=== PATIENT | female | born 1980 | race Caucasian/White ===

== ENCOUNTER 2017-07-13 00:52 | Emergency (ER) | payer OTHER ==
[~2017-07-13] VITALS: Ht 152.4 cm; Wt 68.0 kg
[2017-07-13] MEDS ORDERED: birthcontrol (01:10)
[2017-07-13] MEDS ORDERED: LIDOCAINE 1% INJ 50 ML (XYLOCAINE) VIAL ONE (01:36)
[2017-07-13] MEDS ORDERED: ONDANSETRON 4 MG (ZOFRAN) ORAL DISSOLVE TAB SL ONE (01:45)
[2017-07-13] MEDS ORDERED: LIDOCAINE 1% INJ 20 ML (XYLOCAINE) VIAL INJ ONE (01:45)
[2017-07-13] MEDS ORDERED: RX-HYDROCODONE/APAP 5/325 MG #4 TAB PK PO PRN (02:15)
--- NOTE | 2017-07-13 02:16 | ED Fall/Injury ---
General Chief Complaint: Skin/Wound Problems Stated Complaint: LAC ON L HAND Nursing Triage Note: abraision to left hand, right elbow s/p fall. denies other injuries. Source: patient Exam Limitations: no limitations History of Present Illness Date Seen by Provider: Jul 13, 2017 Time Seen by Provider: 00:55 Initial Comments This 36-year-old woman presents to the emergency room with left hand injury after falling on the sidewalk. She admits to be intoxicated as she consumed a large amount of alcohol tonight. She was walking in sandals and tripped on the sidewalk. She caught her left hand on the ground or some other object resulting in injury to the fourth and fifth finger. She reports these fingers were corrected when she assessed them after the fall. She pulled on both of them to straighten them out. She has rather intense pain at this time. She also complains of pain in the right elbow and has an abrasion over the right elbow. She denies any head injury or loss of consciousness. She is alert, oriented, and ambulatory. Patient admits to drinking daily in small quantities and large quantities on the weekend. Allergies and Home Medications Allergies Coded Allergies: latex (Verified Allergy, Unknown, 07/13/17) Uncoded Allergies: antibiotic (Adverse Reaction, Unknown, 07/13/17) Home Medications Hydrocodone/Acetaminophen 1 Each Tablet, 1 EACH PO Q4H PRN for PAIN-MODERATE TO SEVERE Prescribed by: GUCCI ARRIAGA on 07/13/17 0217 Patient Home Medication List Home Medication List Reviewed: Yes Constitutional: see HPI Eyes: No Symptoms Reported Ears, Nose, Mouth, Throat: no symptoms reported Respiratory: no symptoms reported Cardiovascular: no symptoms reported Gastrointestinal: no symptoms reported Genitourinary: no symptoms reported Musculoskeletal: see HPI Skin: see HPI Psychiatric/Neurological: See HPI Past Vwxtqzh-Lxvoje-Qfxpna Hx Patient Social History Alcohol Use: Occasionally Uses Recreational Drug Use: No Smoking Status: Never a Smoker 2nd Hand Smoke Exposure: Yes Recent Foreign Travel: No Contact w/Someone Who Travel: No Recent Infectious Disease Expo: No Recent Hopitalizations: No Immunizations Up To Date Tetanus Booster (TDap): Less than 5yrs Seasonal Allergies Seasonal Allergies: No Surgeries History of Surgeries: Yes Surgeries: Breast, Section, Orthopedic Respiratory History of Respiratory Disorde: No Cardiovascular History of Cardiac Disorders: No Neurological History of Neurological Disord: No Reproductive System : No ( control) Genitourinary History of Genitourinary Disor: No Gastrointestinal History of Gastrointestinal Di: No Musculoskeletal History of Musculoskeletal Dis: Yes Musculoskeletal Disorders: Arthritis Endocrine History of Endocrine Disorders: No HEENT History of HEENT Disorders: No Cancer History of Cancer: No Psychosocial History of Psychiatric Problem: No Integumentary History of Skin or Integumenta: No Blood Transfusions History of Blood Disorders: No Physical Exam Vital Signs Vital Signs - First Documented 07/13/17 01:00 Temp 97.8 Pulse 117 Resp 18 B/P (MAP) 121/82 (95) Pulse Ox 97 O2 Delivery Room Air Capillary Refill : Less Than 3 Seconds General Appearance: WD/WN, moderate distress, other (intoxicated) HEENT: PERRL/EOMI Neck: normal inspection Cardiovascular: regular rate, rhythm, no edema, no murmur Respiratory: lungs clear, normal breath sounds, no respiratory distress, no accessory muscle use Extremities: other (tenderness, pain, and swelling in the fourth and fifth fingers of the left.. Normal sensation and capillary refill. Abrasion and mild tenderness over the right elbow.) Neurologic/Psychiatric: clinical pathologist II-XII nml as tested, no motor/sensory deficits, alert, normal mood/affect, oriented x 3 Skin: normal color, warm/dry, other (subtle abrasions on the left fingers. Larger abrasion on the right elbow.) [place] Coma Score Best Eye Response: (4) Open Spontaneously Best Verbal Response: (5) Oriented Best Motor Response: (6) Obeys Commands [place] Total: 15 Progress/Results/Core Measures Results/Orders My Orders Orders - GUCCI MCKEON MD Elbow, Right, 3 Views (07/13/17 01:04) Hand, Left, 3 Views (07/13/17 01:04) Lidocaine 1% Injection (Xylocaine 1% Inj (07/13/17 01:45) Lidocaine 1% (Xylocaine 1%) (07/13/17 01:36) Ondansetron Oral Dissolve Tab (Zofran (07/13/17 01:45) Rx-Hydrocodone/Apap 5-325 Mg (Rx-Vicodin (07/13/17 02:15) Medications Given in ED Current Medications Medications Dose Ordered Sig/Froylan Route Start Time Stop Time Status Last Admin Dose Admin Acetaminophen/ Hydrocodone Bitart 1 ea Q4H PRN PO 07/13/17 02:15 07/13/17 02:22 DC 07/13/17 02:22 1 EA Lidocaine HCl 20 ml ONCE ONCE INJ 07/13/17 01:45 07/13/17 01:46 DC 07/13/17 01:47 20 ML Ondansetron HCl 8 mg ONCE ONCE SL 07/13/17 01:45 07/13/17 01:46 DC 07/13/17 01:47 8 MG Vital Signs/I&O Vital Sign - Last 12Hours 07/13/17 07/13/17 01:00 02:22 Temp 97.8 97.1 Pulse 117 95 Resp 18 18 B/P (MAP) 121/82 (95) 120/79 (95) Pulse Ox 97 99 O2 Delivery Room Air Room Air Blood Pressure Mean: 95 Progress Note : Progress Note Patient declined pain medication. Lidocaine was used to perform digital blocks on the fourth and fifth finger of the left hand. Approximately 8 ml of 1% percent lidocaine was injected. The angulated fourth finger was then reduced. A splint was then fashioned out of 2 inch Ortho-Glass. Patient was nauseated and Zofran was given. Capillary refill was intact in the fingers after splinting. Diagnostic Imaging Diagonstic Imaging: Xray Plain Films/CT/US/NM/MRI: hand Comments X-rays of the right hand show fractures at the base of the proximal phalanx of both the fourth and fifth finger. The fracture of the fifth finger appears impacted. The fracture of the fourth finger is angulated, displaced, and possibly comminuted. Departure Impression Impression: Primary Impression: Fracture of proximal phalanx of finger of left hand Additional Impressions: Fall from other slipping, tripping, or stumbling Alcohol intoxication Qualified Codes: F10.929 - Alcohol use, unspecified with intoxication, unspecified Multiple abrasions Disposition: 01 HOME, SELF-CARE Condition: Improved Departure-Patient Inst. Decision time for Depature: 02:12 Referrals: NO,LOCAL PHYSICIAN (PCP) Primary Care Physician OMAR CARDONA MD Patient Instructions: Finger Fracture Add. Discharge Instructions: Icing in 20 minute intervals, rest, and elevation should help with pain and swelling. Use hydrocodone as prescribed for pain. Avoid NSAID medications such as ibuprofen, aspirin, Aleve, naproxen, etc. until approved by your orthopedic provider. Follow-up with Dr. Cardona or an orthopedic provider of your choice on Friday. Dr. Cardona's contact information is below. Return to care if you have any problems, concerns, or complications. All discharge instructions reviewed with patient and/or family. Voiced understanding. Scripts Hydrocodone/Acetaminophen (Hydrocodone-Acetamin 5-325 mg) 1 Each Tablet 1 EACH PO Q4H Y for PAIN-MODERATE TO SEVERE, #10 TAB Prov: GUCCI MCKEON MD 07/13/17 GUCCI MCKEON MD Jul 13, 2017 02:16
[2017-07-13] MEDS ORDERED: HYDR-3812 PO (02:17)
[2017-07-13 02:22] VITALS: BP 120/79
--- NOTE | 2017-07-13 07:41 | Diagnostic Imaging Report ---
INDICATION: Fall, left hand pain and abrasions left hand. EXAMINATION: 07/13/2017 FINDINGS: 3 views of the hand. There is a fracture involving the proximal aspects of the fourth and fifth proximal phalanges. Both fractures are angulated with apex volar angulation. Post reduction films recommended. The fracture at the base of the fifth proximal phalanx likely extends into the adjacent proximal metacarpophalangeal joint. The remaining osseous structures appear to be intact. IMPRESSION: 1. Fractures of the fourth and fifth proximal phalanges as described above. Dictated by: Dictated on workstation # [id number]
--- NOTE | 2017-07-13 07:43 | Diagnostic Imaging Report ---
INDICATION: Fall, right elbow pain, abrasions. EXAMINATION: Right elbow 07/13/2017. COMPARISONS: None. FINDINGS: 3 views of the elbow demonstrate no significant effusion. Alignment is preserved. There is a very vague lucency through the radial head possibly a fracture line seen on 2 views. However, a joint effusion is not seen and would be expected. IMPRESSION: 1. Questioned lucency in the radial head which could be a prominent nutrient foramen with a fracture difficult to exclude. If there is persistent pain, a followup in 7-10 days recommended. Dictated by: Dictated on workstation # [id number]
== END 2017-07-13 02:22 | disposition home or self-care (01) ==
LOC: EDUNIT# 00:52 → ER 00:55
DX: S62.615A Displaced fracture of proximal phalanx of left ring finger, initial encounter for closed fracture (principal); S62.617A Displaced fracture of proximal phalanx of left little finger, initial encounter for closed fracture; R40.2142 Coma scale, eyes open, spontaneous, at arrival to emergency department; R40.2252 Coma scale, best verbal response, oriented, at arrival to emergency department; R40.2362 Coma scale, best motor response, obeys commands, at arrival to emergency department; F10.129 Alcohol abuse with intoxication, unspecified; Z77.22 Contact with and (suspected) exposure to environmental tobacco smoke (acute) (chronic); Z87.59 Personal history of other complications of pregnancy, childbirth and the puerperium; Z91.048 Other nonmedicinal substance allergy status; Z88.1 Allergy status to other antibiotic agents; W01.0XXA Fall on same level from slipping, tripping and stumbling without subsequent striking against object, initial encounter; Y92.480 Sidewalk as the place of occurrence of the external cause
CPT/HCPCS: 29130; 73080; 73130

== ENCOUNTER 2021-08-07 12:06 | Inpatient (IN) | payer MEDICAID, OTHER ==
[~2021-08-07] VITALS: Ht 152.4 cm; Wt 58.3 kg
[~2021-08-07 12:06] MED LIST: ACHD5005 PO; birthcontrol
[2021-08-07 12:30] LABS: BILIRUBIN,URINE NEGATIVE (NEGATIVE); CLARITY,URINE CLEAR; COLOR,URINE YELLOW; GLUCOSE, URINE (UA) NEGATIVE (NEGATIVE); KETONES,URINE NEGATIVE (NEGATIVE); LEUKOCYTE ESTERASE ,URINE NEGATIVE (NEGATIVE); NITRITE,URINE NEGATIVE (NEGATIVE); PH,URINE 5.5 (5-9); PROTEIN,URINE NEGATIVE (NEGATIVE)
[2021-08-07] MEDS ORDERED: NS (IVPB) 0 ML ONE (12:33)
[2021-08-07 12:37] VITALS: BP 145/98
[2021-08-07] MEDS ORDERED: HEParin 1000 UNIT/ML (10ML VIAL) FOR BOLUS ONE (12:42)
[2021-08-07] MEDS ORDERED: HEParin (CATH LAB) 1,000 ML IV ONE ×2 (12:43→12:47)
[2021-08-07] MEDS ORDERED: NS IV 1000 ML 1,000 ML ONE (12:43)
[2021-08-07 12:44] LABS: BACTERIA,URINE NEGATIVE /HPF; SQUAMOUS EPITHELIAL CELL,UR RARE /HPF; WBC,URINE RARE /HPF
[2021-08-07] MEDS ORDERED: fentaNYL INJ 100 MCG/2 ML AMP ONE (12:45)
[2021-08-07] MEDS ORDERED: EPINEPHrine 1 MG INJECTION 8 MG in NS (IVPB) 242 ML IV SCH (12:45)
[2021-08-07] MEDS ORDERED: MIDAZOLAM 5 MG/5 ML (VERSED) VIAL ONE (12:45)
[2021-08-07] MEDS ORDERED: NITRO DRIP 25000 MCG/D5W 250 ML IV ONE (12:52)
[2021-08-07] MEDS ORDERED: LIDOCAINE 1% INJ 20 ML VIAL ONE (12:53)
[2021-08-07] MEDS ORDERED: NS IV 1000 ML 1,000 ML IV ONE (13:00)
[2021-08-07] MEDS ORDERED: NS IV 1000 ML 1,000 ML IV SCH (13:00)
--- NOTE | 2021-08-07 13:06 | ED CPR ---
HPI-CPR General Chief Complaint: Respiratory Problems Stated Complaint: UNRESPONSIVE Source of Information: Family, RN/MD ([facility]) Exam Limitations: Other (No pulse so unable to give any history) History of Present Illness Date Seen by Provider: Aug 07, 2021 Time Seen by Provider: 12:06 Allergies and Home Medications Allergies Coded Allergies: latex (Verified Allergy, Unknown, 07/13/17) Uncoded Allergies: antibiotic (Adverse Reaction, Unknown, 07/13/17) Patient Home Medication List Home Medication List Reviewed: Yes Hydrocodone Bit/Acetaminophen (Lortab 5 Mg Tablet) 1 Each Tablet, 1 EACH PO Q4H PRN for PAIN-MODERATE TO SEVERE Prescribed by: GUCCI ARRIAGA on 07/13/17 0217 [birthcontrol] , 1, (Reported) Entered as Reported by: ANUP COTTRELL on 07/13/17 0110 Review of Systems Review of Systems Constitutional: see HPI (Patient does not give a meaningful review of systems or history as she is pulseless) All Other Systems Reviewed Negative Unless Noted: Yes (Family states the patient has been doing well up until today) Past Givkyoy-Mzxpbb-Homqmr Hx Patient Social History Tobacco Use?: Yes Use of E-Cig and/or Vaping dev: No Substance use?: No Immunizations Up To Date Tetanus Booster (TDap): Less than 5yrs Seasonal Allergies Seasonal Allergies: No Past Medical History Surgeries: Yes Breast, Section, Orthopedic Respiratory: No Cardiac: No Neurological: No Genitourinary: No Gastrointestinal: No Musculoskeletal: Yes Arthritis Endocrine: No HEENT: No Cancer: No Psychosocial: No Integumentary: No Blood Disorders: No Physical Exam Vital Signs Capillary Refill : Height, Weight, BMI Height: 5'0" Weight: 150lbs. oz. 68.015638vf; BMI Method:Stated General Appearance: WD/WN, Severe Distress HEENT: PERRL/EOMI (Postcode they were reactive, 3 mm bilateral, symmetric), Pharynx Normal, Moist Mucous Membranes Neck: Full Range of Motion, Normal Inspection Respiratory: Lungs Clear, Normal Breath Sounds, Respiratory Distress (Agonal gasping) Cardiovascular: No Edema; No Normal Peripheral Pulses; Other (Pulseless V. Fibrillation on the monitor after arrival) Gastrointestinal: No Organomegaly, Soft Extremity: Slow Capillary Refill, Other (Mottled extremities acral cyanosis and and perioral cyanosis) Neurologic/Psychiatric: Other (Obtunded, pulseless GCS 3 on arrival) Skin: Cyanosis, Mottled Procedures/Interventions Reason for Intubation: CPR Date of ETT Placement: Aug 07, 2021 Time of ETT Placement: 12:11 Intubation Method: orotracheal Tube Size: 7.5 Positive End Tide CO2: Yes Breath Sounds after Intubation: bilateral-equal Intubation Complications: no complications Post Intubation Xray: Yes Left mainstem bronchus intub Intubation using video laryngoscope with a channel, 3 Lucas Juan vision by Alan Marcum under direct supervision of this provider. Little bit of clear saliva seen but no emesis. Progress/Results/Core Measures Results/Orders Lab Results Laboratory Tests Test 08/07/21 12:23 Range/Units Urine Color YELLOW Urine Clarity CLEAR Urine pH 5.5 5-9 Urine Specific [place] 1.025 H 1.016-1.022 Urine Protein NEGATIVE NEGATIVE Urine Glucose (UA) NEGATIVE NEGATIVE Urine Ketones NEGATIVE NEGATIVE Urine Nitrite NEGATIVE NEGATIVE Urine Bilirubin NEGATIVE NEGATIVE Urine Urobilinogen 0.2 < = 1.0 MG/DL Urine Leukocyte Esterase NEGATIVE NEGATIVE Urine RBC (Auto) NEGATIVE NEGATIVE Urine RBC NONE /HPF Urine WBC RARE /HPF Urine Squamous Epithelial Cells RARE /HPF Urine Crystals NONE /LPF Urine Bacteria NEGATIVE /HPF Urine Casts NONE /LPF Urine Mucus NEGATIVE /LPF Urine Culture Indicated NO My Orders Orders - YANELI SPARKS Ns (Ivpb) (Sodium C... W/Epinephrine 1 (08/07/21 12:45) Ns (Ivpb) (Sodium C... W/Epinephrine 1 (08/07/21 12:45) Ns (Ivpb) (Sodium Chloride 0.9%) (08/07/21 12:33) Ed Iv/Invasive Line Start (08/07/21 12:52) Ns Iv 1000 Ml (Sodium Chloride 0.9%) (08/07/21 13:00) Ns Iv 1000 Ml (Sodium Chloride 0.9%) (08/07/21 13:00) Lidocaine Drip (Xylocaine Drip) (08/07/21 13:00) Accucheck Stat ONCE (08/07/21 12:52) Initial ECG Impression Date: Aug 07, 2021 Initial ECG Impression Time: 12:27 Initial ECG Rate: 93 Initial ECG Rhythm: Normal Sinus Initial ECG Intervals: QT (499) Initial ECG Impression: Acute MN Initial ECG Comparisson: No Previous ECG Available Comment Normal sinus rhythm with clinically significant ST elevation in leads V3, V4, V5 consistent with an anterolateral STEMI Diagnostic Imaging Diagonstic Imaging: Xray Plain Films/CT/US/NM/MRI: chest Comments [facility] [place] [facility] [employer], [place] NAME: INGRID BRITT [facility] REC#: [id number] PT STATUS: REG SDC : 1980 PHYSICIAN: DANE DYER MD ADMIT DATE: 08/07/21/ICU Signed Date of Exam:08/07/21 CHEST 1 VIEW, AP/PA ONLY EXAMINATION: Chest, one view. HISTORY: Endotracheal tube placement. COMPARISON: None available. FINDINGS: Heart size is normal. There is prominence of the pulmonary vasculature. An endotracheal tube is present within the left mainstem bronchus. Mild interstitial opacities within the perihilar and lower lungs. No pleural effusion or pneumothorax. The osseous structures are intact. IMPRESSION: 1. Endotracheal tube located within the left mainstem bronchus. Recommend retracting the catheter at least 3-4 cm. 2. Perihilar and bibasilar interstitial opacities which could be seen with pulmonary edema. Dictated by: Dictated on workstation # [id number] Dict: 08/07/21 1533 Trans: 08/07/21 1555 [id number] Interpreted by: ANUP CABRAL DO Electronically signed by: ANUP CABRAL DO 08/07/21 1555 Reviewed: Reviewed by Sc Critical Care Note Critical Care Start Time: 12:06 Stop Time: 13:00 Total Time (minutes) 54m Progress Patient arrived pulseless and chest compressions were begun in her car. A gurney was brought out and we brought her in. We started gri-skynk-kiiy ventilation as soon as we got into the ER bay 1. A code was called and appropriate help assembled. Please see nursing notes for times. An IO was put in her left tibia and she was given 2 mg Narcan through it. She was noted to be in ventricular fibrillation and delivered 200 J shock then had no pulse, asystole. 1210 pulse check again showed asystole and ET tube was placed 7.522 at the teeth with positive color change and bilateral symmetric breath sounds. Milligram epi was given along with a liter of normal saline initiated at 1212. 1213 200 J for atrial fibrillation delivered. 1215 bicarb was given. 1213 22-gauge IV in the right hand established and a 22-gauge in the left AC. 1214 144 blood sugar 1215 200 J shock for ventricular tachycardia. 1 mg epinephrine given. 1218 and amp of calcium was given 1217 300 mg amiodarone bolused IV 1218 V. fib 200 J shock given 1219 100 mg lidocaine IV given and another milligram of epinephrine IV. 1220 magnesium sulfate 1 g IV given. Ventricular fibrillation and 200 J shock delivered 1221 a Bronson was placed 1222 ventricular fibrillation and 200 J shock was delivered, pads were ascertained to be in the correct positioning 1223 1 mg epi 1224 PEA 1226 bicarb 1 amp given, second dose. 1 mg epinephrine IV given 1226 pulse check revealed the patient had a pulse and an EKG were ordered. Epinephrine drip, blood pressure and EKG ordered 1229 1/2 mg epinephrine push dose was ordered 1231 another half milligram of epinephrine was ordered push dose IV 1232 heart rate getting down into the upper 60s and a milligram of epinephrine was ordered and epinephrine drip was being initiated. EKG revealed STEMI in the anterior lateral leads and cardiology was called. 1235: Dr. Rojas arrives to the ER if examines the patient and agrees with not doing an amiodarone drip but doing a lidocaine drip 2 mg/h IV. He will take her to the Coding File [facility]. Dr. Rojas and this provider then spoke to the daughter got some more history and revealed to them that her chances were poor but we would take her to the C[facility] where we would do our best to maximize her opportunity to survive. 1240 lidocaine drip was initiated. 1242 epinephrine drip was initiated at 0.1 mcg/kg/min. 1245 NG tube placed by this provider. 1248 epinephrine drip was increased to 0.2 mcg/kg/min 1250 epinephrine drip was increased to 0.3 mcg/kg/min 1254 to the Coding File Clerk 1300 cath initiated Departure Communication (Admissions) Time/Spoke to Admitting Phy: 12:32 Dr. Rojas to the ER, reviewed the patient and agrees to take her to the Coding File Clerk. Impression Primary Impression: STEMI (ST elevation myocardial infarction) Qualified Codes: I21.3 - ST elevation (STEMI) myocardial infarction of unspecified site Additional Impression: Cardiogenic shock Disposition: ADMITTED INPATIENT Condition: Critical Admissions Decision to Admit Reason: Admit from ER (General) Decision to Admit/Date: Aug 07, 2021 Time/Decision to Admit Time: 12:32 Departure-Patient Inst. Referrals: NO,LOCAL PHYSICIAN (PCP/Family) Primary Care Physician YANELI SPARKS Aug 07, 2021 13:06
[2021-08-07] MEDS ORDERED: EPTIFIBATIDE DRIP 100 ML IV ONE (13:16)
[2021-08-07] MEDS ORDERED: EPTIFIBATIDE BOLUS 20 ML IV ONE (13:17)
[2021-08-07] MEDS ORDERED: NS (IVPB) 250 ML ONE (13:23)
[2021-08-07] MEDS ORDERED: niCARdipine IV FOR DRIP 50 MG KIT ONE (13:23)
[2021-08-07] MEDS ORDERED: CLOPIDOGREL 300 MG (PLAVIX) TABLET PO ONE (14:06)
[2021-08-07] MEDS ORDERED: ASPIRIN 81 MG CHEW (CHILDREN'S ASA) ONE (14:06)
--- NOTE | 2021-08-07 14:13 | Cardiology History & Physical ---
HPI-Cardiology Cardiology H&P Date of Admission 08/07/2021 Primary Care Physician [facility] Attending Physician Conrado Rojas MD, MA FACP [facility] Consulting Physician HPI 41 yo woman who presented to the ER in cardiac arrest. No history available. Sta monika to have gone to her doctor's for shortness of breath. Underwent resuscitation in the ER. Details of that are to be provided by the ER physician. Pulse and bp were restored, but remained in shock, requiring pressor support. ECG showed ant-lat ST elevation, indicating an OK as the source of her arrest and shock. Emergency cath was recommended, despite apparently very poor prognos is. I spoke with her only relative present (a 19 yo daughter) who agreed with emergency cath Review of Systems-Cardiology Review of Systems Constitutional: other (pt unresponsive) CFI-Wndjyl-Ffvyze Hx Patient Social History 2nd Hand Smoke Exposure: Yes Immunizations Up To Date Tetanus Booster (TDap): Less than 5yrs Past Medical History PMH As described under Assessment. Family Medical History Family Medical History: Fam h/o unobtainable (pt unresponsive) Allergies and Home Medications Allergies Coded Allergies: latex (Verified Allergy, Unknown, 07/13/17) Uncoded Allergies: antibiotic (Adverse Reaction, Unknown, 07/13/17) Patient Home Medication List Home Medication List Reviewed: Yes Hydrocodone Bit/Acetaminophen (Lortab 5 Mg Tablet) 1 Each Tablet, 1 EACH PO Q4H PRN for PAIN-MODERATE TO SEVERE Prescribed by: GUCCI ARRIAGA on 07/13/17 0217 [birthcontrol] , 1, (Reported) Entered as Reported by: ANUP COTTRELL on 07/13/17 0110 Physical Exam-Cardiology Physical Exam Vital Signs/I&O Capillary Refill : Constitutional: well-developed, well-nourished, other (unresponsive) HEENT: other (unresponsive, pupils sluggishly responsive) Neck: carotid pulses are 2 + bilaterally Respiratory: No accessory muscle use; other (on mech vent) Cardiovascular: regular rate-rhythm, S1 and S2, systolic murmur (soft LIS at card basee) Gastrointestinal: soft; No audible bowel sounds Extremities: No clubbing, No cyanosis, No significant edema Neurologic/Psychiatric: other (unresponsive) Skin: cool; No rash, No ulcerations Data Review Labs Laboratory Tests 08/07/21 12:14: Glucometer 144H 08/07/21 12:23: Urine Color YELLOW, Urine Clarity CLEAR, Urine pH 5.5, Urine Specific [place] 1.025H, Urine Protein NEGATIVE, Urine Glucose (UA) NEGATIVE, Urine Ketones NEGATIVE, Urine Nitrite NEGATIVE, Urine Bilirubin NEGATIVE, Urine Urobilinogen 0.2, Urine Leukocyte Esterase NEGATIVE, Urine RBC (Auto) NEGATIVE, Urine RBC NONE, Urine WBC RARE, Urine Squamous Epithelial Cells RARE, Urine Crystals NONE, Urine Bacteria NEGATIVE, Urine Casts NONE, Urine Mucus NEGATIVE, Urine Culture Indicated NO A/P-Cardiology Assessment/Admission Diagnosis Cardiac arrest and subsequent cardiogenic shock due to acute anterolat OK - card cath of 08/07/21: mid-vessel occlusion of LAD (treated with primary angioplasty and stenting with SkyPoint 2.5x33 stent), 60-70% prox stenosis of RCA, LVEDP 39 mmHg, LVEF 25%, ant-lat and apical hypokinesis to akinesis Admission Status: Inpatient Order (span 2 midnights) Reason for Inpatient Admission: Ac OK Cardiogenic shock Cardiac arrest Discussion and Recomendations * Admit to ICU * Hospitalist and ICU consults * Treat with DAPT, beta-casandra, OSMEL-inhib/Entresto, and spironolactone, as tolerated * Monitor labs * Prognosis guarded CONRADO ROJAS MD FACP [facility] Aug 07, 2021 14:13
[2021-08-07] MEDS ORDERED: PATIENT MAY USE OWN MEDS, ALL PO SCH (14:30)
[2021-08-07 14:32] VITALS: BP 134/67
--- NOTE | 2021-08-07 14:38 | CARDIAC CATHETERIZATION ---
DATE OF SERVICE: 08/07/2021 CARDIAC CATHETERIZATION AND CORONARY INTERVENTION REPORT The patient is a 41-year-old lady who is stated to have collapsed at her doctor's office where she had gone for symptoms of shortness of breath. She was brought via ambulance to the emergency room and was in cardiac arrest at the time of presentation. The emergency room physician carried out resuscitation and was eventually able to restore pulse and blood pressure. For details of resuscitation, please refer to the emergency room physician note. The patient was also intubated and placed on mechanical ventilation. She remained unresponsive throughout my evaluation and was not able to respond to any questions at all. The electrocardiogram showed ST elevation in the anterolateral leads. It appears likely that the cause of her cardiac arrest was an acute ST elevation myocardial infarction. I spoke with her daughter who was the only relative available, she is a 19-year-old girl. I explained the patient's condition to her and indicated that cardiac catheterization and attempted coronary intervention would be appropriate. She agreed. PROCEDURE IN DETAIL: She was brought to the cardiac catheterization laboratory. Right groin was prepared and draped in the usual sterile fashion. Lidocaine 1% was used for local anesthesia. Modified Seldinger technique was used to advance a 6-Bulgarian sheath in the right femoral artery. Because the culprit lesion appeared to be in the left coronary system, we advanced a 6-Bulgarian JL4 guide catheter to engage the left coronary system. This did not provide adequate engagement. We used a 6-Bulgarian JL3.5 catheter, which provided adequate engagement. We found that the left anterior descending artery was completely occluded in its mid portion. We used a ChoICE floppy wire to cross the lesion and the tip was placed in the distal vessel. We carried out balloon angioplasty with 2.0 x 20 mm balloon. This opened up the complete blockage. KELSEY flow improved from KELSEY 0 to KELSEY 2. We were not able to advance a stent, however. We proceeded with another balloon angioplasty with 2.5 x 30 mm balloon. We then tried to advance a Skypoint 2.5 x 33 mm stent. We were able to finally advance it with moderate difficulty. The stent was carefully positioned to cover the entire lesion. The stent was deployed at 14 atmospheres. Subsequent angiography revealed 0% stenosis at the previous site of complete occlusion. KELSEY flow improved from KELSEY 0 at the beginning to KELSEY 3 after percutaneous intervention. We used a 6-Bulgarian JR4 guide catheter to engage the right coronary artery and perform angiography. We used 6-Bulgarian pigtail catheter for left heart catheterization and left ventricular angiography. PERCUTANEOUS INTERVENTION TO THE LEFT ANTERIOR DESCENDING: Percutaneous intervention to the left anterior descending as described in detail above under the procedure paragraph. Please refer to that. LEFT VENTRICULAR ANGIOGRAPHY: Left ventricular angiography was carried out in the right anterior oblique projection. There is anterolateral and apical severe hypokinesis to akinesis. Left ventricular ejection fraction is approximately 25%. CORONARY ANGIOGRAPHY: Left main coronary artery does not exhibit significant disease. Left anterior descending artery was occluded in its mid portion and was successfully stented as detailed above. Following deployment of Skypoint 2.5 x 30 mm stent, there is no significant residual stenosis and flow throughout the vessel is normal. The right coronary artery is dominant and has 60% to 70% proximal stenosis. CONCLUSIONS: 1. Coronary artery disease primarily consisting of mid vessel occlusion of the left anterior descending artery leading to cardiac arrest and cardiogenic shock, treated successfully with percutaneous intervention with deployment of a Skypoint 2.5 x 33 mm stent to the mid left anterior descending, which resulted in no residual stenosis and improvement of flow from KELSEY 0 to KELSEY 3. The right coronary artery has 60% to 70% proximal stenosis. 2. Elevated left ventricular end-diastolic pressure. 3. Impairment of global left ventricular systolic function with anterolateral and apical severe hypokinesis to akinesis and left ventricular ejection fraction is approximately 25%. DISCUSSION AND RECOMMENDATIONS: She is being admitted to the Intensive Care Unit. Antiplatelet therapy is being provided. Beta casandra and OSMEL inhibitor therapy will be given as tolerated by blood pressure. The medical and intensive care services are being consulted. Prognosis appears guarded. Job ID: [id number] DocumentID: [id number] Dictated Date: 08/07/2021 14:06:33 Vice President For [employer]anthropy Date: 08/07/2021 14:37:09 Dictated By: JACKELYN BROWN MD, MA, FACP, FACC, MTDD
[2021-08-07] MEDS ORDERED: LORazepam INJ 2 MG/ML (ATIVAN) VIAL IVP NR (14:45)
[2021-08-07] MEDS ORDERED: PROPOFOL DRIP (ICU) 100 ML IV ONE (14:57)
[2021-08-07] MEDS: PROPOFOL DRIP (ICU) 100 ML IV SCH ×2 (15:00→19:21)
[2021-08-07] MEDS ORDERED: fentaNYL INJ 100 MCG/2 ML AMP IVP PRN (15:00)
--- NOTE | 2021-08-07 15:14 | Tele-ICU Consult ---
History of Present Illness History of Present Illness Date Seen by Provider: Aug 07, 2021 Time Seen by Provider: 15:14 Date of Admission (Tele-ICU Physician , consultation) Available chart/ vitals / labs / Images reviewed H&P is from ER notes Patient's information available about PMH, Shx, Fhx allergy reviewed in EMR. ROS as per chart and RN report Now in ICU, intubated , on pressors Video assessment done using teleICU camera, rest of exam as per RN Discussed with RN. Consultants: cardio Hospital course: 08/07 - OOH arrest , cathlab - stent to LAD A/P ACUTE STEMI - s/p laborer gold leaf - mid-vessel occlusion of LAD (treated with stenting ) 60-70% prox stenosis of RCA - LVEF 25%, - as per cards Cardiogenic shock - conmt on epi - as per cards s/p arrest OOH - ? myoclonus observed - Tx empirically with keppra , CTH ordered - normothermia protocl - to keep T <36 C Acute resp failure, post arrest - abg and cxr ordered await labs ( none done in ER Lines : (Central Line Necessity Reviewed) Bronson: 08/07 OG: Nutrition: Analgesia: Anxiety/ delirium VTE Prophylaxis: Stress Ulcer Prophylaxis: ppi Plans in collaboration with bedside consultants and IM MDs. Discussed with RN to reach out if any questions or concerns A total of 32 minutes of critical care time was devoted to this patient today, required to treat and/or prevent further deterioration of critical care condition ( as above Allergies and Home Medications Allergies Coded Allergies: latex (Verified Allergy, Unknown, 07/13/17) Uncoded Allergies: antibiotic (Adverse Reaction, Unknown, 07/13/17) Home Medications Hydrocodone Bit/Acetaminophen 1 Each Tablet, 1 EACH PO Q4H PRN for PAIN-MODERATE TO SEVERE Prescribed by: GUCCI ARRIAGA on 07/13/17 0217 Review of Systems Constitutional: see HPI Focused Exam Height, Weight, BMI Height: 5'0" Weight: 150lbs. oz. 68.611613oa; BMI Method:Stated Exam Exam Patient acknowledged, consented, and participated in this virtual visit which was conducted using real time audio/video Vital Signs Date Time Temp Pulse Resp B/P (MAP) Pulse Ox O2 Delivery O2 Flow Rate FiO2 08/07/21 15:00 115 27 133/74 99 Mechanical Ventilator 08/07/21 14:32 108 30 100 100 08/07/21 14:30 110 9 134/67 100 Mechanical Ventilator 08/07/21 12:37 98 24 100 100 Height & Weight Height: 5'0" Weight: 150lbs. oz. 68.700106sd; BMI Method:Stated General Appearance: Other Assessment/Plan Assessment/Plan ` DANE DYER MD Aug 07, 2021 15:14
--- NOTE | 2021-08-07 15:40 | Diagnostic Imaging Report ---
EXAMINATION: Chest, one view. HISTORY: Endotracheal tube placement. COMPARISON: None available. FINDINGS: Heart size is normal. There is prominence of the pulmonary vasculature. An endotracheal tube is present within the left mainstem bronchus. Mild interstitial opacities within the perihilar and lower lungs. No pleural effusion or pneumothorax. The osseous structures are intact. IMPRESSION: 1. Endotracheal tube located within the left mainstem bronchus. Recommend retracting the catheter at least 3-4 cm. 2. Perihilar and bibasilar interstitial opacities which could be seen with pulmonary edema. Dictated by: Dictated on workstation # [id number]
[2021-08-07 15:50] LABS: HEMATOCRIT 39 % (35-52); HEMOGLOBIN 12.4 g/dL (11.5-16.0); MEAN CORPUSCULAR HEMOGLOBIN 32 pg (25-34); MEAN CORPUSCULAR HGB CONC 32 g/dL (32-36); MEAN CORPUSCULAR VOLUME 98 fL (80-99); MEAN PLATELET VOLUME 9.4 fL (9.0-12.2); PLATELET COUNT 360 10^3/uL (130-400); WHITE BLOOD COUNT 23.3 10^3/uL (4.3-11.0)
[2021-08-07 15:59] LABS: ALBUMIN 3.6 GM/DL (3.2-4.5); POTASSIUM 2.8 MMOL/L (3.6-5.0)
[2021-08-07 16:00] LABS: CALCIUM 8.2 MG/DL (8.5-10.1)
[2021-08-07 16:02] LABS: TOTAL PROTEIN 5.8 GM/DL (6.4-8.2)
[2021-08-07 16:03] LABS: BILIRUBIN,TOTAL 0.5 MG/DL (0.1-1.0)
[2021-08-07 16:04] LABS: ABG BASE EXCESS -9.9 MMOL/L (-2.5-2.5); ABG OXYGEN SATURATION 98 % (94-100); ABG PCO2 29 MMHG (35-45); ABG PO2 116 MMHG (79-93); ABG TCO2 15.5 MMOL/L (21.0-31.0)
[2021-08-07 16:05] LABS: CREATININE SERUM 0.76 MG/DL (0.60-1.30)
[2021-08-07 16:08] LABS: ABG PH 7.33 (7.37-7.43)
[2021-08-07 16:09] LABS: INSPIRED O2 60%; PATIENT TEMP 37.9; VENTILATOR YES
[2021-08-07 16:10] LABS: AMPHETAMINE SCREEN, URINE NEGATIVE (NEGATIVE); BARBITURATE SCREEN URINE NEGATIVE (NEGATIVE); BENZODIAZEPINES SCREEN URINE NEGATIVE (NEGATIVE); CANNABINOID SCREEN, URINE NEGATIVE (NEGATIVE); COCAINE SCREEN URINE NEGATIVE (NEGATIVE); METHADONE STAT NEGATIVE (NEGATIVE); METHAMPHETAMINE SCREEN URINE S NEGATIVE (NEGATIVE); OPIATE SCREEN URINE NEGATIVE (NEGATIVE); OXYCODONE STAT NEGATIVE (NEGATIVE); PROPOXYPHENE STAT NEGATIVE (NEGATIVE); TRICYCLIC ANTIDEPRESSANTS SCRE NEGATIVE (NEGATIVE)
[2021-08-07] MEDS: EPINEPHrine 1 MG INJECTION 4 MG in NS (IVPB) 246 ML IV SCH (16:25)
[2021-08-07] MEDS: LIDOCAINE DRIP 500 ML IV SCH (16:26)
[2021-08-07] MEDS: NS IV 1000 ML 1,000 ML IV SCH (16:26)
--- NOTE | 2021-08-07 16:33 | History & Physical-Hospitalist ---
MARIANGEL PENA MED STUDENT 08/07/21 1633: History of Present Illness HPI/Chief Complaint CC: STEMI HPI: This is Miss Terry, a 41 y, with an unknown past medical history, who presented to the ED by POV and was found to be in cardiac arrest. She had gone to [facility] for worsening shortness of breath and was told to go to the emergency room. Her primary care physician is unknown at this time. During the car ride to the ED, she suffered a cardiac arrest and was unresponsive upon presentation to the ED. A code was ran for her in the ED, during which she was intubated. She was in ventricular fibrillation and required 6 defibrillations. They were able to obtain a pulse and blood pressure. Pt still in shock requiring pressor therapy. EKG was evident for anterolateral ST elevation. She was sent for emergency cardiac catheterization by Dr. Rojas. A stent was placed in her LAD. LVEF was 25%. She was then transferred to the ICU, where she is actively intubated and sedated. Source: RN/, RN notes reviewed, old records Exam Limitations: clinical condition Date Seen 08/07/21 Time Seen by a Provider: 04:15 Attending Physician Conrado Rojas MD Facp Fac Ccds PCP No,Local Physician Referring Physician Date of Admission Aug 07, 2021 at 14:26 Home Medications & Allergies Home Medications Reviewed patient Home Medication Reconciliation performed by pharmacy medication reconciliations in tube conversion technician and/or nursing. Patients Allergies have been reviewed. Allergies Allergies Coded Allergies latex (Verified Allergy, Unknown, 07/13/17) Uncoded Allergies antibiotic ( Adverse Reaction, Unknown, 07/13/17) Past Yiwvdgx-Tkkeam-Xfzreo Hx Patient Social History Tobacco Use?: No Alcohol Use?: Yes Seasonal Allergies Seasonal Allergies: No Past Medical History Surgeries: Breast, Section, Orthopedic Arthritis Blood Disorders: No Family Medical History Heart Disease (Father at young age from cardiac problems ) Information above is from older records. Unable to get accurate past medical history due to clinical condition. Review of Systems ROS-Unable to Obtain: Unable to obtain due to clinical condition Physical Exam Physical Exam Vital Signs Vital Signs - First Documented 08/07/21 08/07/21 08/07/21 12:37 14:30 16:00 Temp 37.9 Pulse 98 Resp 24 B/P (MAP) 134/67 Pulse Ox 100 O2 Delivery Mechanical Ventilator FiO2 100 Capillary Refill : Height, Weight, BMI Height: 5'0" Weight: 150lbs. oz. 68.238208ik; BMI Method:Stated General Appearance: WD/WN, Severe Distress Eyes: Bilateral Eye PERRL HEENT: PERRL/EOMI (appropriate pupillary reflex ); No Scleral Icterus (L), No Scleral Icterus (R) Neck: Non Tender; No Lymphadenopathy (L), No Lymphadenopathy (R) Respiratory: Lungs Clear, Respiratory Distress, Other (intubated and on ventilator ) Cardiovascular: No Edema, No Murmur, Normal Peripheral Pulses, Tachycardia, Other (regular rhythm ) Gastrointestinal: Normal Bowel Sounds, Soft Extremity: Normal Capillary Refill, Normal Inspection, No Pedal Edema Neurologic/Psychiatric: Other (pupillary reflex intact bilaterally, bilateral weak corneal reflexes, reflex to painful stimuli only, unable to obtain full neuro exam due to clinical condition. ) Skin: Normal Color, Warm/Dry Lymphatic: No Adenopathy Comments Patient intubated and sedated at this time. Weak corneal reflexes Withdrawals from painful stimuli Results Results/Procedures Labs Laboratory Tests 08/07/21 15:30 Patient resulted labs reviewed. Assessment/Plan Admission Diagnosis Cardiac Arrest Assessment and Plan Assessment - Cardiac arrest - Cardiogenic shock - S/P cardiac catheterization - lactic acidosis - leukocytosis - transaminitis - hypokalemia - elevated troponins Plan - appreciate cardiology - appreciate eICU - S/P LAD stenting - intubated and sedated on ventilator - IVF - Keppra - pressor therapy - Supportive care - electrolyte replacement - very poor prognosis KATHIA OCHOA DO 08/08/21 2015: History of Present Illness HPI/Chief Complaint CC: Cardiac arrest HPI: This is a 41 yr old WF with a past medical history of alcohol use in addition to early family history of premature CAD and sudden cardiac . She presents to the ICU bed 9 after cardiac cath emergently when she presented to the ER by private vehicle. She was found to have ventricular tachycardia status post multiple shocks and now remains on aggressive pressure therapy. Temperature was low overnight and maintained on the ventilator. We will check her neurological status when she is able to be weaned off the ventilator. Overall poor prognosis given her ejection fraction of 15%. Source: patient Past Rdurdqq-Kzuikl-Jvxvzq Hx Patient Social History Smoking Status: Unknown if Ever Smoked Alcohol Use?: Yes Review of Systems Constitutional: see HPI Physical Exam Physical Exam General Appearance: Chronically ill, Other (Sedated and intubated) Respiratory: Lungs Clear, Normal Breath Sounds Cardiovascular: Regular Rate, Rhythm Assessment/Plan Admission Diagnosis Assessment: Cardiac arrest Ventilator dependent Ventricular tachycardia status post shocks History of alcohol use Plan: Supportive care Monitor closely Prognosis guarded Admission Status: Inpatient Order (span 2 midnights) Reason for Inpatient Admission: Cardiac arrest Diagnosis/Problems Diagnosis/Problems (1) Cardiogenic shock (2) STEMI (ST elevation myocardial infarction) Status: Acute Qualifiers: Involved coronary artery: unspecified coronary artery Qualified Codes: I 21.3 - ST elevation (STEMI) myocardial infarction of unspecified site Supervisory-Addendum Brief Verification & Attestation Participated in pt care: history, MDM, physical Personally performed: exam, history, MDM, supervision of care Care discussed with: Medical Student Procedures: n/a Results interpretation: Verified all documentation Verification and Attestation of Medical Student E/M Service A medical student performed and documented this service in my presence. I reviewed and verified all information documented by the medical student and made modifications to such information, when appropriate. I personally performed the physical exam and medical decision making. Kathia Ochoa, Aug 09, 2021,04:56 MARIANGEL PENA MED STUDENT Aug 07, 2021 16:33 KATHIA OCHOA DO Aug 08, 2021 20:15
[2021-08-07] MEDS ORDERED: MAGNESIUM 2 GM/50 ML IVPB 50 ML IV ONE (16:45)
[2021-08-07] MEDS ORDERED: KCL 20 MEQ TAB (K-DUR) PO NR (16:45)
[2021-08-07] MEDS ORDERED: CALCIUM CHLORIDE 10% INJECTION 1 GM in NS (IVPB) 100 ML IV PRN (17:00)
[2021-08-07] MEDS ORDERED: LACRI-LUBE OPTHALMIC OINT 3.5 GM TUBE OU PRN ×3 (17:00→17:45)
[2021-08-07] MEDS ORDERED: ROCURONIUM 50 MG/5 ML (ZEMURON) VIAL IV PRN (17:00)
[2021-08-07] MEDS ORDERED: MAGNESIUM SULFATE DRIP 500 ML IV SCH (17:00)
[2021-08-07] MEDS ORDERED: fentaNYL DRIP PRE-MIX 250 ML IV SCH (17:00)
[2021-08-07] MEDS ORDERED: PROPOFOL DRIP (ICU) 100 ML IV SCH (17:00)
[2021-08-07] MEDS ORDERED: [UNRECOGNIZED DRUG - OTHER] IV SCH (17:00)
[2021-08-07] MEDS ORDERED: LACRI-LUBE OPTHALMIC OINT 3.5 GM TUBE OU SCH (17:00)
[2021-08-07] MEDS ORDERED: SODIUM PHOSPHATE INJ 30 MM in NS (IVPB) 250 ML IV PRN (17:00)
[2021-08-07] MEDS ORDERED: LORAZEPAM IV SCH (17:00)
[2021-08-07] MEDS ORDERED: SODIUM CHLORIDE IV SCH (17:00)
[2021-08-07] MEDS ORDERED: MAG SULFATE 2 GM/50 ML IV PRE-MIX BAG IV NR (17:15)
[2021-08-07] MEDS ORDERED: LORazepam INJ 2 MG/ML (ATIVAN) VIAL IV NR (17:15)
[2021-08-07] MEDS ORDERED: fentaNYL INJ 100 MCG/2 ML AMP IV NR (17:15)
[2021-08-07] MEDS ORDERED: ROCURONIUM 10 MG/ML 5 ML SYRINGE IV NR (17:15)
[2021-08-07] MEDS: POTASSIUM CL 10MEQ/50ML IVPB 50 ML IV SCH ×4 (17:35→20:13)
[2021-08-07] MEDS: MAGNESIUM 1 GM/D5W 100 ML IVPB IV SCH ×2 (17:36→18:32)
[2021-08-07] MEDS ORDERED: ROCURONIUM 10 MG/ML 5 ML SYRINGE IV PRN (17:45)
[2021-08-07 17:48] LABS: BASOPHILS % (AUTO) 0 % (0-10); EOSINOPHILS % (AUTO) 0 % (0-10); HEMATOCRIT 37 % (35-52); HEMOGLOBIN 12.3 g/dL (11.5-16.0); LYMPHOCYTES # (AUTO) 0.6 10^3/uL (1.0-4.0); LYMPHOCYTES % (AUTO) 3 % (12-44); MEAN CORPUSCULAR HEMOGLOBIN 32 pg (25-34); MEAN CORPUSCULAR HGB CONC 33 g/dL (32-36); MEAN CORPUSCULAR VOLUME 94 fL (80-99); MEAN PLATELET VOLUME 9.7 fL (9.0-12.2); MONOCYTES # (AUTO) 0.9 10^3/uL (0.0-1.0); MONOCYTES % (AUTO) 4 % (0-12); NEUTROPHILS # (AUTO) 18.7 10^3/uL (1.8-7.8); NEUTROPHILS % (AUTO) 92 % (42-75); PLATELET COUNT 303 10^3/uL (130-400); WHITE BLOOD COUNT 20.3 10^3/uL (4.3-11.0)
[2021-08-07 17:58] LABS: ALBUMIN 3.4 GM/DL (3.2-4.5)
[2021-08-07 17:59] LABS: CALCIUM 7.7 MG/DL (8.5-10.1)
[2021-08-07 18:00] LABS: FIBRIN DEGRADATION PRODUCTS >= 20.00 UG/ML (0.00-0.49); FIBRINOGEN 370 MG/DL (221-496); PARTIAL THROMBOPLASTIN TIME 50 SEC (24-35); PROTHROMBIN TIME PATIENT 13.6 SEC (12.2-14.7)
[2021-08-07] MEDS ORDERED: ACETAMINOPHEN 325 MG TABLET GT SCH (18:00)
[2021-08-07] MEDS ORDERED: POTASSIUM CL 10MEQ/50ML IVPB 50 ML IV SCH (18:00)
[2021-08-07 18:01] LABS: TOTAL PROTEIN 5.6 GM/DL (6.4-8.2)
[2021-08-07] MEDS ORDERED: ATROPINE INJECTION 1 MG/10 ML SYR (ABBOTT) ONE (18:01)
[2021-08-07 18:02] LABS: BILIRUBIN,TOTAL 0.4 MG/DL (0.1-1.0)
--- NOTE | 2021-08-07 18:03 | Diagnostic Imaging Report ---
INDICATION: Tube placement. Comparison is made with prior exam of 08/07/2021. FINDINGS: The endotracheal tube has been withdrawn slightly and now is at the thoracic inlet. There are moderate bilateral perihilar infiltrates. There is no pleural effusion or pneumothorax. The mediastinum is unremarkable. IMPRESSION: The endotracheal tube has been withdrawn slightly and now is at the thoracic inlet, approximately 1 cm above the selena. Bilateral perihilar infiltrates possibly reflecting pneumonia or central pulmonary venous congestion. Recommend clinical correlation. Dictated by: Dictated on workstation # [id number]
[2021-08-07 18:04] LABS: CREATININE SERUM 0.67 MG/DL (0.60-1.30); PHOSPHORUS 1.9 MG/DL (2.3-4.7)
[2021-08-07 18:06] LABS: BILIRUBIN,DIRECT 0.1 MG/DL (0.0-0.3); BILIRUBIN,INDIRECT 0.3 MG/DL
[2021-08-07 18:07] LABS: MAGNESIUM 1.6 MG/DL (1.6-2.4)
[2021-08-07 18:18] LABS: ABG BASE EXCESS -6.9 MMOL/L (-2.5-2.5); ABG OXYGEN SATURATION 100 % (94-100); ABG PCO2 26 MMHG (35-45); ABG PH 7.43 (7.37-7.43); ABG PO2 149 MMHG (79-93); ABG TCO2 17.1 MMOL/L (21.0-31.0)
[2021-08-07 18:22] LABS: INSPIRED O2 60%; PATIENT TEMP 38.3; VENTILATOR YES
[2021-08-07] MEDS: meTOprolol 5 MG/5 ML (LOPRESSOR) VIAL IV SCH (18:36)
[2021-08-07] MEDS ORDERED: D5W 250 ML (EXCEL) BAG IV ONE (18:48)
[2021-08-07] MEDS ORDERED: LIDOCAINE DRIP PRE-MIX 2 GM/500 ML BAG IV ONE (18:48)
[2021-08-07] MEDS ORDERED: AMIODARONE (BOLUS) 150 MG/3 ML IV ONE ×2 (18:48→18:54)
[2021-08-07 18:51] LABS: BAND NEUTROPHILS 5 %; LYMPHOCYTES % (MANUAL) 5 %; MONOCYTES % (MANUAL) 2 %; NEUTROPHILS % (MANUAL) 88 %; RBC MORPH NORMAL
[2021-08-07] MEDS ORDERED: MIDAZOLAM 5 MG/5 ML (VERSED) VIAL IJ ONE (18:54)
[2021-08-07] MEDS ORDERED: SODIUM BICARB 8.4% 50 MEQ/50 ML (ABBOTT) SYR INJ ONE (18:54)
[2021-08-07] MEDS ORDERED: CALCIUM CHLORIDE 1 GM/10 ML (IMS) SYR INJ ONE (18:54)
[2021-08-07] MEDS ORDERED: NS 1000 ML IV BAG IV ONE (18:54)
[2021-08-07] MEDS ORDERED: LIDOCAINE BOLUS 100 MG/5 ML (IMS) SYR INJ ONE (18:54)
[2021-08-07] MEDS ORDERED: EPINEPHrine 0.1 MG/ML 10 ML (HOSPIRA) SYR INJ ONE (18:54)
[2021-08-07] MEDS ORDERED: MAGNESIUM SULF 5 GM/10 ML VIAL IV ONE (18:54)
[2021-08-07] MEDS ORDERED: CATHETER FLUSH 10 ML SYR IVP ONE (18:54)
[2021-08-07] MEDS: inSUlin ASPART (NovoLOG) 1 UNIT/0.01 ML (CHARGE PER UNIT) SC SCH (19:20)
[2021-08-07] MEDS ORDERED: DexMEDEtomidine 250 ML DRIP 250 ML IV ONE (19:44)
[2021-08-07] MEDS ORDERED: NOREPINEPHRINE 8 MG/250 ML 250 ML IV ONE (19:44)
[2021-08-07] MEDS ORDERED: fentaNYL DRIP PRE-MIX 250 ML IV ONE (19:44)
[2021-08-07] MEDS: DexMEDEtomidine 250 ML DRIP 250 ML IV SCH (19:52)
[2021-08-07] MEDS: NOREPINEPHRINE 8 MG/250 ML 250 ML IV SCH (19:59)
[2021-08-07] MEDS: fentaNYL DRIP PRE-MIX 250 ML IV SCH (20:12)
[2021-08-07] MEDS ORDERED: busPIRone 15 MG (BUSPAR) TABLET GT SCH (22:00)
[2021-08-07 23:18] LABS: BILIRUBIN,URINE NEGATIVE (NEGATIVE); CLARITY,URINE CLOUDY; COLOR,URINE YELLOW; GLUCOSE, URINE (UA) NEGATIVE (NEGATIVE); KETONES,URINE TRACE (NEGATIVE); LEUKOCYTE ESTERASE ,URINE NEGATIVE (NEGATIVE); NITRITE,URINE NEGATIVE (NEGATIVE); PROTEIN,URINE 1+ (NEGATIVE)
[2021-08-07 23:27] LABS: AMORPHOUS SEDIMENT,UR LARGE AMOR URATES /LPF; BACTERIA,URINE FEW /HPF; SQUAMOUS EPITHELIAL CELL,UR 0-2 /HPF
[2021-08-08] MEDS: CEFEPIME INJECTION 1,000 MG in NS (IVPB) 50 ML IV SCH ×5 (00:30→23:36)
[2021-08-08] MEDS: meTOprolol 5 MG/5 ML (LOPRESSOR) VIAL IV SCH ×4 (00:40→17:29)
[2021-08-08] MEDS: inSUlin ASPART (NovoLOG) 1 UNIT/0.01 ML (CHARGE PER UNIT) SC SCH ×4 (01:01→18:40)
[2021-08-08 02:51] LABS: BASOPHILS % (AUTO) 0 % (0-10); EOSINOPHILS % (AUTO) 0 % (0-10); HEMATOCRIT 36 % (35-52); HEMOGLOBIN 11.7 g/dL (11.5-16.0); LYMPHOCYTES # (AUTO) 1.5 10^3/uL (1.0-4.0); LYMPHOCYTES % (AUTO) 7 % (12-44); MEAN CORPUSCULAR HEMOGLOBIN 31 pg (25-34); MEAN CORPUSCULAR HGB CONC 33 g/dL (32-36); MEAN CORPUSCULAR VOLUME 95 fL (80-99); MEAN PLATELET VOLUME 9.8 fL (9.0-12.2); MONOCYTES # (AUTO) 0.9 10^3/uL (0.0-1.0); MONOCYTES % (AUTO) 4 % (0-12); NEUTROPHILS # (AUTO) 19.9 10^3/uL (1.8-7.8); NEUTROPHILS % (AUTO) 89 % (42-75); PLATELET COUNT 425 10^3/uL (130-400); WHITE BLOOD COUNT 22.5 10^3/uL (4.3-11.0)
[2021-08-08 02:56] LABS: ABG BASE EXCESS -11.4 MMOL/L (-2.5-2.5); ABG OXYGEN SATURATION 98 % (94-100); ABG PCO2 24 MMHG (35-45); ABG PH 7.36 (7.37-7.43); ABG PO2 80 MMHG (79-93); ABG TCO2 14.5 MMOL/L (21.0-31.0)
[2021-08-08 02:57] LABS: POTASSIUM 3.3 MMOL/L (3.6-5.0)
[2021-08-08 02:58] LABS: CALCIUM 6.8 MG/DL (8.5-10.1)
[2021-08-08 03:02] LABS: ALLENS TEST YES-POS
[2021-08-08 03:03] LABS: INSPIRED O2 35%; PATIENT TEMP 33.6; VENTILATOR YES
[2021-08-08 03:03] LABS: CREATININE SERUM 0.61 MG/DL (0.60-1.30)
[2021-08-08 03:05] LABS: MAGNESIUM 2.1 MG/DL (1.6-2.4)
[2021-08-08] MEDS: NOREPINEPHRINE 8 MG/250 ML 250 ML IV SCH ×2 (03:18→11:34)
[2021-08-08] MEDS: ENALAPRILAT 2.5 MG/2 ML (VASOTEC) VIAL IV SCH ×3 (04:54→21:45)
[2021-08-08] MEDS: LIDOCAINE DRIP 500 ML IV SCH ×2 (04:55→21:53)
[2021-08-08] MEDS: EPINEPHrine 1 MG INJECTION 4 MG in NS (IVPB) 246 ML IV SCH ×3 (04:55→18:41)
[2021-08-08] MEDS: POTASSIUM CL 10MEQ/50ML IVPB 50 ML IV SCH ×5 (06:22→09:19)
[2021-08-08] MEDS: NS IV 1000 ML 1,000 ML IV SCH ×4 (06:33→22:39)
[2021-08-08] MEDS: KCL 20 MEQ TAB (K-DUR) PO SCH (06:34)
[2021-08-08] MEDS: MAGNESIUM 1 GM/100 ML IVPB 100 ML IV SCH (06:35)
--- NOTE | 2021-08-08 07:03 | Diagnostic Imaging Report ---
INDICATION: Status post cardiac arrest TECHNIQUE: Routine non contrast-enhanced axial images were obtained from the skull base to the vertex. Auto Exposure Controls were utilized during the CT exam to meet ALARA standards for radiation dose reduction COMPARISON: None. FINDINGS: The ventricles and cortical sulci are normal in size and contour. There is no midline shift or mass-effect. No acute intra-axial hemorrhage is seen. There are no abnormal areas of increased or decreased density to suggest acute hemorrhage or edema. No extra-axial masses or collections are present. The bony calvarium is intact. The visualized paranasal sinuses are unremarkable. The mastoid air cells are clear. IMPRESSION: 1. No acute intracranial abnormality. No CT evidence of mass, acute infarct or intracranial hemorrhage. 2. I agree with [facility] report. Dictated by: Dictated on workstation # [id number]
[2021-08-08 08:00] VITALS: BP 112/80
[2021-08-08] MEDS: ASPIRIN 81 MG CHEW (CHILDREN'S ASA) PO SCH (08:05)
[2021-08-08] MEDS: PANTOPRAZOLE 40 MG (PROTONIX) VIAL IV SCH (08:05)
[2021-08-08] MEDS: CLOPIDOGREL 75 MG (PLAVIX) TABLET PO SCH (08:05)
--- NOTE | 2021-08-08 08:59 | Progress Note - Cardiology ---
Cardiology SOAP Progress Note Subjective: Unresponsive On [facility] vent Objective: I&O/Vital Signs 08/07/21 08/07/21 08/07/21 08/07/21 21:05 22:00 22:00 22:12 Pulse 85 82 81 Resp B/P (MAP) 125/66 123/69 Pulse Ox 99 100 96 O2 Delivery Mechanical Ventilator Mechanical Ventilator Mechanical Ventilator O2 Flow Rate 50.00 35.00 35.00 FiO2 35 08/07/21 08/08/21 08/08/21 08/08/21 23:35 00:00 00:26 00:27 Temp 35.5 34.7 Pulse 73 Resp B/P (MAP) 112/86 Pulse Ox 95 O2 Delivery Mechanical Ventilator Mechanical Ventilator Mechanical Ventilator O2 Flow Rate 35.00 40.00 FiO2 40 08/08/21 08/08/21 08/08/21 08/08/21 00:30 01:00 01:02 02:00 Pulse 72 68 66 57 Resp B/P (MAP) 125/90 112/87 129/97 Pulse Ox 94 100 O2 Delivery Mechanical Ventilator Mechanical Ventilator Mechanical Ventilator O2 Flow Rate 40.00 40.00 40.00 08/08/21 08/08/21 08/08/21 08/08/21 02:32 03:15 03:18 03:25 Pulse 59 57 63 57 Resp B/P (MAP) 119/72 119/72 127/95 Pulse Ox 100 100 100 O2 Delivery Mechanical Ventilator Mechanical Ventilator O2 Flow Rate 40.00 35.00 FiO2 35 08/08/21 08/08/21 08/08/21 08/08/21 04:00 04:00 04:00 04:01 Temp 33.3 34.1 Pulse 59 58 Resp B/P (MAP) 121/91 121/91 Pulse Ox 100 100 100 O2 Delivery Mechanical Ventilator Mechanical Ventilator O2 Flow Rate 35.00 FiO2 35 08/08/21 08/08/21 08/08/21 08/08/21 05:00 06:00 06:59 07:00 Temp 36.1 Pulse 64 69 69 Resp B/P (MAP) 112/84 106/74 108/78 Pulse Ox 100 100 100 O2 Delivery Mechanical Ventilator Mechanical Ventilator Mechanical Ventilator O2 Flow Rate 35.00 30.00 30.00 08/08/21 08/08/21 08/08/21/20/22 07:00 07:00 07:44 07:57 Temp 36.0 36.0 Pulse 67 Resp 21 Pulse Ox 100 O2 Delivery Mechanical Ventilator O2 Flow Rate 25.00 08/08/21 08:00 Pulse 64 Resp 22 Pulse Ox 100 FiO2 25 08/08/21 00:00 Intake Total 440 ml Output Total 2050 ml Balance -1610 ml Weight (Pounds): 150 Weight (Calculated Kilograms): 68.944525 Constitutional: well-developed, well-nourished, other (unresponsive) Respiratory: No accessory muscle use; other (on mech vent) Cardiovascular: regular rate-rhythm, S1 and S2, systolic murmur (soft LIS at card basee) Gastrointestional: soft, audible bowel sounds Extremities: No clubbing, No cyanosis, No significant edema Neurologic/Psychiatric: other (unresponsive) Skin: cool; No rash, No ulcerations Results/Procedures: Labs Laboratory Tests 08/07/21 12:14: Glucometer 144H 08/07/21 12:23: Urine Color YELLOW, Urine Clarity CLEAR, Urine pH 5.5, Urine Specific Linwood 1.025H, Urine Protein NEGATIVE, Urine Glucose (UA) NEGATIVE, Urine Ketones NEGATIVE, Urine Nitrite NEGATIVE, Urine Bilirubin NEGATIVE, Urine Urobilinogen 0.2, Urine Leukocyte Esterase NEGATIVE, Urine RBC (Auto) NEGATIVE, Urine RBC NONE, Urine WBC RARE, Urine Squamous Epithelial Cells RARE, Urine Crystals NONE, Urine Bacteria NEGATIVE, Urine Casts NONE, Urine Mucus NEGATIVE, Urine Culture Indicated NO 08/07/21 13:00: Urine Opiates Screen NEGATIVE, Urine Oxycodone Screen NEGATIVE, Urine Methadone Screen NEGATIVE, Urine Propoxyphene Screen NEGATIVE, Urine Barbiturates Screen NEGATIVE, Ur Tricyclic Antidepressants Screen NEGATIVE, Urine Phencyclidine Screen NEGATIVE, Urine Amphetamines Screen NEGATIVE, Urine Methamphetamines Screen NEGATIVE, Urine Benzodiazepines Screen NEGATIVE, Urine Cocaine Screen NEGATIVE, Urine Cannabinoids Screen NEGATIVE 08/07/21 15:30: White Blood Count 23.3H, Red Blood Count 3.94, Hemoglobin 12.4, Hematocrit 39, Mean Corpuscular Volume 98, Mean Corpuscular Hemoglobin 32, Mean Corpuscular Hemoglobin Concent 32, Red Cell Distribution Width 12.1, Platelet Count 360, Mean Platelet Volume 9.4, Prothrombin Time 13.6, INR Comment 1.0, Activated Partial Thromboplast Time 50H, Fibrinogen 370, D-Dimer >= 20.00H, Sodium Level 138, Potassium Level 2.8L, Chloride Level 104, Carbon Dioxide Level 12L, Anion Gap 22H, Blood Urea Nitrogen 16, Creatinine 0.76, Estimat Glomerular Filtration Rate 102, BUN/Creatinine Ratio 21, Glucose Level 309H, Lactic Acid Level 6.65*H, Calcium Level 8.2L, Corrected Calcium 8.5, Magnesium Level 2.0, Total Bilirubin 0.5, Aspartate Amino Transf (AST/SGOT) 246H, Alanine Aminotransferase (ALT/SGPT) 165H, Alkaline Phosphatase 86, Troponin I 9.426*H, Total Protein 5.8L, Albumin 3.6, Triglycerides Level 147 08/07/21 15:55: Blood Gas Puncture Site ART LINE, Blood Gas Patient Temperature 37.9, Arterial Blood pH 7.33*L, Arterial Blood Partial Pressure CO2 29L, Arterial Blood Partial Pressure O2 116H, Arterial Blood HCO3 15*L, Arterial Blood Total CO2 15.5L, Arterial Blood Oxygen Saturation 98, Arterial Blood Base Excess -9.9L, Alo Test N/A, Blood Gas Ventilator Setting YES, Blood Gas Inspired Oxygen 60% 08/07/21 17:30: Procalcitonin 1.13H 08/07/21 17:45: White Blood Count 20.3H, Red Blood Count 3.91, Hemoglobin 12.3, Hematocrit 37, M saúl Corpuscular Volume 94, Mean Corpuscular Hemoglobin 32, Mean Corpuscular Hemoglobin Concent 33, Red Cell Distribution Width 11.9, Platelet Count 303, Mean Platelet Volume 9.7, Immature Granulocyte % (Auto) 0, Neutrophils (%) (Auto) 92H, Lymphocytes (%) (Auto) 3L, Monocytes (%) (Auto) 4, Eosinophils (%) (Auto) 0, Basophils (%) (Auto) 0, Neutrophils # (Auto) 18.7H, Lymphocytes # (Auto) 0.6L, Monocytes # (Auto) 0.9, Eosinophils # (Auto) 0.0, Basophils # (Auto) 0.0, Immature Granulocyte # (Auto) 0.1, Neutrophils % (Manual) 88, Lymphocytes % (Manual) 5, Monocytes % (Manual) 2, Band Neutrophils 5, Blood Morphology Comment NORMAL, Sodium Level 138, Potassium Level 3.0L, Chloride Level 107, Carbon Dioxide Level 13L, Anion Gap 18H, Blood Urea Nitrogen 14, Creatinine 0.67, Estimat Glomerular Filtration Rate 114, BUN/Creatinine Ratio 21, Glucose Level 213H, Lactic Acid Level 3.17*H, Calcium Level 7.7L, Corrected Calcium 8.2L, Phosphorus Level 1.9L, Magnesium Level 1.6, Total Bilirubin 0.4, Direct Bilirubin 0.1, Indirect Bilirubin 0.3, Aspartate Amino Transf (AST/SGOT) 222H, Alanine Aminotransferase (ALT/SGPT) 149H, Alkaline Phosphatase 76, Total Creatine Kinase 791H, Troponin I 19.059*H, Total Protein 5.6L, Albumin 3.4, Triglycerides Level 527#H, Amylase Level 137H, Lipase 31, Serum Test, Qualitative NEGATIVE 08/07/21 18:00: Blood Gas Puncture Site LEFT FEMORAL, Blood Gas Patient Temperature 38.3, Arterial Blood pH 7.43, Arterial Blood Partial Pressure CO2 26L, Arterial Blood Partial Pressure O2 149H, Arterial Blood HCO3 16*L, Arterial Blood Total CO2 17.1L, Arterial Blood Oxygen Saturation 100, Arterial Blood Base Excess -6.9L, Alo Test N/A, Blood Gas Ventilator Setting YES, Blood Gas Inspired Oxygen 60% 08/07/21 20:18: Lactic Acid Level 2.65*H 08/07/21 22:24: Lactic Acid Level 4.27*H 08/07/21 23:10: Urine Color YELLOW, Urine Clarity CLOUDY, Urine pH 5.0, Urine Specific Linwood >=1.030, Urine Protein 1+H, Urine Glucose (UA) NEGATIVE, Urine Ketones TRACEH, Urine Nitrite NEGATIVE, Urine Bilirubin NEGATIVE, Urine Urobilinogen 0.2, Urine Leukocyte Esterase NEGATIVE, Urine RBC (Auto) 3+H, Urine RBC 10-25H, Urine WBC NONE, Urine Squamous Epithelial Cells 0-2, Urine Crystals PRESENTH, Urine Amorphous Sediment LARGE MITCHELL URATESH, Urine Bacteria FEWH, Urine Casts NONE, Urine Mucus NEGATIVE, Urine Culture Indicated CULTURE PENDING 08/08/21 00:38: Glucometer 183H 08/08/21 02:29: White Blood Count 22.5H, Red Blood Count 3.80, Hemoglobin 11.7, Hematocrit 36, Mean Corpuscular Volume 95, Mean Corpuscular Hemoglobin 31, Mean Corpuscular Hemoglobin Concent 33, Red Cell Distribution Width 12.1, Platelet Count 425H, Mean Platelet Volume 9.8, Immature Granulocyte % (Auto) 1, Neutrophils (%) (Auto) 89H, Lymphocytes (%) (Auto) 7L, Monocytes (%) (Auto) 4, Eosinophils (%) (Auto) 0, Basophils (%) (Auto) 0, Neutrophils # (Auto) 19.9H, Lymphocytes # (Auto) 1.5, Monocytes # (Auto) 0.9, Eosinophils # (Auto) 0.0, Basophils # (Auto) 0.0, Immature Granulocyte # (Auto) 0.1, Sodium Level 138, Potassium Level 3.3L, Chloride Level 110H, Carbon Dioxide Level 13L, Anion Gap 15H, Blood Urea Nitroge n 17, Creatinine 0.61, Estimat Glomerular Filtration Rate 117, BUN/Creatinine Ratio 28, Glucose Level 200H, Lactic Acid Level 4.01*H, Calcium Level 6.8L, Phosphorus Level 2.0L, Magnesium Level 2.1, Triglycerides Level 60 08/08/21 02:37: Blood Gas Puncture Site RIGHT RADIAL, Blood Gas Patient Temperature 33.6, Arterial Blood pH 7.36L, Arterial Blood Partial Pressure CO2 24L, Arterial Blood Partial Pressure O2 80, Arterial Blood HCO3 14*L, Arterial Blood Total CO2 14.5L , Arterial Blood Oxygen Saturation 98, Arterial Blood Base Excess -11.4L, Alo Test YES-POS, Blood Gas Ventilator Setting YES, Blood Gas Inspired Oxygen 35% 08/08/21 05:10: Lactic Acid Level 2.74*H 08/08/21 05:14: Glucometer 143H 08/08/21 07:40: Lactic Acid Level 1.54 Microbiology 08/07/21 Gram Stain - Final, Resulted 08/07/21 Sputum Culture - Preliminary, Resulted Laboratory Tests 08/07/21 15:30 08/07/21 17:45 08/08/21 02:29 A/P: Assessment: Cardiac arrest and subsequent cardiogenic shock due to acute anterolat OR - card cath of 08/07/21: mid-vessel occlusion of LAD (treated with primary angioplasty and stenting with SkyPoint 2.5x33 stent), 60-70% prox stenosis of RCA, LVEDP 39 mmHg, LVEF 25%, ant-lat and apical hypokinesis to akinesis - echo on 08/08/21: LVEF 20%, nathen-apical and nathen-lateral hypokinesis to akinesis Low urine output secondary to cardiogenic shock Plan: * Add dobutamine to improve cardiac output * Try to taper off Levophed * Treat with DAPT, beta-casandra, OSMEL-inhib/Entresto, and spironolactone, if bp allows * Lower iv fluid rate * iv furosemide today * Replenish K * Monitor labs * Prognosis guarded * Appreciated assistance by Juan Carlos and JACKELYN Souza MD FACP FAC CCDS Aug 08, 2021 08:59
[2021-08-08] MEDS ORDERED: KCL 20 MEQ TAB (K-DUR) PO ONE (09:00)
[2021-08-08] MEDS ORDERED: FUROSEMIDE 40 MG/4 ML INJ (LASIX) IVP ONE (09:00)
[2021-08-08] MEDS: DOBUTamine DRIP 250 ML IV SCH (09:20)
--- NOTE | 2021-08-08 09:56 | Diagnostic Imaging Report ---
Indication: Unresponsive. Time of Exam: 9:39 AM Correlation is made with prior chest one day earlier. ET tube has tip just above the selena. NG tube passes into stomach. Right upper extremity PICC line has tip overlying the SVC right atrial junction. Pacers overlie the left hemithorax. There is some mild right perihilar infiltrate. There may be some infiltrate in the left perihilar region as well however this does appear to be improved since yesterday. No effusion or pneumothorax is seen. IMPRESSION: Slight improved aeration to the perihilar regions bilaterally when compared to examination one day earlier. Dictated by: Dictated on workstation # [id number]
--- NOTE | 2021-08-08 10:55 | Tele-ICU Progress Note ---
Subjective Date Seen by a Provider: Aug 08, 2021 Time Seen by a Provider: 10:55 Subjective/Events-last exam (Tele-ICU Physician , Progress Note ) Available chart/ vitals / labs / Images reviewed Video assessment done using teleICU camera, rest of exam as per RN Discussed with RN , EXAM PER RN Events overnight : Afebrile - on ARCTIC SUN FiO2 - 25 I/O = Drips: dobutamin Pressors:levo , hemodynamically stable Discussed with RN. Sedation gtt: ( RASS ) precedex 0.3 , fentanyl 50 VENT SETTINGS and ABG reviewed Not candidate for SBT today REVIEWED Cardiovascular Stability / Sedation Score / FI02/PEEP / ABG / CXR Consultants: cardio Hospital course: 08/07 - OOH arrest , cathlab - stent to LAD 08/08 - added dobutamin , EF 20%, fio2 25 % A/P ACUTE STEMI - s/p photo lab specialist - mid-vessel occlusion of LAD (treated with stenting ) 60-70% prox stenosis of RCA - LVEF 2o% - as per cards Cardiogenic shock - on dobutamine - as per cards s/p arrest OOH - ? myoclonus observed - Tx empirically with zeferino , [facility] ordered - normothermia protocl - to keep T 36 C Acute resp failure, post arrest - AC 450 22 - +5 25% Encephalopaty post arrest - CTH 08/07 - no acute finding -- normothermia protocl - to keep T 36 C x24 h , will take arctic sun off and follow - awake , figting vent , NOT DOLLOW COMMANDS 08/08 on sedation vacation Leukocytosis - ? reactive , UA neg , ? PNA - cefepime started empirically Hyperglycemia - ISS Elev ddimer - as per echo findings mentioned in cardiology note - ( no offical report ) no findings rising suspicions for large PE Lines : RIGHT PICC 08/07 (Central Line Necessity Reviewed) Bronson: 08/07 OG: + Nutrition: to start 08/08 Analgesia: Anxiety/ delirium VTE Prophylaxis: hank 40 Stress Ulcer Prophylaxis: ppi Plans in collaboration with bedside consultants and IM MDs. Discussed with RN to reach out if any questions or concerns A total of 32 minutes of critical care time was devoted to this patient today, required to treat and/or prevent further deterioration of critical care condition ( as above Sepsis Event Evaluation Height, Weight, BMI Height: 5'0" Weight: 150lbs. oz. 68.491648sk; 29.83 BMI Method:Stated Focused Exam Lactate Level 08/08/21 02:29: Lactic Acid Level 4.01*H 08/08/21 05:10: Lactic Acid Level 2.74*H 08/08/21 07:40: Lactic Acid Level 1.54 Lactic Acid Level Laboratory Tests Test 08/08/21 07:40 Lactic Acid Level 1.54 MMOL/L (0.50-2.00) Exam Exam Patient acknowledged, consented, and participated in this virtual visit which was conducted using real time audio/video Vital Signs Date Time Temp Pulse Resp B/P (MAP) Pulse Ox O2 Delivery O2 Flow Rate FiO2 08/08/21 10:00 63 22 118/86 100 Mechanical Ventilator 25.00 08/08/21 09:20 112/82 08/08/21 09:00 61 21 102/73 100 Mechanical Ventilator 25.00 08/08/21 08:00 64 22 100 25 08/08/21 08:00 67 22 90/60 100 Mechanical Ventilator 25.00 08/08/21 08:00 99 Mechanical Ventilator 25 08/08/21 07:57 21 100 Mechanical Ventilator 25.00 08/08/21 07:44 36.0 08/08/21 07:00 36.0 08/08/21 07:00 67 08/08/21 07:00 69 21 108/78 100 Mechanical Ventilator 30.00 08/08/21 06:59 36.1 08/08/21 06:00 69 22 106/74 100 Mechanical Ventilator 30.00 08/08/21 05:00 64 22 112/84 100 Mechanical Ventilator 35.00 08/08/21 04:01 34.1 08/08/21 04:00 100 Mechanical Ventilator 35 08/08/21 04:00 33.3 58 22 121/91 100 08/08/21 04:00 59 22 121/91 100 Mechanical Ventilator 35.00 08/08/21 03:25 57 22 127/95 100 Mechanical Ventilator 35.00 08/08/21 03:18 63 119/72 08/08/21 03:15 57 22 119/72 100 Mechanical Ventilator 40.00 08/08/21 02:32 59 22 100 35 08/08/21 02:00 57 22 129/97 100 Mechanical Ventilator 40.00 08/08/21 01:02 66 22 112/87 Mechanical Ventilator 40.00 08/08/21 01:00 68 08/08/21 00:30 72 22 125/90 94 Mechanical Ventilator 40.00 08/08/21 00:27 34.7 Mechanical Ventilator 40.00 08/08/21 00:26 35.5 08/08/21 00:00 Mechanical Ventilator 40 08/07/21 23:35 73 22 112/86 95 Mechanical Ventilator 35.00 08/07/21 22:12 81 23 96 35 08/07/21 22:00 82 22 123/69 100 Mechanical Ventilator 35.00 08/07/21 22:00 Mechanical Ventilator 35.00 08/07/21 21:05 85 22 125/66 99 Mechanical Ventilator 50.00 08/07/21 20:27 Mechanical Ventilator 50.00 08/07/21 20:00 97 22 109/60 100 Mechanical Ventilator 50.00 08/07/21 19:59 90/51 08/07/21 19:52 95 95/42 08/07/21 19:30 38.2 08/07/21 19:21 94/60 08/07/21 19:00 114 08/07/21 19:00 111 22 93/74 100 Mechanical Ventilator 50.00 08/07/21 18:58 106 22 100 50 08/07/21 18:37 38.3 08/07/21 18:00 123 7 130/97 100 Mechanical Ventilator 99/69 08/07/21 17:37 38.4 08/07/21 17:00 128 15 137/92 99 Mechanical Ventilator 08/07/21 16:00 37.9 08/07/21 15:30 36.7 08/07/21 15:15 Mechanical Ventilator 08/07/21 15:00 130 107/72 08/07/21 15:00 115 27 133/74 99 Mechanical Ventilator 08/07/21 14:32 108 30 100 100 08/07/21 14:30 36.0 08/07/21 14:30 110 9 134/67 100 Mechanical Ventilator 08/07/21 14:27 113 08/07/21 12:54 95 14 99/67 100 Mechanical Ventilator 08/07/21 12:37 98 24 100 100 08/07/21 12:06 36.6 0 0 0/0 (0) 0 I & O 08/08/21 07:00 Intake Total 600 ml Output Total 2320 ml Balance -1720 ml Height & Weight Height: 5'0" Weight: 150lbs. oz. 68.891945hv; 29.83 BMI Method:Stated General Appearance: WD/WN, Severe Distress HEENT: PERRL/EOMI (Postcode they were reactive, 3 mm bilateral, symmetric), Pharynx Normal, Moist Mucous Membranes Neck: Full Range of Motion, Normal Inspection Respiratory: Lungs Clear, Normal Breath Sounds, Respiratory Distress (Agonal gasping) Cardiovascular: No Edema; No Normal Peripheral Pulses; Other (Pulseless V. Fibrillation on the monitor after arrival) Capillary Refill: Less Than 3 Seconds Extremity: Slow Capillary Refill, Other (Mottled extremities acral cyanosis and and perioral cyanosis) Neurologic/Psychiatric: Other (Obtunded, pulseless GCS 3 on arrival) Skin: Cyanosis, Mottled Lymphatic: No Adenopathy Results Lab Laboratory Tests 08/07/21 15:30 08/07/21 17:45 08/08/21 02:29 Assessment/Plan Assessment/Plan ` DANE DYER MD Aug 08, 2021 10:55
[2021-08-08] MEDS: ENOXAPARIN 40 MG/0.4 ML (LOVENOX) SYR SC SCH (11:33)
--- NOTE | 2021-08-08 12:37 | Progress Note - Hospitalist ---
MARIANGEL PENA MED STUDENT 08/08/21 1237: Subjective HPI/CC On Admission Date Seen by Provider: Aug 08, 2021 Time Seen by Provider: 09:45 CC: STEMI HPI: This is Miss Terry, a 41 y, with an unknown past medical history, who presented to the ED by POV and was found to be in cardiac arrest. She had gone to [facility] for worsening shortness of breath and was told to go to the emergency room. Her primary care physician is unknown at this time. During the car ride to the ED, she suffered a cardiac arrest and was unresponsive upon presentation to the ED. A code was ran for her in the ED, during which she was intubated. She was in ventricular fibrillation and required 6 defibrillations. They were able to obtain a pulse and blood pressure. Pt still in shock requiring pressor therapy. EKG was evident for anterolateral ST elevation. She was sent for emergency cardiac catheterization by Dr. Rojas. A stent was placed in her LAD. LVEF was 25%. She was then transferred to the ICU, where she is actively intubated and sedated. Subjective/Events-last exam Miss Terry is still intubated and sedated today. No family members are present. Review of Systems Unable to obtain due to clinical condition Focused Exam Lactate Level 08/08/21 02:29: Lactic Acid Level 4.01*H 08/08/21 05:10: Lactic Acid Level 2.74*H 08/08/21 07:40: Lactic Acid Level 1.54 Objective Exam Vital Signs Vital Signs Date Time Temp Pulse Resp B/P (MAP) Pulse Ox O2 Delivery O2 Flow Rate FiO2 08/08/21 11:34 101/70 08/08/21 11:00 68 21 100 Mechanical Ventilator 25.00 08/08/21 08:00 25 08/08/21 07:44 36.0 General Appearance: WD/WN, Mild Distress HEENT: No Scleral Icterus (L), No Scleral Icterus (R) Neck: Supple; No Lymphadenopathy (L), No Lymphadenopathy (R) Respiratory: Lungs Clear, Other (on ventilator ) Cardiovascular: Regular Rate, Rhythm, No Edema, No Murmur Gastrointestinal: Soft, Abnormal Bowel Sounds (hypoactive ) Extremity: Normal Inspection, No Pedal Edema, Slow Capillary Refill (6 second cap refill ) Neurologic/Psychiatric: Other (Pt sedated and on ventilator, absent corneal reflex, intact pupillary reflex ) Skin: Normal Color, Cool Lymphatic: No Adenopathy Results/Procedures Lab Laboratory Tests 08/07/21 15:30 08/07/21 17:45 08/08/21 02:29 Patient resulted labs reviewed. Assessment/Plan Assessment and Plan Assess & Plan/Chief Complaint Assessment - Cardiac arrest - Cardiogenic shock - S/P LAD stent placement - lactic acidosis - leukocytosis - transaminitis - hypokalemia - hypocalcemia - elevated troponins Plan - Ventilator: 450/22/5/25% - AB.36/24/80 - Continue per Cardiology plan - appreciate eICU - intubated and sedated on ventilator - IVF - IV cefepime - Norepinephrine gtt - propofol gtt - Keppra - Supportive care - electrolyte replacement - very poor prognosis KATHIA OCHOA DO 08/08/21 2016: Supervisory-Addendum Brief Verification & Attestation Participated in pt care: history, MDM, physical Personally performed: exam, history, MDM, supervision of care Care discussed with: Medical Student Procedures: n/a Results interpretation: Verified all documentation Verification and Attestation of Medical Student E/M Service A medical student performed and documented this service in my presence. I reviewed and verified all information documented by the medical student and made modifications to such information, when appropriate. I personally performed the physical exam and medical decision making. Kathia Ochoa, Aug 08, 2021,20:30 MARIANGEL PENA MED STUDENT Aug 08, 2021 12:37 KATHIA OCHOA DO Aug 08, 2021 20:16
[2021-08-08] MEDS ORDERED: ACETAMINOPHEN 325 MG TABLET ONE (13:53)
[2021-08-08] MEDS: ACETAMINOPHEN 325 MG TABLET PO PRN (13:56)
[2021-08-08] MEDS ORDERED: KETOROLAC 30 MG/ML VIAL IVP NR (17:00)
[2021-08-08 18:22] VITALS: BP 97/71
[2021-08-08] MEDS: fentaNYL DRIP PRE-MIX 250 ML IV SCH ×2 (21:22→23:36)
[2021-08-08 21:31] VITALS: BP 105/74
[2021-08-08] MEDS: DexMEDEtomidine 250 ML DRIP 250 ML IV SCH (23:22)
[2021-08-09] MEDS: meTOprolol 5 MG/5 ML (LOPRESSOR) VIAL IV SCH ×2 (00:27→06:58)
[2021-08-09] MEDS: inSUlin ASPART (NovoLOG) 1 UNIT/0.01 ML (CHARGE PER UNIT) SC SCH ×5 (00:28→23:37)
[2021-08-09 02:23] VITALS: BP 104/75
[2021-08-09 04:50] LABS: BASOPHILS % (AUTO) 0 % (0-10); EOSINOPHILS % (AUTO) 0 % (0-10); HEMATOCRIT 30 % (35-52); HEMOGLOBIN 10.1 g/dL (11.5-16.0); LYMPHOCYTES # (AUTO) 1.3 10^3/uL (1.0-4.0); LYMPHOCYTES % (AUTO) 10 % (12-44); MEAN CORPUSCULAR HEMOGLOBIN 31 pg (25-34); MEAN CORPUSCULAR HGB CONC 33 g/dL (32-36); MEAN CORPUSCULAR VOLUME 93 fL (80-99); MEAN PLATELET VOLUME 9.6 fL (9.0-12.2); MONOCYTES # (AUTO) 0.4 10^3/uL (0.0-1.0); MONOCYTES % (AUTO) 3 % (0-12); NEUTROPHILS # (AUTO) 11.3 10^3/uL (1.8-7.8); NEUTROPHILS % (AUTO) 86 % (42-75); PLATELET COUNT 171 10^3/uL (130-400); WHITE BLOOD COUNT 13.2 10^3/uL (4.3-11.0)
[2021-08-09 05:05] LABS: CALCIUM 6.3 MG/DL (8.5-10.1)
[2021-08-09 05:09] LABS: PHOSPHORUS 1.4 MG/DL (2.3-4.7)
[2021-08-09 05:10] LABS: CREATININE SERUM 0.51 MG/DL (0.60-1.30)
[2021-08-09 05:12] LABS: MAGNESIUM 1.6 MG/DL (1.6-2.4)
[2021-08-09 05:30] LABS: ABG BASE EXCESS -11.9 MMOL/L (-2.5-2.5); ABG OXYGEN SATURATION 98 % (94-100); ABG PH 7.42 (7.37-7.43); ABG PO2 95 MMHG (79-93); ABG TCO2 12.4 MMOL/L (21.0-31.0)
[2021-08-09 05:32] LABS: ALLENS TEST YES-POS; INSPIRED O2 21%; PATIENT TEMP 37.6; VENTILATOR YES
[2021-08-09 05:34] LABS: ABG PCO2 19 MMHG (35-45)
[2021-08-09] MEDS: EPINEPHrine 1 MG INJECTION 4 MG in NS (IVPB) 246 ML IV SCH ×3 (05:35→20:43)
[2021-08-09] MEDS: KCL 20 MEQ TAB (K-DUR) PO SCH (06:14)
[2021-08-09] MEDS ORDERED: MAGNESIUM 1 GM/100 ML IVPB 200 ML IV ONE (06:24)
[2021-08-09] MEDS ORDERED: POTASSIUM CL 10MEQ/50ML IVPB 250 ML IV ONE (06:24)
[2021-08-09] MEDS: CEFEPIME INJECTION 1,000 MG in NS (IVPB) 50 ML IV SCH ×4 (06:26→23:42)
[2021-08-09] MEDS: MAGNESIUM 1 GM/100 ML IVPB 100 ML IV SCH ×3 (06:27→07:52)
[2021-08-09] MEDS: POTASSIUM CL 10MEQ/50ML IVPB 50 ML IV SCH ×5 (06:27→09:39)
[2021-08-09 06:57] VITALS: BP 93/66
[2021-08-09] MEDS: NS IV 1000 ML 1,000 ML IV SCH ×2 (07:00→21:13)
[2021-08-09 07:12] VITALS: BP 93/66
[2021-08-09 08:04] LABS: ABG BASE EXCESS -8.8 MMOL/L (-2.5-2.5); ABG OXYGEN SATURATION 97 % (94-100); ABG PCO2 29 MMHG (35-45); ABG PH 7.35 (7.37-7.43); ABG PO2 91 MMHG (79-93); ABG TCO2 16.5 MMOL/L (21.0-31.0)
[2021-08-09] MEDS: DOBUTamine DRIP 250 ML IV SCH (08:05)
[2021-08-09] MEDS: PANTOPRAZOLE 40 MG (PROTONIX) VIAL IV SCH (08:06)
[2021-08-09] MEDS: ENALAPRILAT 2.5 MG/2 ML (VASOTEC) VIAL IV SCH (08:06)
[2021-08-09 08:07] LABS: ALLENS TEST YES-POS
[2021-08-09 08:08] LABS: INSPIRED O2 21; PATIENT TEMP 37.5; VENTILATOR YES
--- NOTE | 2021-08-09 08:41 | Tele-ICU Progress Note ---
Subjective Date Seen by a Provider: Aug 09, 2021 Time Seen by a Provider: 08:36 Subjective/Events-last exam (Tele-ICU Physician , consultation) Available chart/ vitals / labs / Images reviewed H&P is from ER notes Patient's information available about PMH, Shx, Fhx allergy reviewed in EMR. ROS as per chart and RN report Subjective: Pt with no major events overnight. MAPs maintained > 70s. Successfully trialed on VLT and extubated this AM. Currently on RA. Video assessment done using teleICU camera, rest of exam as per RN Discussed with RN. Consultants: cardio Sepsis Event Evaluation Height, Weight, BMI Height: 5'0" Weight: 150lbs. oz. 68.167909rr; 29.83 BMI Method:Stated Focused Exam Lactate Level 08/08/21 02:29: Lactic Acid Level 4.01*H 08/08/21 05:10: Lactic Acid Level 2.74*H 08/08/21 07:40: Lactic Acid Level 1.54 Exam Exam Patient acknowledged, consented, and participated in this virtual visit which was conducted using real time audio/video Vital Signs Date Time Temp Pulse Resp B/P (MAP) Pulse Ox O2 Delivery O2 Flow Rate FiO2 08/09/21 08:05 90 112/73 08/09/21 08:00 37.6 08/09/21 07:59 90 08/09/21 07:12 116 17 100 21 08/09/21 06:57 116 17 100 21 08/09/21 06:55 117 22 90 08/09/21 06:00 37.6 87 21 95/68 100 Mechanical Ventilator 21.00 08/09/21 05:00 37.6 86 21 106/77 100 Mechanical Ventilator 21.00 08/09/21 04:00 37.5 86 21 107/77 100 Mechanical Ventilator 21.00 08/09/21 04:00 100 Mechanical Ventilator 21 08/09/21 03:00 37.4 85 21 107/75 100 Mechanical Ventilator 21.00 08/09/21 02:23 87 22 100 21 08/09/21 02:00 37.4 95 17 104/75 100 Mechanical Ventilator 21.00 08/09/21 01:00 85 08/09/21 01:00 37.3 85 21 101/75 100 Mechanical Ventilator 21.00 08/09/21 00:00 100 Mechanical Ventilator 21 08/09/21 00:00 37.4 85 22 105/77 100 Mechanical Ventilator 21.00 08/08/21 23:22 85 98/72 08/08/21 23:00 37.5 86 21 98/72 100 Mechanical Ventilator 21.00 08/08/21 22:00 37.6 90 22 102/73 100 Mechanical Ventilator 21.00 08/08/21 21:31 87 22 100 21 08/08/21 21:00 37.8 89 22 104/77 100 Mechanical Ventilator 21.00 08/08/21 20:00 38.1 08/08/21 20:00 100 Mechanical Ventilator 21 08/08/21 20:00 37.9 98 22 103/77 100 Mechanical Ventilator 21.00 08/08/21 19:00 92 08/08/21 19:00 38.1 92 21 98/74 100 Mechanical Ventilator 21.00 08/08/21 19:00 Mechanical Ventilator 21.00 08/08/21 18:22 108 27 100 21 08/08/21 18:00 92 21 98/72 100 Mechanical Ventilator 21.00 08/08/21 17:00 92 21 95/70 100 Mechanical Ventilator 21.00 08/08/21 16:00 84 21 109/78 100 Mechanical Ventilator 21.00 08/08/21 16:00 99 Mechanical Ventilator 25 08/08/21 15:50 37.4 08/08/21 15:00 82 21 112/78 100 Mechanical Ventilator 21.00 08/08/21 14:00 80 21 114/78 100 Mechanical Ventilator 25.00 08/08/21 13:00 74 21 112/75 100 Mechanical Ventilator 25.00 08/08/21 13:00 96 08/08/21 12:00 72 21 108/77 100 Mechanical Ventilator 25.00 08/08/21 12:00 99 Mechanical Ventilator 25 08/08/21 11:34 101/70 08/08/21 11:00 68 21 116/83 100 Mechanical Ventilator 25.00 08/08/21 10:00 63 22 118/86 100 Mechanical Ventilator 25.00 08/08/21 09:20 112/82 08/08/21 09:00 61 21 102/73 100 Mechanical Ventilator 25.00 I & O 08/09/21 06:59 Intake Total 1750 ml Output Total 3125 ml Balance -1375 ml Height & Weight Height: 5'0" Weight: 150lbs. oz. 68.882929ep; 29.83 BMI Method:Stated General Appearance: Chronically ill, Other (Sedated and intubated) HEENT: No Scleral Icterus (L), No Scleral Icterus (R) Neck: Supple; No Lymphadenopathy (L), No Lymphadenopathy (R) Respiratory: Lungs Clear, Normal Breath Sounds Cardiovascular: Regular Rate, Rhythm Capillary Refill: Less Than 3 Seconds Extremity: Normal Inspection, No Pedal Edema, Slow Capillary Refill (6 second cap refill ) Neurologic/Psychiatric: Other (Pt sedated and on ventilator, absent corneal reflex, intact pupillary reflex ) Skin: Normal Color, Cool Lymphatic: No Adenopathy Results Lab Laboratory Tests 08/07/21 15:30 08/07/21 17:45 08/08/21 02:29 08/09/21 04:44 Assessment/Plan Assessment/Plan 41 y/o F s/p Cardiac arrest and subsequent cardiogenic shock due to acute anterolat [place] Cardiogenic shock: Resolved, Currently on Dobutamine 2.5. Ok to d/c per cardiology STEMI -s/p cardiac cath 08/07: (per Cards) mid-vessel occlusion of LAD (treated with primary angioplasty and stenting with SkyPoint 2.5x33 stent), 60-70% prox stenosis of RCA, LVEDP 39 mmHg, LVEF 25%, ant-lat and apical hypokinesis to akinesis -TTE: EF 20%, nathen-apical and nathen-lateral hypokinesis to akinesis -ok to d/c dobutamine today -Cont DAPT, beta-casandra, OSMEL-inhib/Entresto, and spironolactone, titrate doses as bp allows Acute hypoxic Respiratory failure 2/2 cardiac arrest Successful trialed on SBT and extubated today Altered mental status -s/p arrest OOH -Currently off all sedation. A&OX2. Cont to monitor Lines : (Central Line Necessity Reviewed) Bronson: 08/07 OG: Nutrition: Analgesia: Anxiety/ delirium VTE Prophylaxis: Stress Ulcer Prophylaxis: ppi Plans in collaboration with bedside consultants and IM MDs. Discussed with RN to reach out if any questions or concerns A total of 35 minutes of critical care time was devoted to this patient today, required to treat and/or prevent further deterioration of critical care condition ( as above MARIIA ESTEVEZ MD Aug 09, 2021 08:41
--- NOTE | 2021-08-09 09:05 | Progress Note - Cardiology ---
Cardiology SOAP Progress Note Subjective: Extubated Objective: I&O/Vital Signs 08/10/21 08/10/21 08/10/21 08/10/21 03:30 03:30 04:00 04:56 Temp 36.8 Pulse 118 Resp 30 B/P (MAP) 98/82 Pulse Ox 90 91 O2 Delivery Vapotherm Vapotherm Vapotherm O2 Flow Rate 40.00 40.00 40.00 30.00 100.00 100.00 80.00 FiO2 100 08/10/21 08/10/21 08/10/21 08/10/21 05:00 05:09 06:00 07:00 Pulse 120 120 111 Resp 17 29 B/P (MAP) 118/78 109/91 Pulse Ox 91 92 O2 Delivery Vapotherm O2 Flow Rate 30.00 30.00 30.00 80.00 90.00 90.00 08/10/21 08/10/21 08/10/21 08/10/21 07:00 07:40 08:00 08:00 Temp 36.5 Pulse 122 Resp 26 B/P (MAP) 120/80 Pulse Ox 93 91 90 O2 Delivery Vapotherm Vapotherm Vapotherm O2 Flow Rate 30.00 30.00 30.00 90.00 FiO2 90 90 08/10/21 08/10/21 08/10/21 08/10/21 08:00 09:00 09:00 09:06 Pulse 117 111 106 Resp 25 37 34 B/P (MAP) 107/82 115/69 Pulse Ox 93 91 94 96 O2 Delivery Vapotherm NIV Bilevel NIV Bilevel O2 Flow Rate 30.00 60.00 60.00 60.00 90.00 08/10/21 08/10/21 08/10/21 08/10/21 10:00 11:00 11:02 12:00 Temp 36.0 Pulse 105 122 112 Resp 21 36 31 B/P (MAP) 111/61 105/71 Pulse Ox 95 98 98 O2 Delivery NIV Bilevel NIV Bilevel O2 Flow Rate 60.00 60.00 60.00 08/10/21 08/10/21 08/10/21 08/10/21 12:00 12:21 12:58 13:00 Pulse 116 108 113 Resp 26 16 B/P (MAP) 109/84 100/75 Pulse Ox 94 100 99 O2 Delivery NIV Bilevel NIV Bilevel NIV Bilevel O2 Flow Rate 60.00 60.00 FiO2 60 08/10/21 14:00 Pulse 104 Resp 32 B/P (MAP) 100/63 Pulse Ox 100 O2 Delivery NIV Bilevel O2 Flow Rate 60.00 08/09/21 23:59 Intake Total 375 ml Output Total 565 ml Balance -190 ml Weight (Pounds): 150 Weight (Calculated Kilograms): 68.702497 Constitutional: well-developed, well-nourished, other (Oriented to self and place; asking questions as to what happened) Respiratory: No accessory muscle use; other (on mech vent) Cardiovascular: regular rate-rhythm, S1 and S2, systolic murmur (soft LIS at card basee) Gastrointestional: soft, audible bowel sounds Extremities: No clubbing, No cyanosis, No significant edema Neurologic/Psychiatric: other (awake, alert, appropriate; moving all extremities) Skin: No rash, No ulcerations Results/Procedures: Labs Laboratory Tests 08/09/21 17:30: Glucometer 97 08/09/21 23:29: Glucometer 101 08/10/21 02:23: Blood Gas Puncture Site LEFT RADIAL, Blood Gas Patient Temperature 37.4, Arterial Blood pH 7.35L, Arterial Blood Partial Pressure CO2 26L, Arterial Blood Partial Pressure O2 61L, Arterial Blood HCO3 14*L, Arterial Blood Total CO2 14.7L, Arterial Blood Oxygen Saturation 92L, Arterial Blood Base Excess -10.6L, Alo Test POSITIVE, Blood Gas Ventilator Setting NO, Blood Gas Inspired Oxygen 80% 08/10/21 02:30: White Blood Count 21.3H, Red Blood Count 3.49L, Hemoglobin 10.9L, Hematocrit 33L , Mean Corpuscular Volume 94, Mean Corpuscular Hemoglobin 31, Mean Corpuscular Hemoglobin Concent 33, Red Cell Distribution Width 12.3, Platelet Count 245, Mean Platelet Volume 9.9, Immature Granulocyte % (Auto) 1, Neutrophils (%) (Auto) 93H, Lymphocytes (%) (Auto) 3L, Monocytes (%) (Auto) 2, Eosinophils (%) (Auto) 0, Basophils (%) (Auto) 0, Neutrophils # (Auto) 19.9H, Lymphocytes # (Auto) 0.7L, Monocytes # (Auto) 0.5, Eosinophils # (Auto) 0.0, Basophils # (Auto) 0.0, Immature Granulocyte # (Auto) 0.2H, Sodium Level 134L, Potassium Level 3.5L, Chloride Level 106, Carbon Dioxide Level 12L, Anion Gap 16H, Blood Urea Nitrogen 11, Creatinine 0.55L, Estimat Glomerular Filtration Rate 120, BUN/Creatinine Ratio 20, Glucose Level 126H, Calcium Level 7.0L, Phosphorus Level 1.3L, Magnesium Level 2.0 08/10/21 03:55: Lactic Acid Level 1.66 08/10/21 13:45: Sodium Level 138, Potassium Level 2.7L, Chloride Level 101, Carbon Dioxide Level 21, Anion Gap 16H, Blood Urea Nitrogen 9, Creatinine 0.59L, Estimat Glomerular Filtration Rate 117, BUN/Creatinine Ratio 15, Glucose Level 136H, Calcium Level 7.2L Microbiology 08/07/21 Urine Culture - Final, Complete NO GROWTH 08/07/21 Blood Culture - Preliminary, Resulted No growth 08/07/21 Gram Stain - Final, Complete 08/07/21 Sputum Culture - Final, Complete Usual upper respiratory kimberly A/P: Assessment: Cardiac arrest and subsequent cardiogenic shock due to acute anterolat [place] - card cath of 08/07/21: mid-vessel occlusion of LAD (treated with primary angioplasty and stenting with SkyPoint 2.5x33 stent), 60-70% prox stenosis of RCA, LVEDP 39 mmHg, LVEF 25%, ant-lat and apical hypokinesis to akinesis - echo on 08/08/21: LVEF 20%, nathen-apical and nathen-lateral hypokinesis to akinesis Urinary output improved Extubated Plan: * D/C dobutamine today * Levophed is off * Treat with DAPT, beta-casandra, OSMEL-inhib/Entresto, and spironolactone, titrate doses as bp allows * D/C IVF once taking in adequate oral intake * Lasix as needed * Replenish K * Monitor labs * Prognosis guarded * Appreciated assistance by Juan Carlos and KIRT Morris Aug 09, 2021 09:05
[2021-08-09] MEDS: ENALAPRIL 2.5 MG (VASOTEC) TAB PO SCH ×2 (09:37→20:31)
[2021-08-09] MEDS: meTOprolol TARTRATE 25 MG (LOPRESSOR) TABLET PO SCH ×3 (09:37→20:31)
[2021-08-09] MEDS: CLOPIDOGREL 75 MG (PLAVIX) TABLET PO SCH (09:38)
[2021-08-09] MEDS: ASPIRIN 81 MG CHEW (CHILDREN'S ASA) PO SCH (09:38)
[2021-08-09] MEDS: SPIRONOLACTONE 25 MG (ALDACTONE) TAB PO SCH (09:41)
[2021-08-09] MEDS: ENOXAPARIN 40 MG/0.4 ML (LOVENOX) SYR SC SCH (11:23)
--- NOTE | 2021-08-09 12:59 | Progress Note - Cardiology ---
Cardiology SOAP Progress Note Subjective: Extubated and responsive, but does not answer questions. Does appear oriented to place and person Objective: I&O/Vital Signs 08/09/21 08/09/21 08/09/21 08/09/21 01:00 01:00 02:00 02:23 Temp 37.3 37.4 Pulse 85 85 95 87 Resp B/P (MAP) 101/75 104/75 Pulse Ox 100 100 100 O2 Delivery Mechanical Ventilator Mechanical Ventilator O2 Flow Rate 21.00 21.00 FiO2 21 08/09/21 08/09/21 08/09/21 08/09/21 03:00 04:00 04:00 05:00 Temp 37.4 37.5 37.6 Pulse 85 86 86 Resp B/P (MAP) 107/75 107/77 106/77 Pulse Ox 100 100 100 100 O2 Delivery Mechanical Ventilator Mechanical Ventilator Mechanical Ventilator Mechanical Ventilator O2 Flow Rate 21.00 21.00 21.00 FiO2 21 08/09/21 08/09/21 08/09/21 08/09/21 06:00 06:55 06:57 07:00 Temp 37.6 37.5 Pulse 87 117 116 103 Resp B/P (MAP) 95/68 113/76 Pulse Ox 100 90 100 100 O2 Delivery Mechanical Ventilator Mechanical Ventilator O2 Flow Rate 21.00 21.00 FiO2 21 08/09/21 08/09/21 08/09/21 08/09/21 07:12 07:59 08:00 08:00 Temp 37.6 Pulse 116 90 Resp 17 Pulse Ox 100 100 O2 Delivery Mechanical Ventilator FiO2 21 08/09/21 08/09/21 08/09/21 08/09/21 08:00 08:05 09:00 10:00 Temp 37.5 37.2 37.1 Pulse 116 90 90 79 Resp B/P (MAP) 112/73 112/73 85/52 98/69 Pulse Ox 100 100 100 O2 Delivery Mechanical Ventilator Room Air Room Air O2 Flow Rate 21.00 08/09/21 08/09/21 11:00 11:58 Temp 36.4 Pulse 102 Resp 21 B/P (MAP) 100/61 Pulse Ox 97 100 O2 Delivery Room Air Room Air FiO2 21 08/09/21 00:00 Intake Total 1750 ml Output Total 2350 ml Balance -600 ml Weight (Pounds): 150 Weight (Calculated Kilograms): 68.260195 Constitutional: well-developed, well-nourished, other (Oriented to self and place; asking questions as to what happened) Respiratory: No accessory muscle use; other (on mech vent) Cardiovascular: regular rate-rhythm, S1 and S2, systolic murmur (soft LIS at card basee) Gastrointestional: soft, audible bowel sounds Extremities: No clubbing, No cyanosis, No significant edema Neurologic/Psychiatric: other (awake, alert, appropriate; moving all extremities) Skin: No rash, No ulcerations Results/Procedures: Labs Laboratory Tests 08/08/21 17:46: Glucometer 67L 08/08/21 23:55: Glucometer 96 08/09/21 04:44: White Blood Count 13.2H, Red Blood Count 3.26L, Hemoglobin 10.1L, Hematocrit 30L , Mean Corpuscular Volume 93, Mean Corpuscular Hemoglobin 31, Mean Corpuscular Hemoglobin Concent 33, Red Cell Distribution Width 12.1, Platelet Count 171, Mean Platelet Volume 9.6, Immature Granulocyte % (Auto) 1, Neutrophils (%) (Auto) 86H, Lymphocytes (%) (Auto) 10L, Monocytes (%) (Auto) 3, Eosinophils (%) (Auto) 0, Basophils (%) (Auto) 0, Neutrophils # (Auto) 11.3H, Lymphocytes # (Auto) 1.3, Monocytes # (Auto) 0.4, Eosinophils # (Auto) 0.0, Basophils # (Auto) 0.0, Immature Granulocyte # (Auto) 0.1, Sodium Level 137, Potassium Level 3.0L, Chloride Level 112H, Carbon Dioxide Level 10L, Anion Gap 15H, Blood Urea Nitrogen 8, Creatinine 0.51L, Estimat Glomerular Filtration Rate 122, BUN/Creatinine Ratio 16, Glucose Level 140H, Calcium Level 6.3L, Phosphorus Level 1.4L, Magnesium Level 1.6 08/09/21 05:12: Blood Gas Puncture Site L RAD, Blood Gas Patient Temperature 37.6, Arterial Blood pH 7.42, Arterial Blood Partial Pressure CO2 19*L, Arterial Blood Partial Pressure O2 95H, Arterial Blood HCO3 12*L, Arterial Blood Total CO2 12.4L, Arterial Blood Oxygen Saturation 98, Arterial Blood Base Excess -11.9L, Alo Test YES-POS, Blood Gas Ventilator Setting YES, Blood Gas Inspired Oxygen 21% 08/09/21 07:51: Blood Gas Puncture Site RT RADIAL, Blood Gas Patient Temperature 37.5, Arterial Blood pH 7.35L, Arterial Blood Partial Pressure CO2 29L, Arterial Blood Partial Pressure O2 91, Arterial Blood HCO3 16*L, Arterial Blood Total CO2 16.5L, Arterial Blood Oxygen Saturation 97, Arterial Blood Base Excess -8.8L, Alo Test YES-POS, Blood Gas Ventilator Setting YES, Blood Gas Inspired Oxygen 21 Microbiology 08/07/21 Blood Culture - Preliminary, Resulted No growth 08/07/21 Gram Stain - Final, Complete 08/07/21 Sputum Culture - Final, Complete Usual upper respiratory kimberly Laboratory Tests 08/07/21 15:30 08/07/21 17:45 08/08/21 02:29 08/09/21 04:44 A/P: Assessment: Cardiac arrest and subsequent cardiogenic shock due to acute anterolat [place] - card cath of 08/07/21: mid-vessel occlusion of LAD (treated with primary angioplasty and stenting with SkyPoint 2.5x33 stent), 60-70% prox stenosis of RCA, LVEDP 39 mmHg, LVEF 25%, ant-lat and apical hypokinesis to akinesis - echo on 08/08/21: LVEF 20%, nathen-apical and nathen-lateral hypokinesis to akinesis Ac resp failure, now resolved Plan: * D/C dobutamine today * Levophed is off * Treat with DAPT, beta-casandra, OSMLE-inhib/Entresto, and spironolactone, titrate doses as bp allows * D/C IVF once taking in adequate oral intake * Lasix as needed * Replenish K * Monitor labs * Prognosis guarded * Appreciated assistance by eICU and JACKELYN Souza MD FACP FAC CCDS Aug 09, 2021 12:59
--- NOTE | 2021-08-09 13:22 | Progress Note - Hospitalist ---
MARIANGEL PENA MED STUDENT 08/09/21 1322: Subjective HPI/CC On Admission Date Seen by Provider: Aug 09, 2021 Time Seen by Provider: 09:30 CC: Cardiac arrest HPI: This is a 41 yr old WF with a past medical history of alcohol use in addition to early family history of premature CAD and sudden cardiac . She presents to the ICU bed 9 after cardiac cath emergently when she presented to the ER by private vehicle. She was found to have ventricular tachycardia status post multiple shocks and now remains on aggressive pressure therapy. Temperature was low overnight and maintained on the ventilator. We will check her neurological status when she is able to be weaned off the ventilator. Overall poor prognosis given her ejection fraction of 15%. Subjective/Events-last exam Miss Terry was able to be extubated yesterday. She has been doing well since. She states that she is very tired and that her throat hurts. Review of Systems General: Fatigue HEENT: No Head Aches, No Visual Changes Cardiovascular: No: Chest Pain, Palpitations Gastrointestinal: No: Nausea, Vomiting Neurological: Weakness Focused Exam Lactate Level 08/08/21 02:29: Lactic Acid Level 4.01*H 08/08/21 05:10: Lactic Acid Level 2.74*H 08/08/21 07:40: Lactic Acid Level 1.54 Objective Exam Vital Signs Vital Signs Date Time Temp Pulse Resp B/P (MAP) Pulse Ox O2 Delivery O2 Flow Rate FiO2 08/09/21 11:58 100 Room Air 21 08/09/21 11:00 36.4 102 21 100/61 08/09/21 08:00 21.00 Capillary Refill : Less Than 3 Seconds General Appearance: No Apparent Distress, WD/WN HEENT: No Scleral Icterus (L), No Scleral Icterus (R) Neck: Non Tender; No Lymphadenopathy (L), No Lymphadenopathy (R) Respiratory: Chest Non Tender, Lungs Clear, Normal Breath Sounds Cardiovascular: Regular Rate, Rhythm, No Edema, No Murmur Gastrointestinal: Normal Bowel Sounds, Non Tender, Soft Extremity: Normal Capillary Refill Neurologic/Psychiatric: Oriented x3, Depressed Affect, Other (Very fatigued ) Skin: Normal Color, Warm/Dry Lymphatic: No Adenopathy Results/Procedures Lab Laboratory Tests 08/09/21 04:44 Patient resulted labs reviewed. Assessment/Plan Assessment and Plan Assess & Plan/Chief Complaint Assessment - Cardiac arrest - Cardiogenic shock - S/P LAD stent placement - lactic acidosis - leukocytosis - transaminitis - hypokalemia - hypocalcemia - hypophosphatemia - elevated troponins Plan - Continue per Cardiology plan - Extubated - AB.35 - Potential restart of Levophed gtt - Blood cultures are negative - Sputum culture grew normal respiratory kimberly - appreciate eICU - IVF - IV cefepime - Supportive care - electrolyte replacement as indicated KATHIA BERNARD DO 08/10/21 0546: Subjective Subjective/Events-last exam Patient extubated and neurologically intact Blood pressure still an issue off Levophed since last night Patient is groggy but neurologically intact Tolerating ice chips Review of Systems General: Fatigue, Malaise Objective Exam General Appearance: No Apparent Distress, WD/WN, Chronically ill Respiratory: Lungs Clear, Normal Breath Sounds Cardiovascular: Regular Rate, Rhythm Neurologic/Psychiatric: Alert, Oriented x3, No Motor/Sensory Deficits, Normal Mood/Affect Assessment/Plan Assessment and Plan Assess & Plan/Chief Complaint Supportive care Monitor neuro status Supervisory-Addendum Brief Verification & Attestation Participated in pt care: history, MDM, physical Personally performed: exam, history, MDM, supervision of care Care discussed with: Medical Student Procedures: n/a Results interpretation: Verified all documentation Verification and Attestation of Medical Student E/M Service A medical student performed and documented this service in my presence. I reviewed and verified all information documented by the medical student and made modifications to such information, when appropriate. I personally performed the physical exam and medical decision making. Kathia Bernard, Aug 10, 2021,05:45 MARIANGEL PENA MED STUDENT Aug 09, 2021 13:22 KATHIA BERNARD DO Aug 10, 2021 05:46
[2021-08-09] MEDS: LIDOCAINE DRIP 500 ML IV SCH (14:52)
[2021-08-09] MEDS: morphine INJ 4 MG/ML 1 ML (VIAL/SYRINGE) IVP PRN ×2 (17:17→20:31)
[2021-08-09] MEDS ORDERED: RT-ALBUTEROL/IPRATROPIUM 3 ML (DUONEB) VIAL ONE (19:57)
[2021-08-09] MEDS: RT-ALBUTEROL/IPRATROPIUM 3 ML (DUONEB) VIAL INH PRN (20:02)
[2021-08-09] MEDS: NOREPINEPHRINE 8 MG/250 ML 250 ML IV SCH (20:43)
[2021-08-09] MEDS ORDERED: guaiFENesin/CODEINE (ROBITUSSIN AC) 10ML UDC ONE (20:55)
[2021-08-09] MEDS ORDERED: guaiFENesin/CODEINE (ROBITUSSIN AC) 10ML UDC PO PRN (21:00)
[2021-08-09] MEDS ORDERED: DexMEDEtomidine 250 ML DRIP 250 ML IV ONE (21:44)
[2021-08-09] MEDS ORDERED: DexMEDEtomidine 250 ML DRIP 250 ML IV SCH (21:45)
[2021-08-09 22:20] VITALS: BP 126/94
[2021-08-10] MEDS: RT-ALBUTEROL/IPRATROPIUM 3 ML (DUONEB) VIAL INH PRN ×4 (01:30→15:03)
[2021-08-10 02:30] LABS: ABG BASE EXCESS -10.6 MMOL/L (-2.5-2.5); ABG OXYGEN SATURATION 92 % (94-100); ABG PCO2 26 MMHG (35-45); ABG PH 7.35 (7.37-7.43); ABG PO2 61 MMHG (79-93); ABG TCO2 14.7 MMOL/L (21.0-31.0)
[2021-08-10 02:33] LABS: ALLENS TEST POSITIVE; INSPIRED O2 80%; PATIENT TEMP 37.4; VENTILATOR NO
[2021-08-10 02:38] LABS: BASOPHILS % (AUTO) 0 % (0-10); EOSINOPHILS % (AUTO) 0 % (0-10); HEMATOCRIT 33 % (35-52); HEMOGLOBIN 10.9 g/dL (11.5-16.0); LYMPHOCYTES # (AUTO) 0.7 10^3/uL (1.0-4.0); LYMPHOCYTES % (AUTO) 3 % (12-44); MEAN CORPUSCULAR HEMOGLOBIN 31 pg (25-34); MEAN CORPUSCULAR HGB CONC 33 g/dL (32-36); MEAN CORPUSCULAR VOLUME 94 fL (80-99); MEAN PLATELET VOLUME 9.9 fL (9.0-12.2); MONOCYTES # (AUTO) 0.5 10^3/uL (0.0-1.0); MONOCYTES % (AUTO) 2 % (0-12); NEUTROPHILS # (AUTO) 19.9 10^3/uL (1.8-7.8); NEUTROPHILS % (AUTO) 93 % (42-75); PLATELET COUNT 245 10^3/uL (130-400); WHITE BLOOD COUNT 21.3 10^3/uL (4.3-11.0)
[2021-08-10 02:48] LABS: POTASSIUM 3.5 MMOL/L (3.6-5.0)
[2021-08-10] MEDS: KCL 20 MEQ TAB (K-DUR) PO SCH (02:52)
[2021-08-10] MEDS: POTASSIUM CL 10MEQ/50ML IVPB 50 ML IV SCH ×7 (02:53→19:49)
[2021-08-10 02:54] LABS: CREATININE SERUM 0.55 MG/DL (0.60-1.30); PHOSPHORUS 1.3 MG/DL (2.3-4.7)
[2021-08-10] MEDS: MAGNESIUM 1 GM/100 ML IVPB 100 ML IV SCH (03:03)
--- NOTE | 2021-08-10 03:12 | Tele-ICU Progress Note ---
Subjective Date Seen by a Provider: Aug 10, 2021 Subjective/Events-last exam pt is agitated and confused Sepsis Event Evaluation Height, Weight, BMI Height: 5'0" Weight: 150lbs. oz. 68.429426lc; 29.83 BMI Method:Stated Focused Exam Lactate Level 08/08/21 02:29: Lactic Acid Level 4.01*H 08/08/21 05:10: Lactic Acid Level 2.74*H 08/08/21 07:40: Lactic Acid Level 1.54 Exam Exam Patient acknowledged, consented, and participated in this virtual visit which was conducted using real time audio/video Vital Signs Date Time Temp Pulse Resp B/P (MAP) Pulse Ox O2 Delivery O2 Flow Rate FiO2 08/10/21 02:36 37.4 Vapotherm 40.00 100.00 08/10/21 02:00 117 21 121/81 89 Vapotherm 30.00 80.00 08/10/21 01:42 Vapotherm 30.00 80.00 08/10/21 01:31 98 Vapotherm 40.00 100 08/10/21 01:24 Vapotherm 40.00 100.00 08/10/21 01:00 102 08/10/21 01:00 103 29 116/79 95 Vapotherm 30.00 80.00 08/10/21 00:00 93 29 86/69 93 Vapotherm 30.00 80.00 08/09/21 23:36 93 Vapotherm 30.00 80 08/09/21 23:32 36.9 Vapotherm 30.00 80.00 08/09/21 23:20 94 NIV Bilevel 40 08/09/21 23:00 91 31 94/63 93 NIV Bilevel 40.00 08/09/21 22:20 107 30 92 40.00 08/09/21 22:08 NIV Bilevel 40.00 08/09/21 22:07 NIV Bilevel 30.00 08/09/21 22:00 107 27 126/94 91 High Flow N/C 10.00 08/09/21 21:50 112 140/123 08/09/21 21:45 High Flow N/C 10.00 08/09/21 21:31 High Flow N/C 6.00 08/09/21 21:00 115 36 134/101 90 High Flow N/C 4.00 08/09/21 20:02 94 High Flow N/C 4.00 08/09/21 20:00 116 30 127/102 94 High Flow N/C 4.00 08/09/21 19:40 88 High Flow N/C 4.00 08/09/21 19:30 93 Room Air 08/09/21 19:00 110 08/09/21 19:00 36.3 112 14 130/92 93 Room Air Automatic Cuff Arterial Line 08/09/21 18:00 35.6 113 21 122/90 94 Room Air 08/09/21 17:00 36.3 105 15 114/96 95 Room Air 08/09/21 16:00 100 Room Air 21 08/09/21 16:00 36.3 104 16 128/90 98 Room Air 08/09/21 15:00 36.1 113 18 137/97 100 Room Air 08/09/21 14:00 98 08/09/21 14:00 36.7 109 21 117/97 80 Room Air 08/09/21 13:00 98 08/09/21 13:00 36.7 112 21 121/95 80 Room Air 08/09/21 13:00 107 08/09/21 12:00 36.5 102 21 91/57 80 Room Air 08/09/21 11:58 100 Room Air 21 08/09/21 11:00 36.4 102 21 100/61 97 Room Air 08/09/21 10:00 37.1 79 21 98/69 100 Room Air 08/09/21 09:00 37.2 90 21 85/52 100 Room Air 08/09/21 08:05 90 112/73 08/09/21 08:00 37.5 116 21 112/73 100 Mechanical Ventilator 21.00 08/09/21 08:00 100 Mechanical Ventilator 21 08/09/21 08:00 37.6 08/09/21 07:59 90 08/09/21 07:12 116 17 100 21 08/09/21 07:00 37.5 103 21 113/76 100 Mechanical Ventilator 21.00 08/09/21 06:57 116 17 100 21 08/09/21 06:55 117 22 90 08/09/21 06:00 37.6 87 21 95/68 100 Mechanical Ventilator 21.00 08/09/21 05:00 37.6 86 21 106/77 100 Mechanical Ventilator 21.00 08/09/21 04:00 37.5 86 21 107/77 100 Mechanical Ventilator 21.00 08/09/21 04:00 100 Mechanical Ventilator 21 I & O 08/10/21 07:00 Intake Total 475 ml Output Total 815 ml Balance -340 ml Height & Weight Height: 5'0" Weight: 150lbs. oz. 68.202442uj; 29.83 BMI Method:Stated General Appearance: No Apparent Distress, WD/WN, Anxious HEENT: No Scleral Icterus (L), No Scleral Icterus (R) Neck: Non Tender; No Lymphadenopathy (L), No Lymphadenopathy (R) Respiratory: Chest Non Tender, Lungs Clear, Normal Breath Sounds, Accessory Muscle Use, Decreased Breath Sounds Cardiovascular: Regular Rate, Rhythm, No Edema, No Murmur Capillary Refill: Less Than 3 Seconds Extremity: Normal Capillary Refill Neurologic/Psychiatric: Oriented x3, Depressed Affect, Other (Very fatigued ) Skin: Normal Color, Warm/Dry Lymphatic: No Adenopathy Results Lab Laboratory Tests 08/09/21 04:44 08/10/21 02:30 Assessment/Plan Assessment/Plan Acute resp failure cxray shows worse infiltrates: pna vs fluid overload abg reviewed consider diuresis in the context of llvef 15% pt failed BIPAP/ Precedex didnt help may need invasive mechanical ventilation pt was visualized; dw bed side VICTORIA Salinas MD Aug 10, 2021 03:12
[2021-08-10] MEDS ORDERED: FUROSEMIDE 40 MG/4 ML INJ (LASIX) ONE (03:13)
[2021-08-10] MEDS ORDERED: FUROSEMIDE 40 MG/4 ML INJ (LASIX) IVP ONE ×2 (03:15→10:00)
[2021-08-10] MEDS: inSUlin ASPART (NovoLOG) 1 UNIT/0.01 ML (CHARGE PER UNIT) SC SCH ×4 (05:00→23:35)
[2021-08-10] MEDS: CEFEPIME INJECTION 1,000 MG in NS (IVPB) 50 ML IV SCH ×4 (05:01→23:35)
[2021-08-10] MEDS: guaiFENesin/CODEINE (ROBITUSSIN AC) 10ML UDC PO PRN (06:00)
[2021-08-10] MEDS ORDERED: CEPACOL SORE THROAT-COUGH LOZENGE PO PRN (06:00)
--- NOTE | 2021-08-10 06:49 | Diagnostic Imaging Report ---
INDICATION: Shortness of air, increased O2 needs. EXAMINATION: Chest 08/10/2021 COMPARISON: 08/08/2021 FINDINGS: There are diffuse increased airspace opacities throughout both lungs which worsened since previous examination. Heart normal. Pulmonary vasculature congested. No effusions. No pneumothorax. PICC line is stable in positioning. ET tube and feeding tube removed in the interval. IMPRESSION: 1. Diffuse worsened bilateral infiltrates. 2. Pulmonary vascular congestion. Dictated by: Dictated on workstation # [id number]
[2021-08-10] MEDS: PANTOPRAZOLE 40 MG (PROTONIX) VIAL IV SCH (07:53)
[2021-08-10] MEDS: SPIRONOLACTONE 25 MG (ALDACTONE) TAB PO SCH (07:54)
[2021-08-10] MEDS: ASPIRIN 81 MG CHEW (CHILDREN'S ASA) PO SCH (07:54)
[2021-08-10] MEDS: CLOPIDOGREL 75 MG (PLAVIX) TABLET PO SCH (07:55)
[2021-08-10] MEDS: meTOprolol TARTRATE 25 MG (LOPRESSOR) TABLET PO SCH (07:55)
[2021-08-10] MEDS: CHLORASEPTIC SPRAY 177 ML LIQUID MC PRN (08:03)
--- NOTE | 2021-08-10 08:58 | Tele-ICU Progress Note ---
Subjective Date Seen by a Provider: Aug 10, 2021 Time Seen by a Provider: 08:53 Subjective/Events-last exam called by RN for tachypnea and anxiety, spont RR is in high 20's, is awake and does have cough reflex Tried on vapotherm, now on BiPAP 12/6 FIO2 60%, will give small dose of IV Ativan 1 mg. Pt is post CP arrest due to CAD, has stent in LAD pt needs to be watched closely as my need re intubation Sepsis Event Evaluation Height, Weight, BMI Height: 5'0" Weight: 150lbs. oz. 68.921933re; 30.78 BMI Method:Stated Focused Exam Lactate Level 08/08/21 05:10: Lactic Acid Level 2.74*H 08/08/21 07:40: Lactic Acid Level 1.54 08/10/21 03:55: Lactic Acid Level 1.66 Exam Exam Patient acknowledged, consented, and participated in this virtual visit which was conducted using real time audio/video Vital Signs Date Time Temp Pulse Resp B/P (MAP) Pulse Ox O2 Delivery O2 Flow Rate FiO2 08/10/21 08:00 117 25 107/82 93 Vapotherm 30.00 90.00 08/10/21 08:00 36.5 08/10/21 08:00 90 Vapotherm 30.00 90 08/10/21 07:40 91 Vapotherm 30.00 90 08/10/21 07:00 122 26 120/80 93 Vapotherm 30.00 90.00 08/10/21 07:00 111 08/10/21 06:00 120 29 109/91 92 30.00 90.00 08/10/21 05:09 Vapotherm 30.00 90.00 08/10/21 05:00 120 17 118/78 91 30.00 80.00 08/10/21 04:56 Vapotherm 30.00 80.00 08/10/21 04:00 118 30 98/82 91 40.00 100.00 08/10/21 03:30 90 Vapotherm 40.00 100 08/10/21 03:30 36.8 Vapotherm 40.00 100.00 08/10/21 03:00 121 120/75 88 Vapotherm 40.00 100.00 08/10/21 02:36 37.4 Vapotherm 40.00 100.00 08/10/21 02:00 117 21 121/81 89 Vapotherm 30.00 80.00 08/10/21 01:42 Vapotherm 30.00 80.00 08/10/21 01:31 98 Vapotherm 40.00 100 08/10/21 01:24 Vapotherm 40.00 100.00 08/10/21 01:00 102 08/10/21 01:00 103 29 116/79 95 Vapotherm 30.00 80.00 08/10/21 00:00 93 29 86/69 93 Vapotherm 30.00 80.00 08/09/21 23:36 93 Vapotherm 30.00 80 08/09/21 23:32 36.9 Vapotherm 30.00 80.00 08/09/21 23:20 94 NIV Bilevel 40 08/09/21 23:00 91 31 94/63 93 NIV Bilevel 40.00 08/09/21 22:20 107 30 92 40.00 08/09/21 22:08 NIV Bilevel 40.00 08/09/21 22:07 NIV Bilevel 30.00 08/09/21 22:00 107 27 126/94 91 High Flow N/C 10.00 08/09/21 21:50 112 140/123 08/09/21 21:45 High Flow N/C 10.00 08/09/21 21:31 High Flow N/C 6.00 08/09/21 21:00 115 36 134/101 90 High Flow N/C 4.00 08/09/21 20:02 94 High Flow N/C 4.00 08/09/21 20:00 116 30 127/102 94 High Flow N/C 4.00 08/09/21 19:40 88 High Flow N/C 4.00 08/09/21 19:30 93 Room Air 08/09/21 19:00 110 08/09/21 19:00 36.3 112 14 130/92 93 Room Air Automatic Cuff Arterial Line 08/09/21 18:00 35.6 113 21 122/90 94 Room Air 08/09/21 17:00 36.3 105 15 114/96 95 Room Air 08/09/21 16:00 100 Room Air 21 08/09/21 16:00 36.3 104 16 128/90 98 Room Air 08/09/21 15:00 36.1 113 18 137/97 100 Room Air 08/09/21 14:00 98 08/09/21 14:00 36.7 109 21 117/97 80 Room Air 08/09/21 13:00 98 08/09/21 13:00 36.7 112 21 121/95 80 Room Air 08/09/21 13:00 107 08/09/21 12:00 36.5 102 21 91/57 80 Room Air 08/09/21 11:58 100 Room Air 21 08/09/21 11:00 36.4 102 21 100/61 97 Room Air 08/09/21 10:00 37.1 79 21 98/69 100 Room Air 08/09/21 09:00 37.2 90 21 85/52 100 Room Air I & O 08/10/21 07:00 Intake Total 725 ml Output Total 3265 ml Balance -2540 ml Height & Weight Height: 5'0" Weight: 150lbs. oz. 68.502823ac; 30.78 BMI Method:Stated General Appearance: No Apparent Distress, WD/WN, Chronically ill HEENT: No Scleral Icterus (L), No Scleral Icterus (R) Neck: Non Tender; No Lymphadenopathy (L), No Lymphadenopathy (R) Respiratory: Lungs Clear, Normal Breath Sounds, Crackles, Rhonci, Other (dry cough) Cardiovascular: Regular Rate, Rhythm, Tachycardia Capillary Refill: Less Than 3 Seconds Gastrointestinal: normal bowel sounds, non tender Extremity: Normal Capillary Refill, No Pedal Edema Neurologic/Psychiatric: Alert, Oriented x3, No Motor/Sensory Deficits, Normal M ood/Affect, Other (oriented to self) Skin: Normal Color, Warm/Dry Lymphatic: No Adenopathy Results Lab Laboratory Tests 08/09/21 04:44 08/10/21 02:30 Assessment/Plan Assessment/Plan Patient at risk for re intubation, now spont RR 34 on BiPAP 03/26, will watch closely, but if RR goes higher will have to re intubate Critical Care: Critically Ill Patient Time spent with patient (mins): 30 CELSO JENNINGS MD Aug 10, 2021 08:58
[2021-08-10] MEDS: EPINEPHrine 1 MG INJECTION 4 MG in NS (IVPB) 246 ML IV SCH ×2 (09:34→11:55)
[2021-08-10] MEDS: ENOXAPARIN 40 MG/0.4 ML (LOVENOX) SYR SC SCH (09:48)
[2021-08-10] MEDS ORDERED: ENOXAPARIN 40 MG/0.4 ML (LOVENOX) SYR SC SCH (10:00)
--- NOTE | 2021-08-10 10:12 | Progress Note - Cardiology ---
Cardiology SOAP Progress Note Subjective: She does not report cp or shortness of breath Her nurse reports incessant cough and intermittent hypoxia, relieved only by Bi PAP No palp or syncope Objective: I&O/Vital Signs 08/09/21 08/09/21 08/09/21 08/09/21 22:08 22:20 23:00 23:20 Pulse 107 91 Resp 30 31 B/P (MAP) 94/63 Pulse Ox 92 93 94 O2 Delivery NIV Bilevel NIV Bilevel NIV Bilevel O2 Flow Rate 40.00 40.00 40.00 FiO2 40 08/09/21 08/09/21 08/10/21 08/10/21 23:32 23:36 00:00 01:00 Temp 36.9 Pulse 93 103 Resp 29 29 B/P (MAP) 86/69 116/79 Pulse Ox 93 93 95 O2 Delivery Vapotherm Vapotherm Vapotherm Vapotherm O2 Flow Rate 30.00 30.00 30.00 30.00 80.00 80.00 80.00 FiO2 80 08/10/21 08/10/21 08/10/21 08/10/21 01:00 01:24 01:31 01:42 Pulse 102 Pulse Ox 98 O2 Delivery Vapotherm Vapotherm Vapotherm O2 Flow Rate 40.00 40.00 30.00 100.00 80.00 FiO2 100 08/10/21 08/10/21 08/10/21 08/10/21 02:00 02:36 03:00 03:30 Temp 37.4 36.8 Pulse 117 121 Resp 21 B/P (MAP) 121/81 120/75 Pulse Ox 89 88 O2 Delivery Vapotherm Vapotherm Vapotherm Vapotherm O2 Flow Rate 30.00 40.00 40.00 40.00 80.00 100.00 100.00 100.00 08/10/21 08/10/21 08/10/21 08/10/21 03:30 04:00 04:56 05:00 Pulse 118 120 Resp 30 17 B/P (MAP) 98/82 118/78 Pulse Ox 90 91 91 O2 Delivery Vapotherm Vapotherm O2 Flow Rate 40.00 40.00 30.00 30.00 100.00 80.00 80.00 FiO2 100 08/10/21 08/10/21 08/10/21 08/10/21 05:09 06:00 07:00 07:00 Pulse 120 111 122 Resp 29 26 B/P (MAP) 109/91 120/80 Pulse Ox 92 93 O2 Delivery Vapotherm Vapotherm O2 Flow Rate 30.00 30.00 30.00 90.00 90.00 90.00 08/10/21 08/10/21 08/10/21 08/10/21 07:40 08:00 08:00 08:00 Temp 36.5 Pulse 117 Resp 25 B/P (MAP) 107/82 Pulse Ox 91 90 93 O2 Delivery Vapotherm Vapotherm Vapotherm O2 Flow Rate 30.00 30.00 30.00 90.00 FiO2 90 90 08/10/21 08/10/21 08/10/21 09:00 09:00 09:06 Pulse 111 106 Resp 37 34 B/P (MAP) 115/69 Pulse Ox 91 94 96 O2 Delivery NIV Bilevel NIV Bilevel O2 Flow Rate 60.00 60.00 60.00 08/10/21 00:00 Intake Total 375 ml Output Total 565 ml Balance -190 ml Weight (Pounds): 150 Weight (Calculated Kilograms): 68.562680 Constitutional: well-developed, well-nourished, other (Oriented to place and person, mildy confused) Respiratory: No accessory muscle use; other (on mech vent) Cardiovascular: regular rate-rhythm, S1 and S2, systolic murmur (soft LIS at card basee) Gastrointestional: soft, audible bowel sounds Extremities: No clubbing, No cyanosis, No significant edema Neurologic/Psychiatric: other (awake, alert, appropriate; moving all extremities) Skin: No rash, No ulcerations Results/Procedures: Labs Laboratory Tests 08/09/21 17:30: Glucometer 97 08/09/21 23:29: Glucometer 101 08/10/21 02:23: Blood Gas Puncture Site LEFT RADIAL, Blood Gas Patient Temperature 37.4, Arterial Blood pH 7.35L, Arterial Blood Partial Pressure CO2 26L, Arterial Blood Partial Pressure O2 61L, Arterial Blood HCO3 14*L, Arterial Blood Total CO2 14.7L, Arterial Blood Oxygen Saturation 92L, Arterial Blood Base Excess -10.6L, Alo Test POSITIVE, Blood Gas Ventilator Setting NO, Blood Gas Inspired Oxygen 80% 08/10/21 02:30: White Blood Count 21.3H, Red Blood Count 3.49L, Hemoglobin 10.9L, Hematocrit 33L , Mean Corpuscular Volume 94, Mean Corpuscular Hemoglobin 31, Mean Corpuscular Hemoglobin Concent 33, Red Cell Distribution Width 12.3, Platelet Count 245, Mean Platelet Volume 9.9, Immature Granulocyte % (Auto) 1, Neutrophils (%) (Auto) 93H, Lymphocytes (%) (Auto) 3L, Monocytes (%) (Auto) 2, Eosinophils (%) (Auto) 0, Basophils (%) (Auto) 0, Neutrophils # (Auto) 19.9H, Lymphocytes # (Auto) 0.7L, Monocytes # (Auto) 0.5, Eosinophils # (Auto) 0.0, Basophils # (Auto) 0.0, Immature Granulocyte # (Auto) 0.2H, Sodium Level 134L, Potassium Level 3.5L, Chloride Level 106, Carbon Dioxide Level 12L, Anion Gap 16H, Blood Urea Nitrogen 11, Creatinine 0.55L, Estimat Glomerular Filtration Rate 120, BUN/Creatinine Ratio 20, Glucose Level 126H, Calcium Level 7.0L, Phosphorus Level 1.3L, Magnesium Level 2.0 08/10/21 03:55: Lactic Acid Level 1.66 Microbiology 08/07/21 Blood Culture - Preliminary, Resulted No growth 08/07/21 Gram Stain - Final, Complete 08/07/21 Sputum Culture - Final, Complete Usual upper respiratory kimberly Laboratory Tests 08/09/21 04:44 08/10/21 02:30 A/P: Assessment: Cardiac arrest and subsequent cardiogenic shock due to acute anterolat [place] - card cath of 08/07/21: mid-vessel occlusion of LAD (treated with primary angioplasty and stenting with SkyPoint 2.5x33 stent), 60-70% prox stenosis of RCA, LVEDP 39 mmHg, LVEF 25%, ant-lat and apical hypokinesis to akinesis - echo on 08/08/21: LVEF 20%, nathen-apical and nathen-lateral hypokinesis to akinesis Ac resp failure, improving Cough: CHF and/or intubation-related and/or OSMEL-inhib related Plan: * Treat with DAPT, beta-casandra and spironolactone, titrate doses as bp allows * Change OSMEL-inhib to ARB (due to cough) * iv furosemide as needed * Replenish K * Monitor labs * Prognosis guarded * Appreciated assistance by Juan Carlos and James rodriguez * Discussed her cardiac issues with her and her significant other JACKELYN BROWN MD FACP [facility] Aug 10, 2021 10:12
[2021-08-10] MEDS: LORazepam INJ 2 MG/ML (ATIVAN) VIAL IVP PRN (10:31)
[2021-08-10] MEDS: HALOPERIDOL 5 MG/ML (HALDOL) VIAL IM PRN ×2 (11:21→15:39)
--- NOTE | 2021-08-10 12:48 | Progress Note - Hospitalist ---
MARIANGEL PENA MED STUDENT 08/10/21 1247: Subjective HPI/CC On Admission Date Seen by Provider: Aug 10, 2021 Time Seen by Provider: 10:00 CC: Cardiac arrest HPI: This is a 41 yr old WF with a past medical history of alcohol use in addition to early family history of premature CAD and sudden cardiac . She presents to the ICU bed 9 after cardiac cath emergently when she presented to the ER by private vehicle. She was found to have ventricular tachycardia status post multiple shocks and now remains on aggressive pressure therapy. Temperature was low overnight and maintained on the ventilator. We will check her neurological status when she is able to be weaned off the ventilator. Overall poor prognosis given her ejection fraction of 15%. Subjective/Events-last exam Miss Terry is awake and agitated this morning. Her oxygen requirements increased overnight and she is currently on the BiPAP. She is not tolerating the mask well and is trying to pull it off every 4-5 minutes. Her short term memory has been negatively affected by the cardiac arrest. Her family is here with her today. Was given Lasix overnight. Review of Systems General: Fatigue, Other (Agitated ) HEENT: No Head Aches Cardiovascular: No: Chest Pain, Palpitations Gastrointestinal: No: Nausea, Vomiting Neurological: Confusion Limited ROS due to clinical condition Focused Exam Lactate Level 08/08/21 05:10: Lactic Acid Level 2.74*H 08/08/21 07:40: Lactic Acid Level 1.54 08/10/21 03:55: Lactic Acid Level 1.66 Objective Exam Vital Signs Vital Signs Date Time Temp Pulse Resp B/P (MAP) Pulse Ox O2 Delivery O2 Flow Rate FiO2 08/10/21 12:21 100 NIV Bilevel 60 08/10/21 11:02 112 31 60.00 08/10/21 11:00 105/71 08/10/21 08:00 36.5 Capillary Refill : Less Than 3 Seconds General Appearance: WD/WN, Anxious, Moderate Distress HEENT: Moist Mucous Membranes; No Scleral Icterus (R) Neck: Supple; No Lymphadenopathy (L), No Lymphadenopathy (R) Respiratory: Crackles (LLL and RLL ), Respiratory Distress Cardiovascular: Regular Rate, Rhythm, No Edema, Normal Peripheral Pulses Gastrointestinal: Normal Bowel Sounds, Soft Neurologic/Psychiatric: Alert, Disoriented, Other (agitation ) Skin: Normal Color, Warm/Dry Lymphatic: No Adenopathy Results/Procedures Lab Laboratory Tests 08/10/21 02:30 Patient resulted labs reviewed. Imaging: Reviewed Imaging Report Radiology NAME: [facility] REC#: [id number] PT STATUS: ADM IN : 1980 PHYSICIAN: KATHIA OCHOA DO ADMIT DATE: 08/07/21/ICU Signed Date of Exam:08/10/21 CHEST 1 VIEW, AP/PA ONLY INDICATION: Shortness of air, increased O2 needs. EXAMINATION: Chest 08/10/2021 COMPARISON: 08/08/2021 FINDINGS: There are diffuse increased airspace opacities throughout both lungs which worsened since previous examination. Heart normal. Pulmonary vasculature congested. No effusions. No pneumothorax. PICC line is stable in positioning. ET tube and feeding tube removed in the interval. IMPRESSION: 1. Diffuse worsened bilateral infiltrates. 2. Pulmonary vascular congestion. Dictated by: Dictated on workstation # [id number] Dict: 08/10/2131 Trans: 08/10/21 0909 CVB [id number] Interpreted by: DAVID CHANEL MD Electronically signed by: DAVID CHANEL MD 08/10/21 0909 Assessment/Plan Assessment and Plan Assess & Plan/Chief Complaint Assessment - Cardiac arrest - Cardiogenic shock - Acute respiratory failure - S/P LAD stent placement - lactic acidosis - leukocytosis - transaminitis - hypokalemia - improved - hypocalcemia - improved - hypophosphatemia - elevated troponins Plan - Continue per Cardiology plan - Extubated - Started on BiPAP, possible re-intubation needed - Ativan for agitation, prn - AB.35 - Levophed gtt - Blood cultures are negative - Sputum culture grew normal respiratory kimberly - appreciate eICU - IVF - IV cefepime - Supportive care - electrolyte replacement as indicated KATHIA OCHOA DO 08/10/212043: Subjective Subjective/Events-last exam Patient becoming delirious Haldol ordered Supportive care will continue Still critically ill Review of Systems General: Fatigue Pulmonary: Dyspnea Neurological: Confusion Objective Exam General Appearance: WD/WN, Anxious, Chronically ill, Moderate Distress Respiratory: Crackles (LLL and RLL ), Decreased Breath Sounds Assessment/Plan Assessment and Plan Assess & Plan/Chief Complaint Delirium treatment Critically ill Supervisory-Addendum Brief Verification & Attestation Participated in pt care: history, MDM, physical Personally performed: exam, history, MDM, supervision of care Care discussed with: Medical Student Procedures: n/a Results interpretation: Verified all documentation Verification and Attestation of Medical Student E/M Service A medical student performed and documented this service in my presence. I reviewed and verified all information documented by the medical student and made modifications to such information, when appropriate. I personally performed the physical exam and medical decision making. Kathia Ocoha, Aug 10, 2021,20:44 MARIANGEL PENA MED STUDENT Aug 10, 2021 12:47 KATHIA OCHOA DO Aug 10, 2021 20:44
[2021-08-10 14:36] LABS: CALCIUM 7.2 MG/DL (8.5-10.1); CREATININE SERUM 0.59 MG/DL (0.60-1.30); POTASSIUM 2.7 MMOL/L (3.6-5.0)
[2021-08-10 15:04] VITALS: BP 94/58
[2021-08-10 23:00] LABS: POTASSIUM 3.4 MMOL/L (3.6-5.0)
[2021-08-10 23:02] LABS: CALCIUM 7.2 MG/DL (8.5-10.1)
[2021-08-10 23:06] LABS: CREATININE SERUM 0.52 MG/DL (0.60-1.30)
[2021-08-10] MEDS: NS IV 1000 ML 1,000 ML IV SCH (23:10)
[2021-08-10] MEDS ORDERED: POTASSIUM CL 10MEQ/50ML IVPB 50 ML IV SCH (23:15)
[2021-08-11 03:48] LABS: POTASSIUM 3.6 MMOL/L (3.6-5.0)
[2021-08-11 03:49] LABS: CALCIUM 7.4 MG/DL (8.5-10.1)
[2021-08-11 03:51] LABS: BASOPHILS % (AUTO) 0 % (0-10); EOSINOPHILS % (AUTO) 0 % (0-10); HEMATOCRIT 33 % (35-52); HEMOGLOBIN 11.1 g/dL (11.5-16.0); LYMPHOCYTES # (AUTO) 0.9 10^3/uL (1.0-4.0); LYMPHOCYTES % (AUTO) 6 % (12-44); MEAN CORPUSCULAR HEMOGLOBIN 31 pg (25-34); MEAN CORPUSCULAR HGB CONC 34 g/dL (32-36); MEAN CORPUSCULAR VOLUME 91 fL (80-99); MEAN PLATELET VOLUME 9.7 fL (9.0-12.2); MONOCYTES # (AUTO) 0.5 10^3/uL (0.0-1.0); MONOCYTES % (AUTO) 3 % (0-12); NEUTROPHILS # (AUTO) 13.1 10^3/uL (1.8-7.8); NEUTROPHILS % (AUTO) 90 % (42-75); PLATELET COUNT 241 10^3/uL (130-400); WHITE BLOOD COUNT 14.6 10^3/uL (4.3-11.0)
[2021-08-11 03:54] LABS: CREATININE SERUM 0.51 MG/DL (0.60-1.30)
[2021-08-11 03:56] LABS: MAGNESIUM 2.1 MG/DL (1.6-2.4)
[2021-08-11 04:02] LABS: PHOSPHORUS 0.7 MG/DL (2.3-4.7)
[2021-08-11] MEDS: EPINEPHrine 1 MG INJECTION 4 MG in NS (IVPB) 246 ML IV SCH ×2 (04:57→12:41)
[2021-08-11] MEDS: MAGNESIUM 1 GM/100 ML IVPB 100 ML IV SCH (05:24)
[2021-08-11] MEDS: POTASSIUM CL 10MEQ/50ML IVPB 50 ML IV SCH (05:24)
[2021-08-11] MEDS: inSUlin ASPART (NovoLOG) 1 UNIT/0.01 ML (CHARGE PER UNIT) SC SCH ×3 (05:25→17:40)
[2021-08-11] MEDS: KCL 20 MEQ TAB (K-DUR) PO SCH (05:25)
[2021-08-11] MEDS: CEFEPIME INJECTION 1,000 MG in NS (IVPB) 50 ML IV SCH ×3 (06:24→17:42)
[2021-08-11] MEDS ORDERED: POTASSIUM PHOSPHATE INJ 30 MM in NS (IVPB) 250 ML IV ONE (07:00)
[2021-08-11] MEDS: PANTOPRAZOLE 40 MG (PROTONIX) VIAL IV SCH (08:34)
[2021-08-11] MEDS: CHLORASEPTIC SPRAY 177 ML LIQUID MC PRN (09:19)
--- NOTE | 2021-08-11 09:48 | Tele-ICU Progress Note ---
Progress Note 41 y/o s/pcardiac arrest and STEMI Was in CCl with stent to LAD placed Now extubated Somewhat agitated and restless Cardiology following Laboratory Tests 08/10/21 13:45 08/10/21 22:40 08/11/21 03:30 Labs Labs Laboratory Tests 08/10/21 13:45: Sodium Level 138, Potassium Level 2.7L, Chloride Level 101, Carbon Dioxide Level 21, Anion Gap 16H, Blood Urea Nitrogen 9, Creatinine 0.59L, Estimat Glomerular Filtration Rate 117, BUN/Creatinine Ratio 15, Glucose Level 136H, Calcium Level 7.2L 08/10/21 17:48: Glucometer 125H 08/10/21 22:40: Sodium Level 138, Potassium Level 3.4L, Chloride Level 104, Carbon Dioxide Level 21, Anion Gap 13, Blood Urea Nitrogen 7, Creatinine 0.52L, Estimat Glomerular Filtration Rate 121, BUN/Creatinine Ratio 13, Glucose Level 133H, Calcium Level 7.2L 08/11/21 03:30: Sodium Level 141, Potassium Level 3.6, Chloride Level 106, Carbon Dioxide Level 20L, Anion Gap 15H, Blood Urea Nitrogen 7, Creatinine 0.51L, Estimat Glomerular Filtration Rate 122, BUN/Creatinine Ratio 14, Glucose Level 117H, Calcium Level 7.4L, White Blood Count 14.6H, Red Blood Count 3.61L, Hemoglobin 11.1L, Hematocrit 33L, Mean Corpuscular Volume 91, Mean Corpuscular Hemoglobin 31, Mean Corpuscular Hemoglobin Concent 34, Red Cell Distribution Width 11.9, Platelet Count 241, Mean Platelet Volume 9.7, Immature Granulocyte % (Auto) 0, Neutrophils (%) (Auto) 90H, Lymphocytes (%) (Auto) 6L, Monocytes (%) (Auto) 3, Eosinophils (%) (Auto) 0, Basophils (%) (Auto) 0, Neutrophils # (Auto) 13.1H, Lymphocytes # (Auto) 0.9L, Monocytes # (Auto) 0.5, Eosinophils # (Auto) 0.0, Basophils # (Auto) 0.0, Immature Granulocyte # (Auto) 0.1, Phosphorus Level 0.7*L, Magnesium Level 2.1 Microbiology 08/07/21 Urine Culture - Final, Complete NO GROWTH 08/07/21 Blood Culture - Preliminary, Resulted No growth 08/07/21 Gram Stain - Final, Complete 08/07/21 Sputum Culture - Final, Complete Usual upper respiratory kimberly Focused Exam Lactate Level 08/10/21 03:55: Lactic Acid Level 1.66 Height, Weight, BMI Height: 5'0" Weight: 150lbs. oz. 68.816565qy; 30.78 BMI Method:Stated CELSO HOLDER MD Aug 11, 2021 09:48
[2021-08-11] MEDS: NS IV 1000 ML 1,000 ML IV SCH (11:00)
--- NOTE | 2021-08-11 11:20 | Progress Note - Hospitalist ---
Subjective HPI/CC On Admission Date Seen by Provider: Aug 11, 2021 Time Seen by Provider: 10:00 CC: Cardiac arrest HPI: This is a 41 yr old WF with a past medical history of alcohol use in addition to early family history of premature CAD and sudden cardiac . She presents to the ICU bed 9 after cardiac cath emergently when she presented to the ER by private vehicle. She was found to have ventricular tachycardia status post multiple shocks and now remains on aggressive pressure therapy. Temperature was low overnight and maintained on the ventilator. We will check her neurological status when she is able to be weaned off the ventilator. Overall poor prognosis given her ejection fraction of 15%. Subjective/Events-last exam Patient slightly confused but able to follow simple commands and family reports she is much better from a mental status standpoint. She was oriented to month and year. She reports some mild right foot pain denies any other complaints cough is significantly improved and she did not cough at all during the interview even when taking deep breaths. She denies chest discomfort or shortness of breath. Focused Exam Lactate Level 08/10/21 03:55: Lactic Acid Level 1.66 Objective Exam Vital Signs Vital Signs Date Time Temp Pulse Resp B/P (MAP) Pulse Ox O2 Delivery O2 Flow Rate FiO2 08/11/21 11:00 108 23 108/97 90 Vapotherm 20.00 45.00 08/11/21 08:35 45 08/11/21 08:00 36.8 Capillary Refill : Less Than 3 Seconds General Appearance: No Apparent Distress Respiratory: Chest Non Tender, Lungs Clear, Normal Breath Sounds, No Accessory Muscle Use, No Respiratory Distress Cardiovascular: Regular Rate, Rhythm, No Edema, No Gallop, No JVD, No Murmur Gastrointestinal: Normal Bowel Sounds, No Organomegaly, No Pulsatile Mass, Non Tender, Soft Neurologic/Psychiatric: No Motor/Sensory Deficits (Patient looking around the room well orient to voice and follow commands moving all extremities able to take in fluids without coughing or choking able to do this independently no focal neurologic deficits noted.) Results/Procedures Lab Laboratory Tests 08/10/21 13:45 08/10/21 22:40 08/11/21 03:30 Patient resulted labs reviewed. Imaging: Reviewed Imaging Report Assessment/Plan Assessment and Plan Assess & Plan/Chief Complaint Cardiac arrest and subsequent cardiogenic shock due to acute anterolat [place] - card cath of 08/07/21: mid-vessel occlusion of LAD (treated with primary angioplasty and stenting with SkyPoint 2.5x33 stent), 60-70% prox stenosis of RCA, LVEDP 39 mmHg, LVEF 25%, ant-lat and apical hypokinesis to akinesis - echo on 08/08/21: LVEF 20%, nathen-apical and nathen-lateral hypokinesis to akinesis Heart failure due to above compensating with significant improvement in cough. Anoxic encephalopathy significant improvement per family. Critical Care Critically Ill Patient SOCRATES TRAMMELL MD Aug 11, 2021 11:20
[2021-08-11] MEDS: CLOPIDOGREL 75 MG (PLAVIX) TABLET PO SCH (11:33)
[2021-08-11] MEDS: ASPIRIN 81 MG CHEW (CHILDREN'S ASA) PO SCH (11:33)
[2021-08-11] MEDS: SPIRONOLACTONE 25 MG (ALDACTONE) TAB PO SCH (11:33)
[2021-08-11] MEDS: LOSARTAN 25 MG (COZAAR) TAB PO SCH (11:33)
[2021-08-11] MEDS: ENOXAPARIN 40 MG/0.4 ML (LOVENOX) SYR SC SCH (11:39)
--- NOTE | 2021-08-11 13:13 | Progress Note - Cardiology ---
Cardiology SOAP Progress Note Subjective: More alert today No cp or palp or syncope Less cough No shortness of breath at rest Objective: I&O/Vital Signs 08/11/21 08/11/21 08/11/21 08/11/21 01:20 02:00 02:40 03:00 Pulse 108 105 Resp 15 34 B/P (MAP) 104/48 106/71 Pulse Ox 97 97 98 O2 Delivery Vapotherm Vapotherm Vapotherm O2 Flow Rate 20.00 20.00 20.00 20.00 45.00 45.00 45.00 FiO2 45 08/11/21 08/11/21 08/11/21 08/11/21 04:00 04:00 04:00 05:00 Temp 36.7 Pulse 112 107 Resp 15 14 B/P (MAP) 101/82 108/71 Pulse Ox 96 100 97 O2 Delivery Vapotherm Vapotherm Vapotherm O2 Flow Rate 20.00 20.00 20.00 45.00 45.00 FiO2 45 08/11/21 08/11/21 08/11/21 08/11/21 06:00 07:00 07:00 08:00 Pulse 112 106 104 Resp 18 37 B/P (MAP) 106/70 90/52 Pulse Ox 97 94 100 O2 Delivery Vapotherm Vapotherm Vapotherm O2 Flow Rate 20.00 20.00 20.00 45.00 45.00 FiO2 45 08/11/21 08/11/21 08/11/21 08/11/21 08:00 08:00 08:35 09:00 Temp 36.8 Pulse 101 109 Resp 33 16 B/P (MAP) 90/63 110/59 Pulse Ox 94 96 96 O2 Delivery Vapotherm Vapotherm Vapotherm O2 Flow Rate 20.00 20.00 20.00 45.00 45.00 FiO2 45 08/11/21 08/11/21 08/11/21 08/11/21 10:00 11:00 11:17 12:00 Temp 36.8 Pulse 105 108 Resp 37 23 B/P (MAP) 104/70 108/97 Pulse Ox 96 90 95 O2 Delivery Vapotherm Vapotherm Vapotherm O2 Flow Rate 20.00 20.00 20.00 45.00 45.00 FiO2 45 08/11/21 08/11/21 08/11/21 08/11/21 12:00 12:00 13:00 13:00 Pulse 108 104 99 Resp 17 26 B/P (MAP) 109/74 Pulse Ox 100 98 96 O2 Delivery Vapotherm Vapotherm Vapotherm O2 Flow Rate 20.00 20.00 20.00 45.00 45.00 FiO2 45 08/11/21 00:00 Intake Total 250 ml Output Total 3000 ml Balance -2750 ml Weight (Pounds): 150 Weight (Calculated Kilograms): 68.009110 Constitutional: AAO x 3, well-developed, well-nourished, other Respiratory: No accessory muscle use; other (on mech vent) Cardiovascular: regular rate-rhythm, S1 and S2, systolic murmur (soft LIS at card basee) Gastrointestional: soft, audible bowel sounds Extremities: No clubbing, No cyanosis, No significant edema Neurologic/Psychiatric: other (awake, alert, appropriate; moving all extremities) Skin: No rash, No ulcerations Results/Procedures: Labs Laboratory Tests 08/10/21 13:45: Sodium Level 138, Potassium Level 2.7L, Chloride Level 101, Carbon Dioxide Level 21, Anion Gap 16H, Blood Urea Nitrogen 9, Creatinine 0.59L, Estimat Glomerular Filtration Rate 117, BUN/Creatinine Ratio 15, Glucose Level 136H, Calcium Level 7.2L 08/10/21 17:48: Glucometer 125H 08/10/21 22:40: Sodium Level 138, Potassium Level 3.4L, Chloride Level 104, Carbon Dioxide Level 21, Anion Gap 13, Blood Urea Nitrogen 7, Creatinine 0.52L, Estimat Glomerular Filtration Rate 121, BUN/Creatinine Ratio 13, Glucose Level 133H, Calcium Level 7.2L 08/11/21 03:30: Sodium Level 141, Potassium Level 3.6, Chloride Level 106, Carbon Dioxide Level 20L, Anion Gap 15H, Blood Urea Nitrogen 7, Creatinine 0.51L, Estimat Glomerular Filtration Rate 122, BUN/Creatinine Ratio 14, Glucose Level 117H, Calcium Level 7.4L, White Blood Count 14.6H, Red Blood Count 3.61L, Hemoglobin 11.1L, Bi tocrit 33L, Mean Corpuscular Volume 91, Mean Corpuscular Hemoglobin 31, Mean Corpuscular Hemoglobin Concent 34, Red Cell Distribution Width 11.9, Platelet Count 241, Mean Platelet Volume 9.7, Immature Granulocyte % (Auto) 0, Neutrophils (%) (Auto) 90H, Lymphocytes (%) (Auto) 6L, Monocytes (%) (Auto) 3, Eosinophils (%) (Auto) 0, Basophils (%) (Auto) 0, Neutrophils # (Auto) 13.1H, Lymphocytes # (Auto) 0.9L, Monocytes # (Auto) 0.5, Eosinophils # (Auto) 0.0, Basophils # (Auto) 0.0, Immature Granulocyte # (Auto) 0.1, Phosphorus Level 0.7*L, Magnesium Level 2.1 08/11/21 12:05: Glucometer 129H Microbiology 08/07/21 Urine Culture - Final, Complete NO GROWTH 08/07/21 Blood Culture - Preliminary, Resulted No growth 08/07/21 Gram Stain - Final, Complete 08/07/21 Sputum Culture - Final, Complete Usual upper respiratory kimberly Laboratory Tests 08/10/21 02:30 08/10/21 13:45 08/10/21 22:40 08/11/21 03:30 A/P: Assessment: Cardiac arrest and subsequent cardiogenic shock due to acute anterolat [place] - card cath of 08/07/21: mid-vessel occlusion of LAD (treated with primary angioplasty and stenting with SkyPoint 2.5x33 stent), 60-70% prox stenosis of RCA, LVEDP 39 mmHg, LVEF 25%, ant-lat and apical hypokinesis to akinesis - echo on 08/08/21: LVEF 20%, nathen-apical and nathen-lateral hypokinesis to akinesis Ac resp failure - improving Cough: CHF and/or intubation-related and/or OSMEL-inhib related - improving Plan: * Treat with DAPT, beta-casandra and spironolactone, titrate doses as bp allows * Changed OSMEL-inhib to ARB (due to cough) * iv furosemide as needed * Monitor labs and replace electrolytes * I had a long and detailed discussion with her and her fam regarding her CV issues and our treatment plan. I also discussed the case today with Dr Sutton * Keep in ICU for now JACKELYN BROWN MD [facility] Aug 11, 2021 13:13
[2021-08-11 15:59] LABS: CALCIUM 6.9 MG/DL (8.5-10.1); CREATININE SERUM 0.5 MG/DL (0.60-1.30); MAGNESIUM 1.9 MG/DL (1.6-2.4); POTASSIUM 3.7 MMOL/L (3.6-5.0)
[2021-08-11 16:04] LABS: PHOSPHORUS 0.8 MG/DL (2.3-4.7)
[2021-08-11] MEDS ORDERED: SODIUM PHOSPHATE INJ 30 MM in NS (IVPB) 250 ML INJ ONE (21:45)
[2021-08-12] MEDS: CEFEPIME INJECTION 1,000 MG in NS (IVPB) 50 ML IV SCH ×4 (00:20→18:22)
[2021-08-12] MEDS: inSUlin ASPART (NovoLOG) 1 UNIT/0.01 ML (CHARGE PER UNIT) SC SCH ×4 (00:37→18:22)
[2021-08-12] MEDS: EPINEPHrine 1 MG INJECTION 4 MG in NS (IVPB) 246 ML IV SCH ×3 (00:49→21:09)
[2021-08-12] MEDS: NS IV 1000 ML 1,000 ML IV SCH (02:34)
[2021-08-12 03:45] LABS: BASOPHILS % (AUTO) 0 % (0-10); EOSINOPHILS # (AUTO) 0.1 10^3/uL (0.0-0.3); EOSINOPHILS % (AUTO) 1 % (0-10); HEMATOCRIT 30 % (35-52); HEMOGLOBIN 9.8 g/dL (11.5-16.0); LYMPHOCYTES # (AUTO) 1.2 10^3/uL (1.0-4.0); LYMPHOCYTES % (AUTO) 13 % (12-44); MEAN CORPUSCULAR HEMOGLOBIN 31 pg (25-34); MEAN CORPUSCULAR HGB CONC 33 g/dL (32-36); MEAN CORPUSCULAR VOLUME 93 fL (80-99); MEAN PLATELET VOLUME 9.6 fL (9.0-12.2); MONOCYTES # (AUTO) 0.4 10^3/uL (0.0-1.0); MONOCYTES % (AUTO) 5 % (0-12); NEUTROPHILS % (AUTO) 80 % (42-75); PLATELET COUNT 253 10^3/uL (130-400); WHITE BLOOD COUNT 8.8 10^3/uL (4.3-11.0)
[2021-08-12] MEDS: LORazepam INJ 2 MG/ML (ATIVAN) VIAL IVP PRN (03:46)
[2021-08-12 04:02] LABS: POTASSIUM 3.7 MMOL/L (3.6-5.0)
[2021-08-12 04:03] LABS: CALCIUM 7.6 MG/DL (8.5-10.1)
[2021-08-12 04:08] LABS: CREATININE SERUM 0.48 MG/DL (0.60-1.30); PHOSPHORUS 2.9 MG/DL (2.3-4.7)
[2021-08-12] MEDS: POTASSIUM CL 10MEQ/50ML IVPB 50 ML IV SCH (04:59)
[2021-08-12] MEDS: MAGNESIUM 1 GM/100 ML IVPB 100 ML IV SCH (04:59)
[2021-08-12] MEDS: KCL 20 MEQ TAB (K-DUR) PO SCH (06:41)
[2021-08-12] MEDS: ASPIRIN 81 MG CHEW (CHILDREN'S ASA) PO SCH (09:14)
[2021-08-12] MEDS: PANTOPRAZOLE 40 MG (PROTONIX) VIAL IV SCH (09:14)
[2021-08-12] MEDS: SPIRONOLACTONE 25 MG (ALDACTONE) TAB PO SCH (09:14)
[2021-08-12] MEDS: CLOPIDOGREL 75 MG (PLAVIX) TABLET PO SCH (09:14)
--- NOTE | 2021-08-12 09:24 | Tele-ICU Progress Note ---
Subjective Date Seen by a Provider: Aug 12, 2021 Time Seen by a Provider: 09:21 Subjective/Events-last exam Doing better now on 6 lpm high flow, spont RR mid 20's On IV Cefepime, off IV Precedex @ Sepsis Event Evaluation Height, Weight, BMI Height: 5'0" Weight: 150lbs. oz. 68.035759jv; 30.78 BMI Method:Stated Focused Exam Lactate Level 08/10/21 03:55: Lactic Acid Level 1.66 Exam Exam Patient acknowledged, consented, and participated in this virtual visit which was conducted using real time audio/video Vital Signs Date Time Temp Pulse Resp B/P (MAP) Pulse Ox O2 Delivery O2 Flow Rate FiO2 08/12/21 07:50 35.9 08/12/21 07:00 90 08/12/21 06:06 High Flow N/C 8.00 08/12/21 06:00 97 15 94/76 100 High Flow N/C 10.00 08/12/21 05:00 101 37 110/82 100 High Flow N/C 10.00 08/12/21 04:00 105 37 146/86 96 High Flow N/C 10.00 08/12/21 04:00 100 High Flow N/C 8.00 08/12/21 03:04 High Flow N/C 10.00 08/12/21 03:00 98 37 134/97 100 Vapotherm 20.00 45.00 08/12/21 02:48 98 Vapotherm 20.00 45 08/12/21 02:00 96 20 106/85 94 Vapotherm 20.00 45.00 08/12/21 01:00 101 20 115/50 97 Vapotherm 20.00 45.00 08/12/21 01:00 104 08/12/21 00:00 105 35 104/84 96 Vapotherm 20.00 45.00 08/11/21 23:59 100 Vapotherm 20.00 35 08/11/21 23:00 101 26 101/67 96 Vapotherm 20.00 45.00 08/11/21 22:47 98 Vapotherm 20.00 45 08/11/21 22:00 103 22 110/80 90 Vapotherm 20.00 45.00 08/11/21 21:00 93 31 118/78 95 Vapotherm 20.00 45.00 08/11/21 20:00 100 Vapotherm 20.00 45 08/11/21 20:00 98 29 121/78 100 Vapotherm 20.00 45.00 08/11/21 19:45 97 Vapotherm 20.00 45 08/11/21 19:00 101 08/11/21 19:00 105 19 117/78 98 Vapotherm 20.00 45.00 08/11/21 18:00 97 41 101/79 97 Vapotherm 20.00 45.00 08/11/21 17:00 98 31 115/77 96 Vapotherm 20.00 45.00 08/11/21 16:00 96 21 91/67 96 Vapotherm 20.00 45.00 08/11/21 16:00 100 Vapotherm 20.00 45 08/11/21 15:13 96 Vapotherm 20.00 45 08/11/21 15:00 94 42 89/52 97 Vapotherm 20.00 45.00 08/11/21 14:00 99 42 85/60 96 Vapotherm 20.00 45.00 08/11/21 13:00 99 26 96 Vapotherm 20.00 45.00 08/11/21 13:00 104 08/11/21 12:00 108 17 109/74 98 Vapotherm 20.00 45.00 08/11/21 12:00 100 Vapotherm 20.00 45 08/11/21 12:00 36.8 08/11/21 11:17 95 Vapotherm 20.00 45 08/11/21 11:00 108 23 108/97 90 Vapotherm 20.00 45.00 08/11/21 10:00 105 37 104/70 96 Vapotherm 20.00 45.00 I & O 08/12/21 07:00 Intake Total 2550 ml Output Total 2675 ml Balance -125 ml Height & Weight Height: 5'0" Weight: 150lbs. oz. 68.935288ei; 30.78 BMI Method:Stated General Appearance: No Apparent Distress HEENT: Moist Mucous Membranes; No Scleral Icterus (R) Neck: Supple; No Lymphadenopathy (L), No Lymphadenopathy (R) Respiratory: Chest Non Tender, Lungs Clear, Normal Breath Sounds, No Accessory Muscle Use, No Respiratory Distress Cardiovascular: Regular Rate, Rhythm, No Edema, No Gallop, No JVD, No Murmur Capillary Refill: Less Than 3 Seconds Gastrointestinal: normal bowel sounds, non tender, soft, other (eating ok) Extremity: Normal Capillary Refill, No Pedal Edema Neurologic/Psychiatric: Alert, Oriented x3, No Motor/Sensory Deficits (Patient looking around the room well orient to voice and follow commands moving all extremities able to take in fluids without coughing or choking able to do this independently no focal neurologic deficits noted.) Skin: Normal Color, Warm/Dry Lymphatic: No Adenopathy Results Lab Laboratory Tests 08/10/21 13:45 08/10/21 22:40 08/11/21 03:30 08/11/21 15:31 08/12/21 03:40 Assessment/Plan Assessment/Plan STEMI, sp LAD stent Continues to improve await cardiology opinion of moving out continue present management Critical Care: Critically Ill Patient Time spent with patient (mins): 25 CELSO JENNINGS MD Aug 12, 2021 09:24
[2021-08-12] MEDS: LOSARTAN 25 MG (COZAAR) TAB PO SCH (10:23)
--- NOTE | 2021-08-12 11:03 | Progress Note - Hospitalist ---
Subjective HPI/CC On Admission Date Seen by Provider: Aug 12, 2021 Time Seen by Provider: 09:30 CC: Cardiac arrest HPI: This is a 41 yr old WF with a past medical history of alcohol use in addition to early family history of premature CAD and sudden cardiac . She presents to the ICU bed 9 after cardiac cath emergently when she presented to the ER by private vehicle. She was found to have ventricular tachycardia status post multiple shocks and now remains on aggressive pressure therapy. Temperature was low overnight and maintained on the ventilator. We will check her neurological status when she is able to be weaned off the ventilator. Overall poor prognosis given her ejection fraction of 15%. Subjective/Events-last exam Patient voices no complaints. She asked if her and brother were still out on the torres which they indeed were as they had stepped out while she was receiving a sponge bath. There is still some baseline confusion and some mild intermittent agitation worse at night but the patient has been easily redirected per nursing staff. She denies chest pain or shortness of breath. Focused Exam Lactate Level 08/10/21 03:55: Lactic Acid Level 1.66 Objective Exam Vital Signs Vital Signs Date Time Temp Pulse Resp B/P (MAP) Pulse Ox O2 Delivery O2 Flow Rate FiO2 08/12/21 10:00 95 22 112/83 100 High Flow N/C 8.00 08/12/21 07:50 35.9 08/12/21 02:48 45 Capillary Refill : Less Than 3 Seconds General Appearance: No Apparent Distress Respiratory: Chest Non Tender, Lungs Clear, Normal Breath Sounds, No Accessory Muscle Use, No Respiratory Distress Cardiovascular: Regular Rate, Rhythm, No Edema, No Gallop, No JVD, No Murmur, Normal Peripheral Pulses Extremity: Normal Capillary Refill, Normal Inspection, Normal Range of Motion, Non Tender, No Calf Tenderness, No Pedal Edema Results/Procedures Lab Laboratory Tests 08/11/21 15:31 08/12/21 03:40 Patient resulted labs reviewed. Imaging: Reviewed Imaging Report Assessment/Plan Assessment and Plan Assess & Plan/Chief Complaint Cardiac arrest and subsequent cardiogenic shock due to acute anterolat [place] - card cath of 08/07/21: mid-vessel occlusion of LAD (treated with primary angioplasty and stenting with SkyPoint 2.5x33 stent), 60-70% prox stenosis of RCA, LVEDP 39 mmHg, LVEF 25%, ant-lat and apical hypokinesis to akinesis - echo on 08/08/21: LVEF 20%, nathen-apical and nathen-lateral hypokinesis to akinesis Heart failure due to above compensating with significant improvement in cough. This morning she was still on high flow oxygen but Vapotherm had been discontinued with O2 saturation of 100% on 8 L discussed with nursing staff the need to continue to titrate oxygen lower with lowest level to maintain saturations at 92% or higher. Anoxic encephalopathy significant improvement per family. Critical Care Critically Ill Patient SOCRATES TRAMMELL MD Aug 12, 2021 11:03
[2021-08-12] MEDS: ENOXAPARIN 40 MG/0.4 ML (LOVENOX) SYR SC SCH (11:46)
--- NOTE | 2021-08-12 15:57 | Progress Note - Cardiology ---
Cardiology SOAP Progress Note Subjective: No cp or palp or syncope or shortness of breath No n/v/d No focal weakness Objective: I&O/Vital Signs 08/12/21 08/12/21 08/12/21 08/12/21 04:00 04:00 05:00 06:00 Pulse 105 101 97 Resp 37 37 15 B/P (MAP) 146/86 110/82 94/76 Pulse Ox 100 96 100 100 O2 Delivery High Flow N/C High Flow N/C High Flow N/C High Flow N/C O2 Flow Rate 8.00 10.00 10.00 10.00 08/12/21 08/12/21 08/12/21 08/12/21 06:06 07:00 07:00 07:50 Temp 35.9 Pulse 90 91 Resp 29 B/P (MAP) 100/77 Pulse Ox 99 O2 Delivery High Flow N/C High Flow N/C O2 Flow Rate 8.00 8.00 08/12/21 08/12/21 08/12/21 08/12/21 08:00 08:00 09:00 10:00 Pulse 87 109 95 Resp 29 28 22 B/P (MAP) 106/71 111/82 112/83 Pulse Ox 100 99 96 100 O2 Delivery High Flow N/C High Flow N/C High Flow N/C High Flow N/C O2 Flow Rate 8.00 8.00 8.00 8.00 08/12/21 08/12/21 08/12/21 08/12/21 11:00 11:54 12:00 12:00 Temp 36.8 Pulse 94 86 Resp 27 B/P (MAP) 111/74 108/72 Pulse Ox 98 97 97 O2 Delivery High Flow N/C High Flow N/C High Flow N/C O2 Flow Rate 8.00 4.00 8.00 08/12/21 08/12/21 08/12/21 08/12/21 13:00 13:00 14:00 15:00 Pulse 92 85 89 93 Resp 27 32 B/P (MAP) 109/70 117/67 112/74 Pulse Ox 97 96 98 O2 Delivery High Flow N/C High Flow N/C High Flow N/C O2 Flow Rate 8.00 8.00 8.00 08/12/21 00:00 Intake Total 1300 ml Output Total 1975 ml Balance -675 ml Weight (Pounds): 150 Weight (Calculated Kilograms): 68.204555 Constitutional: AAO x 3, well-developed, well-nourished, other Respiratory: No accessory muscle use; other (on mech vent) Cardiovascular: regular rate-rhythm, S1 and S2, systolic murmur (soft LIS at card basee) Gastrointestional: soft, audible bowel sounds Extremities: No clubbing, No cyanosis, No significant edema Neurologic/Psychiatric: other (awake, alert, appropriate; moving all extremities) Skin: No rash, No ulcerations Results/Procedures: Labs Laboratory Tests 08/11/21 17:39: Glucometer 116H 08/12/21 00:37: Glucometer 139H 08/12/21 03:40: White Blood Count 8.8, Red Blood Count 3.19L, Hemoglobin 9.8L, Hematocrit 30L, Mean Corpuscular Volume 93, Mean Corpuscular Hemoglobin 31, Mean Corpuscular Hemoglobin Concent 33, Red Cell Distribution Width 12.1, Platelet Count 253, Mean Platelet Volume 9.6, Immature Granulocyte % (Auto) 1, Neutrophils (%) (Auto) 80H, Lymphocytes (%) (Auto) 13, Monocytes (%) (Auto) 5, Eosinophils (%) (Auto) 1, Basophils (%) (Auto) 0, Neutrophils # (Auto) 7.0, Lymphocytes # (Auto) 1.2, Monocytes # (Auto) 0.4, Eosinophils # (Auto) 0.1, Basophils # (Auto) 0.0, Immature Granulocyte # (Auto) 0.0, Sodium Level 143, Potassium Level 3.7, Chloride Level 110H, Carbon Dioxide Level 20L, Anion Gap 13, Blood Urea Nitrogen 7, Creatinine 0.48L, Estimat Glomerular Filtration Rate 123, BUN/Creatinine R atio 15, Glucose Level 111H, Calcium Level 7.6L, Phosphorus Level 2.9, Magnesium Level 2.0 08/12/21 11:48: Glucometer 89 Microbiology 08/07/21 Urine Culture - Final, Complete NO GROWTH 08/07/21 Blood Culture - Preliminary, Resulted No growth 08/07/21 Gram Stain - Final, Complete 08/07/21 Sputum Culture - Final, Complete Usual upper respiratory kimberly Laboratory Tests 08/10/21 22:40 08/11/21 03:30 08/11/21 15:31 08/12/21 03:40 A/P: Assessment: Cardiac arrest and subsequent cardiogenic shock due to acute anterolat [place] - card cath of 08/07/21: mid-vessel occlusion of LAD (treated with primary angioplasty and stenting with SkyPoint 2.5x33 stent), 60-70% prox stenosis of RCA, LVEDP 39 mmHg, LVEF 25%, ant-lat and apical hypokinesis to akinesis - echo on 08/08/21: LVEF 20%, nathen-apical and nathen-lateral hypokinesis to akinesis Ac resp failure - improving Cough: CHF and/or intubation-related and/or OSMEL-inhib related - improving Plan: * Increase ambulation * Monitor labs and replace electrolytes * Repeat echo JACKELYN BROWN MD [facility] Aug 12, 2021 15:57
[2021-08-12 19:40] VITALS: BP 106/72
[2021-08-13] VITALS (7 sets, daily range): BP systolic 93–122; BP diastolic 55–69
[2021-08-13] MEDS: inSUlin ASPART (NovoLOG) 1 UNIT/0.01 ML (CHARGE PER UNIT) SC SCH ×5 (00:46→23:47)
[2021-08-13 05:30] LABS: BASOPHILS % (AUTO) 0 % (0-10); EOSINOPHILS # (AUTO) 0.3 10^3/uL (0.0-0.3); EOSINOPHILS % (AUTO) 4 % (0-10); HEMATOCRIT 29 % (35-52); HEMOGLOBIN 9.6 g/dL (11.5-16.0); LYMPHOCYTES # (AUTO) 1.3 10^3/uL (1.0-4.0); LYMPHOCYTES % (AUTO) 17 % (12-44); MEAN CORPUSCULAR HEMOGLOBIN 31 pg (25-34); MEAN CORPUSCULAR HGB CONC 33 g/dL (32-36); MEAN CORPUSCULAR VOLUME 94 fL (80-99); MEAN PLATELET VOLUME 9.5 fL (9.0-12.2); MONOCYTES # (AUTO) 0.4 10^3/uL (0.0-1.0); MONOCYTES % (AUTO) 6 % (0-12); NEUTROPHILS # (AUTO) 5.5 10^3/uL (1.8-7.8); NEUTROPHILS % (AUTO) 72 % (42-75); PLATELET COUNT 248 10^3/uL (130-400); WHITE BLOOD COUNT 7.7 10^3/uL (4.3-11.0)
[2021-08-13 05:40] LABS: POTASSIUM 3.2 MMOL/L (3.6-5.0)
[2021-08-13 05:41] LABS: CALCIUM 7.7 MG/DL (8.5-10.1)
[2021-08-13 05:45] LABS: PHOSPHORUS 2.3 MG/DL (2.3-4.7)
[2021-08-13 05:46] LABS: CREATININE SERUM 0.5 MG/DL (0.60-1.30)
[2021-08-13 05:48] LABS: MAGNESIUM 1.7 MG/DL (1.6-2.4)
[2021-08-13] MEDS: POTASSIUM CL 10MEQ/50ML IVPB 50 ML IV SCH (06:52)
[2021-08-13] MEDS: MAGNESIUM 1 GM/100 ML IVPB 100 ML IV SCH (06:52)
[2021-08-13] MEDS: EPINEPHrine 1 MG INJECTION 4 MG in NS (IVPB) 246 ML IV SCH ×2 (06:52→17:08)
[2021-08-13] MEDS ORDERED: KCL 20 MEQ TAB (K-DUR) PO ONE ×3 (07:00→09:30)
[2021-08-13] MEDS: KCL 20 MEQ TAB (K-DUR) PO SCH (07:01)
--- NOTE | 2021-08-13 09:23 | Progress Note - Cardiology ---
Cardiology SOAP Progress Note Subjective: Sitting up in recliner at the bedside Family x 2 at the bedside C/O ACW soreness No c/o SOB or palpitations Ambulated in halls yesterday with assist Objective: I&O/Vital Signs 08/13/21 08/14/21 08/14/21 08/14/21 20:55 00:14 01:31 04:26 Temp 36.4 36.6 Pulse 91 89 82 Resp 18 18 B/P (MAP) 91/61 (71) 93/61 (72) Pulse Ox 95 92 92 O2 Delivery Room Air Room Air High Flow N/C O2 Flow Rate 1.00 08/14/21 08/14/21 08/14/21 05:57 07:13 07:19 Temp 36.6 Pulse 92 93 Resp 20 B/P (MAP) 101/62 (75) 111/75 (87) Pulse Ox 87 99 O2 Delivery Room Air High Flow N/C O2 Flow Rate 1.00 08/14/21 00:00 Intake Total 770 ml Balance 770 ml Weight (Pounds): 150 Weight (Calculated Kilograms): 68.542270 Constitutional: AAO x 3, well-developed, well-nourished Respiratory: No accessory muscle use; [facility] Cardiovascular: regular rate-rhythm, S1 and S2, systolic murmur (soft LIS at card basee) Gastrointestional: soft, audible bowel sounds Extremities: No clubbing, No cyanosis, No significant edema Neurologic/Psychiatric: other (awake, alert, appropriate; moving all extremities) Skin: No rash, No ulcerations Results/Procedures: Labs Laboratory Tests 08/13/21 11:22: Glucometer 126H 08/13/21 17:20: Glucometer 95 08/13/21 23:40: Glucometer 117H 08/14/21 03:00: Sodium Level 141, Potassium Level 4.0, Chloride Level 108H, Carbon Dioxide Level 21, Anion Gap 12, Blood Urea Nitrogen 8, Creatinine 0.51L, Estimat Glomerular Filtration Rate 122, BUN/Creatinine Ratio 16, Glucose Level 93, Calcium Level 8.1L, Phosphorus Level 3.2, Magnesium Level 1.6 08/14/21 04:34: White Blood Count 8.6, Red Blood Count 3.23L, Hemoglobin 10.1L, Hematocrit 30L, Mean Corpuscular Volume 94, Mean Corpuscular Hemoglobin 31, Mean Corpuscular Hemoglobin Concent 33, Red Cell Distribution Width 12.2, Platelet Count 283, Mean Platelet Volume 9.1, Immature Granulocyte % (Auto) 1, Neutrophils (%) (Auto) 63, Lymphocytes (%) (Auto) 23, Monocytes (%) (Auto) 7, Eosinophils (%) (Auto) 7, Basophils (%) (Auto) 1, Neutrophils # (Auto) 5.5, Lymphocytes # (Auto) 1.9, Monocytes # (Auto) 0.6, Eosinophils # (Auto) 0.6H, Basophils # (Auto) 0.0, Immature Granulocyte # (Auto) 0.0 Microbiology 08/07/21 Urine Culture - Final, Complete NO GROWTH 08/07/21 Blood Culture - Preliminary, Resulted No growth 08/07/21 Gram Stain - Final, Complete 08/07/21 Sputum Culture - Final, Complete Usual upper respiratory kimberly A/P: Assessment: Cardiac arrest and subsequent cardiogenic shock due to acute anterolat [place] - card cath of 08/07/21: mid-vessel occlusion of LAD (treated with primary angioplasty and stenting with SkyPoint 2.5x33 stent), 60-70% prox stenosis of RCA, LVEDP 39 mmHg, LVEF 25%, ant-lat and apical hypokinesis to akinesis - echo on 08/08/21: LVEF 20%, nathen-apical and nathen-lateral hypokinesis to akinesis Ac resp failure - improving Cough: CHF and/or intubation-related and/or OSMEL-inhib related - improving Plan: * Increase ambulation * Monitor labs and replace electrolytes * Repeat echo today KIRT OLIVER Aug 13, 2021 09:23
[2021-08-13] MEDS: ASPIRIN 81 MG CHEW (CHILDREN'S ASA) PO SCH (09:29)
[2021-08-13] MEDS: PANTOPRAZOLE 40 MG (PROTONIX) VIAL IV SCH (09:30)
[2021-08-13] MEDS: CLOPIDOGREL 75 MG (PLAVIX) TABLET PO SCH (09:32)
[2021-08-13] MEDS: SPIRONOLACTONE 25 MG (ALDACTONE) TAB PO SCH (09:34)
--- NOTE | 2021-08-13 09:39 | Physical Therapy Evaluation ---
PT Evaluation-General Medical Diagnosis Admission Date Aug 07, 2021 at 14:26 Medical Diagnosis: STEMI/unresponsive Onset Date: Aug 07, 2021 Therapy Diagnosis Therapy Diagnosis: generalized weakness/debility Height/Weight Height (Feet): 5 Height (Inches): 0 Weight (Pounds): 150 Precautions Precautions/Isolations: Fall Prevention Referral Physician: Herman Reason for Referral: Evaluation/Treatment Medical History Pertinent Medical History: Smoking Current History POV secondary to unresponsive/s/p STEMI with cardiogenic shock/EF 15% Reviewed History: Yes Social History Home: Single Level Current Living Status: Other Family Prior Prior Level of Function SCALE: Activities may be completed with or without assistive devices. 8-Qdiycqavol-guwvvni completes the activity by him/herself with no assistance from a helper. 5-Set-up or Clean-up Assistance-helper sets up or cleans up; patient completes activity. [place] assists only prior to or following the activity. 4-Supervision or Touching Assistance-helper provides verbal cues and/or touching/steadying and/or contact guard assistance as patient completes activity. Assistance may be provided throughout the activity or intermittently. 3-Partial/Moderate Assistance-helper does LESS THAN HALF the effort. [place] lifts, holds or supports trunk or limbs, but provides less than half the effort. 2-Substantial/Maximal Assistance-helper does MORE THAN HALF the effort. [place] lifts or holds trunk or limbs and provides more than half the effort. 4-Yetpounhl-fcvrro does ALL the effort. Patient does none of the effort to complete the activity. Or, the assistance of 2 or more helpers is required for the patient to complete the activity. If activity was not attempted, code reason: 7-Patient Refused. 9-Not Applicable-not attempted and the patient did not perform the activity before the current illness, exacerbation or injury. 10-Not Attempted due to Environmental Limitations-(lack of equipment, weather restraints, etc.). 88-Not Attempted due to Medical Conditions or Safety Concerns. Bed Mobility: 6 Transfers (B,C,W/C): 6 Gait: 6 Stairs: 6 Indoor Mobility (Ambulation): Independent Stairs: Independent Prior Devices Use: None PT Evaluation-Current Subjective Patient agrees to PT. Objective Patient Orientation: Normal For Age Attachments: Oxygen, IV ROM/Strength ROM Lower Extremities bilateral LE WFL Strength Upper Extremities 3+/5 grossly bilateral LE Integumentary/Posture Bowel Incontinence: No Bladder Incontinence: No Posture WFL Neuromuscular (Tone, Coordination, Reflexes) diminished coordination due to length of hospital stay resulting in weakness Sensory Vision: Functional Hearing: Functional Transfers Lying to Sitting/Side of Bed(Q: 6 Sit to Stand (QC): 3 Chair/Iwr-vm-Sxfpp Xfer(QC): 3 Gait Does the Patient Walk?: Yes Mode of Locomotion: Walk Anticipated Mode of Locomotion: Walk Walk 10 feet (QC): 3 Walk 50 ft with 2 Turns(QC): 3 Walk 150 ft (QC): 3 Distance: 250' Gait Assistive Device: FWW Comments/Gait Description very unsteady gait with PT assist for safety Balance Sitting Static: Normal Sitting Dynamic: Normal Standing Static: Fair Standing Dynamic: Fair (fair-) Assessment/Needs 41 y.o. female, will be seen short term to address functional strength and mobility to improve current LOF to safely return to home with family at maximum LOF. Patient is made aware of safety concerns and to not be up independently or with family in room. Rehab Potential: Guarded PT [facility] Goals It Service Manager Goals PT [facility] Goals Time Frame: August 25, 2021 Roll Left & Right (QC): 6 Sit to Lying (QC): 6 Lying-Sitting on Side/Bed(QC): 6 Sit to Stand (QC): 6 Chair/Bhl-qx-Udtcf Xfer(QC): 6 Toilet Transfer (QC): 6 Walk 10 feet (QC): 6 Walk 50ft with 2 Turns (QC): 6 Walk 150 ft (QC): 6 PT Plan Problem List Problem List: Activity Tolerance, Functional Strength, Safety, Balance, Gait, Transfer Treatment/Plan Treatment Plan: Continue Plan of Care Treatment Plan: Education, Functional Activity Heidi, Functional Strength, Gait, Safety, Therapeutic Exercise, Transfers Treatment Duration: August 25, 2021 Frequency: 6 times per week Estimated Hrs Per Day: .25 hour per day Patient and/or Family Agrees t: Yes Time/GCodes Time In: 814 Time Out: 826 Total Billed Treatment Time: 12 Total Billed Treatment 1 visit EVModC 12 min HINA PLASCENCIA PT Aug 13, 2021 09:39
--- NOTE | 2021-08-13 09:54 | Progress Note - Cardiology ---
Cardiology SOAP Progress Note Subjective: No cp or palp or syncope or shortness of breath Some gen malaise No n/v/d Objective: I&O/Vital Signs 08/12/21 08/13/21 08/13/21 08/13/21 22:38 00:40 01:00 04:53 Temp 36.6 36.8 Pulse 89 100 67 Resp 17 18 B/P (MAP) 102/69 (80) 93/62 (72) Pulse Ox 98 98 91 O2 Delivery High Flow N/C Nasal Cannula Nasal Cannula O2 Flow Rate 4.00 3.50 3.50 08/13/21 08/13/21 08/13/21 07:31 07:47 08:14 Temp 36.7 36.7 Pulse 83 88 57 Resp 18 18 B/P (MAP) 97/63 (74) 122/64 (83) Pulse Ox 98 96 O2 Delivery Nasal Cannula Room Air O2 Flow Rate 3.50 08/13/21 00:00 Intake Total 870 ml Output Total 250 ml Balance 620 ml Weight (Pounds): 150 Weight (Calculated Kilograms): 68.219982 Constitutional: AAO x 3, well-developed, well-nourished Respiratory: No accessory muscle use; other (on mech vent) Cardiovascular: regular rate-rhythm, S1 and S2, systolic murmur (soft LIS at card basee) Gastrointestional: soft, audible bowel sounds Extremities: No clubbing, No cyanosis, No significant edema Neurologic/Psychiatric: other (awake, alert, appropriate; moving all extr emities) Skin: No rash, No ulcerations Results/Procedures: Labs Laboratory Tests 08/12/21 11:48: Glucometer 89 08/12/21 17:51: Glucometer 89 08/13/21 00:04: Glucometer 101 08/13/21 05:25: White Blood Count 7.7, Red Blood Count 3.09L, Hemoglobin 9.6L, Hematocrit 29L, Mean Corpuscular Volume 94, Mean Corpuscular Hemoglobin 31, Mean Corpuscular Hemoglobin Concent 33, Red Cell Distribution Width 12.3, Platelet Count 248, M saúl Platelet Volume 9.5, Immature Granulocyte % (Auto) 1, Neutrophils (%) (Auto) 72, Lymphocytes (%) (Auto) 17, Monocytes (%) (Auto) 6, Eosinophils (%) (Auto) 4, Basophils (%) (Auto) 0, Neutrophils # (Auto) 5.5, Lymphocytes # (Auto) 1.3, Monocytes # (Auto) 0.4, Eosinophils # (Auto) 0.3, Basophils # (Auto) 0.0, Immature Granulocyte # (Auto) 0.1, Sodium Level 141, Potassium Level 3.2L, Chloride Level 109H, Carbon Dioxide Level 20L, Anion Gap 12, Blood Urea Nitrogen 8, Creatinine 0.50L, Estimat Glomerular Filtration Rate 122, BUN/Creatinine Ratio 16, Glucose Level 110H, Calcium Level 7.7L, Phosphorus Level 2.3, Magnesium Level 1.7 Microbiology 08/07/21 Urine Culture - Final, Complete NO GROWTH 08/07/21 Blood Culture - Preliminary, Resulted No growth 08/07/21 Gram Stain - Final, Complete 08/07/21 Sputum Culture - Final, Complete Usual upper respiratory kimberly Laboratory Tests 08/11/21 15:31 08/12/21 03:40 08/13/21 05:25 A/P: Assessment: Cardiac arrest and subsequent cardiogenic shock due to acute anterolat MA - card cath of 08/07/21: mid-vessel occlusion of LAD (treated with primary angioplasty and stenting with SkyPoint 2.5x33 stent), 60-70% prox stenosis of RCA, LVEDP 39 mmHg, LVEF 25%, ant-lat and apical hypokinesis to akinesis - echo on 08/08/21: LVEF 20%, nathen-apical and nathen-lateral hypokinesis to akinesis Ac resp failure - improving Cough: CHF and/or intubation-related and/or OSMEL-inhib related - improving Plan: * Increase ambulation * Replenish K * Monitor labs * Repeat echo today * PT/OT JACKELYN BROWN MD FACP [facility] Aug 13, 2021 09:54
[2021-08-13] MEDS: ENOXAPARIN 40 MG/0.4 ML (LOVENOX) SYR SC SCH (10:16)
[2021-08-13] MEDS: NS IV 1000 ML 1,000 ML IV SCH ×2 (10:23→14:18)
--- NOTE | 2021-08-13 10:23 | ST Dysphagia Evaluation ---
Speech Evaluation-General Medical Diagnosis STEMI/unresponsive Onset Date: Aug 07, 2021 Therapy Diagnosis Therapy Diagnosis: Suspected Mild Pharyngeal Dysphagia Precautions Precautions: Fall, Aspiration Precautions/Isolations: Aspiration, Fall Prevention, Standard Precautions Referral Referring Physician: Dr. Kathia Bernard Reason for Referral: Evaluation/Treatment Medical History Pertinent Medical History: Smoking Current History The patient is a 41 year old female with an unknown past medical history, who p resented to the ED by POV and was found to be in cardiac arrest. A code was ran for her in the ED, during which she was intubated. The patient remained intubated for approximately two days. Reviewed History: Yes Social History Current Living Status: Other Family Speech PLF/Current-Dysphagia Prior Level of Function The patient reported consumption of a regular diet with thin liquids at home. Per patient's family member, "She's ate donuts and breakfast with milk just now." The patient denied prior concerns regarding her swallowing function. Subjective The patient was seated upright in her recliner, awake and alert upon entrance to the room by the clinician. The patient greeted the clinician appropriately and was agreeable to participation in the clinical bedside swallowing evaluation. The patient's family member remains at bedside. The patient reported tolerance of her current diet consistency (regular consistency with thin liquids). The patient reported she does not cough following the swallow or during P.O. intake, however, once she has finished eating, "it throws me into coughing." The clinician attempted to clarify the information provided and the patient stated "there is just so much phlegm." Cognitive Status Patient Orientation: Person, Place, Situation Oral Motor Skills Dentition: Natural Current Food Consistancy: Regular, Thin Liquids Ability to Follow Directions: Good Oral Expression Ability: Mild Impairment Voice Voice Phonatory-Based Quality: Breathy, Weak Voice Pitch: Normal Voice Loudness: Mildly Soft/Quiet Face Facial Symmetry: Symmetrical Oral-Facial Assessment Oral-Facial Dentition: Normal Labial Seal Description: Normal Smile: Normal Puff Cheeks: Normal Lingual Protrusion: Normal Lingual ROM: Normal Lingual Strength: Normal Volitional Dry Swallow: Yes Voluntary Cough: Yes Can Clear Throat Volitionally: Yes Productive Cough: Yes Productive Throat Clear: Yes Dysphagia Evaluation Consistencies Presented: Regular, Thin Liquid The patient did not demonstrate characteristics of oral dysphagia on this date. The patient appeared to trigger a timely pharyngeal swallow. Laryngeal elevation was present to palpation. The patient was provided thin liquid via single and consecutive straw drink, puree, and solid consistencies. The patient demonstrated a subtle throat clear following large, multiple swallows of thin liquid. The patient does not display s/s of suspected aspiration with small, single straw sips, puree, or solid consistencies. The patient's vocal quality remained breathy, yet clear following each P.O. trial. Dietary Recommendations: Regular Liquid Recommendations: Thin Recommendations: - Regular consistency diet with thin liquids, as tolerated. - Fully upright and alert for P.O. intake. - Small, single bites and sips. - Remain upright for 30 minutes following P.O. intake. - Monitor for s/s of suspected aspiration with P.O. intake. If demonstrated, contact speech pathology. The results and recommendations were discussed with the patient and the patient's daughter who verbalized comprehension. The patient's RN stated the patient has tolerated medication well at this point and agreed with the clinician's recommendations. Dysphagia Evaluation Summary The patient demonstrated suspected pharyngeal dysphagia characterized by decreased airway protection in the presence of bolus material. The patient's vocal quality appears raspy and breathy which leads the clinician to believe complete vocal closure may not be occurring. The reduced vocal cord function may contribute to poor airway protection during the swallow response. S/s of suspected aspiration were not demonstrated with single sips of thin liquid, puree, or solid. Following completion of the evaluation and during education regarding the swallow function, the patient demonstrated a rigorous cough, expelling phlegm into a tissue. Food or liquid were not present in the phlegm and it was not colored consistent with P.O. items. The patient was encouraged to remain upright following meals to ensure retrograde flow was not occurring. Speech Short Term Goals Short Term Goals Short Term Goals 1. The patient, staff, and family will follow safe swallowing strategies with 90% accuracy, independently. Time Frame-STG: Five Days. Speech Manager Legal Goals Residential Goals 1. The patient will tolerate the least restrictive diet without s/s of suspected aspiration. Time Frame: One Week. Speech-Plan Treatment Plan Speech Therapy Treatment Plan: Continue Plan of Care Treatment Duration: August 20, 2021 Frequency: 2 times per week Estimated Hrs Per Day: .25 hour per day Rehab Potential: Guarded Safety Risks/Education Teaching Recipient: Patient, Family Teaching Methods: Discussion Response to Teaching: Reinforcement Needed Education Topics Provided: Results of BSE, Safe Swallowing Strategies Time Speech Therapy Time In: 09:55 Speech Therapy Time Out: 10:15 Total Billed Time: 20 Billed Treatment Time 1, YANIRA CHRIS [facility] ST Aug 13, 2021 10:23
--- NOTE | 2021-08-13 11:13 | Progress Note ---
Subjective Subjective/Events-last exam Patient states that she is feeling better this AM. She is still having some slowing of her speech but it is appropriate. Denies any compliants at this time. States that she was up with PT and she felt weak but good, walked w/o chest pain and only mild shortness of breath. Review of Systems General: Fatigue, Malaise Pulmonary: Dyspnea, Cough Cardiovascular: No: Chest Pain, Palpitations Neurological: Weakness, Incoordination Objective Exam Last Set of Vital Signs Vital Signs Date Time Temp Pulse Resp B/P (MAP) Pulse Ox O2 Delivery O2 Flow Rate FiO2 08/13/21 08:14 36.7 57 18 122/64 (83) 96 Room Air 08/13/21 07:31 3.50 08/12/21 02:48 45 Capillary Refill : Less Than 3 Seconds I&O Intake and Output 08/13/21 00:00 Intake Total 1320 ml Output Total 876 ml Balance 444 ml Intake Oral 1270 ml IV Total 50 ml Output Urine Total 875 ml Stool Total 1 ml # Voids 1 # Bowel Movements 1 General: Alert, Oriented X3, Other (slowed speech) Lungs: Clear to Auscultation, Normal Air Movement Heart: Regular Rate, No Murmurs Abdomen: Soft, No Tenderness, No Masses Extremities: No Edema, No Tenderness/Swelling Neuro: Cranial Nerves 3-12 NL Results/Procedures Lab Laboratory Tests 08/12/21 11:48: Glucometer 89 08/12/21 17:51: Glucometer 89 08/13/21 00:04: Glucometer 101 08/13/21 05:25: White Blood Count 7.7, Red Blood Count 3.09L, Hemoglobin 9.6L, Hematocrit 29L, Mean Corpuscular Volume 94, Mean Corpuscular Hemoglobin 31, Mean Corpuscular Hemoglobin Concent 33, Red Cell Distribution Width 12.3, Platelet Count 248, Mean Platelet Volume 9.5, Immature Granulocyte % (Auto) 1, Neutrophils (%) (Auto) 72, Lymphocytes (%) (Auto) 17, Monocytes (%) (Auto) 6, Eosinophils (%) (Auto) 4, Basophils (%) (Auto) 0, Neutrophils # (Auto) 5.5, Lymphocytes # (Auto) 1.3, Monocytes # (Auto) 0.4, Eosinophils # (Auto) 0.3, Basophils # (Auto) 0.0, Immature Granulocyte # (Auto) 0.1, Sodium Level 141, Potassium Level 3.2L, Chloride Level 109H, Carbon Dioxide Level 20L, Anion Gap 12, Blood Urea Nitrogen 8, Creatinine 0.50L, Estimat Glomerular Filtration Rate 122, BUN/Creatinine Ratio 16, Glucose Level 110H, Calcium Level 7.7L, Phosphorus Level 2.3, Magnesium Level 1.7 Microbiology 08/07/21 Urine Culture - Final, Complete NO GROWTH 08/07/21 Blood Culture - Preliminary, Resulted No growth 08/07/21 Gram Stain - Final, Complete 08/07/21 Sputum Culture - Final, Complete Usual upper respiratory kimberly Assessment/Plan Assessment/Plan (1) STEMI (ST elevation myocardial infarction) Status: Acute Assessment & Plan: 08/13: Dr Rojas managing, appreciate recommendations, Repeat echo today, 08/08 EF 15-20%, Continue DAP therapy, BB, ARB Qualifiers: Qualified Codes: I21.3 - ST elevation (STEMI) myocardial infarction of unspecified site (2) Cardiogenic shock Status: Resolved (3) Sudden cardiac arrest Status: Acute (4) Acute systolic (congestive) heart failure Status: Acute (5) Encephalopathy Status: Acute Assessment & Plan: 08/13: Mental status improving, Normal CT scan, possible anoxic brain injury due to cardiac arrest, will continue to monitor (6) DVT prophylaxis Assessment & Plan: - RAEGAN Sands MD Aug 13, 2021 11:13
[2021-08-13] MEDS ORDERED: NORG-41 PO (11:14)
[2021-08-13] MEDS ORDERED: ATOR80TA76 PO (11:14)
[2021-08-13] MEDS ORDERED: ACET-2267 PO (11:15)
--- NOTE | 2021-08-13 11:17 | Occupational Therapy Eval ---
OT Evaluation-General/PLF Medical Diagnosis Admission Date Aug 07, 2021 at 14:26 Medical Diagnosis: STEMI/unresponsive Onset Date: Aug 07, 2021 Therapy Diagnosis Therapy Diagnosis: reduced adl status Height/Weight Height (Feet): 5 Height (Inches): 0 Weight (Pounds): 150 Precautions Precautions/Isolations: Fall Prevention, Standard Precautions Referral Physician: Herman Referral Reason: Evaluation/Treatment Medical History Pertinent Medical History: Smoking Current History Pt admit secondary to becoming unresponsive s/p STEMI with cardiogenic shock/EF 15% Per patient, she lives in a single story home with 2 teenage/adult daughters. Pt was indep with adls and iadls prior to admission. 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 Social History Home: Single Level Current Living Status: Children ADL-Prior Level of Function SCALE: Activities may be completed with or without assistive devices. 4-Pkawjausfn-nokqhll completes the activity by him/herself with no assistance from a helper. 5-Set-up or Clean-up Assistance-helper sets up or cleans up; patient completes activity. Laverne assists only prior to or following the activity. 4-Supervision or Touching Assistance-helper provides verbal cues and/or touching/steadying and/or contact guard assistance as patient completes activity. Assistance may be provided throughout the activity or intermittently. 3-Partial/Moderate Assistance-helper does LESS THAN HALF the effort. Laverne lifts, holds or supports trunk or limbs, but provides less than half the effort. 2-Substantial/Maximal Assistance-helper does MORE THAN HALF the effort. Laverne lifts or holds trunk or limbs and provides more than half the effort. 3-Folkgjaqa-pdcpxt does ALL the effort. Patient does none of the effort to complete the activity. Or, the assistance of 2 or more helpers is required for the patient to complete the activity. If activity was not attempted, code reason: 7-Patient Refused. 9-Not Applicable-not attempted and the patient did not perform the activity before the current illness, exacerbation or injury. 10-Not Attempted due to Environmental Limitations-(lack of equipment, weather restraints, etc.). 88-Not Attempted due to Medical Conditions or Safety Concerns. Self Care: Independent Functional Cognition: Independent Drive Self: Yes OT Current Status Subjective Pt reports discomfort on L side of chest, mostly when coughing. Appearance Pt returned to supine in bed, all needs within reach, daughter in the room. Mental Status/Objective Patient Orientation: Person, Place, Situation Attachments: IV, Oxygen (3L) Current Hearing Aids: No Dentures/Partials: No Hand Dominance: Left Upper Extremity ROM WNL Upper Extremity Strength Fair medical staff credentialing coordinator, shoulders not tested secondary to chest pain ADL-Treatment Eating (QC): 6 (per clinical judgment) Oral Hygiene (QC): 5 Lower Body Dressing (QC): 4 On/Off Footwear (QC): 4 (supervision) Supine<>sit: SBA. Good sitting balance at EOB. Pt able to don/doff bilateral socks with supervision for safety. Sit<>stand: SBA. No c/o dizziness post positional changes. Pt able to stand and reach in multiple planes (with zero UE support) and slightly out of DANY with close SBA-CGA for safety. No LOB. She reports feeling more steady on feet then when she ambulated earlier in the day with the physical therapist. She declines need to toilet. Mild SOB notable post minimal activity. Education OT Patient Education: Energy conservation, Purpose of tx/functional activities, Safety issues, Transfer techniques Teaching Recipient: Patient, Family Teaching Methods: Discussion Response to Teaching: Verbalize Understanding, Return Demonstration OT V Belt Builder Goals Snf Goals Time Frame: August 20, 2021 Oral Hygiene (QC): 6 Toileting Hygiene (QC): 6 Shower/Bathe Self (QC): 5 Upper Body Dressing (QC): 5 Lower Body Dressing (QC): 5 On/Off Footwear (QC): 6 1=Demonstrate adherence to instructed precautions during ADL tasks. 2=Patient will verbalize/demonstrate understanding of assistive devices/modifications for ADL. 3=Patient will improve strength/tolerance for activity to enable patient to perform ADL's. OT Education/Plan Problem List/Assessment Assessment: Decreased Activ Tolerance, Decreased UE Strength, Impaired I ADL's, Impaired Self-Care Skills Discharge Recommendations Plan/Recommendations: Continue POC Therapy Discharge Recommendati: Post Acute OT (Home with family vs home with home health pending progess ) Treatment Plan/Plan of Care Treatment,Training & Education: Yes Patient would benefit from OT for education, treatment and training to promote independence in ADL's, mobility, safety and/or upper extremity function for A DL's. Plan of Care: ADL Retraining, Functional Mobility, Group Exercise/Act as Ind, UE Funct Exercise/Act Treatment Duration: August 20, 2021 Frequency: 3 times per week (3-5x/week) Estimated Hrs Per Day: .25 hour per day Rehab Potential: Fair Time/GCodes Start Time: 10:48 Stop Time: 11:00 Total Time Billed (hr/min): 12 Billed Treatment Time 1 visit Amelia Mckinley OT Aug 13, 2021 11:17
[2021-08-13] MEDS ORDERED: MULT9LIQ9 PO (11:19)
[2021-08-13] MEDS: LOSARTAN 25 MG (COZAAR) TAB PO SCH (12:03)
[2021-08-14] VITALS (7 sets, daily range): BP systolic 91–111; BP diastolic 56–75
[2021-08-14] MEDS: EPINEPHrine 1 MG INJECTION 4 MG in NS (IVPB) 246 ML IV SCH ×4 (01:49→19:17)
[2021-08-14 04:42] LABS: BASOPHILS % (AUTO) 1 % (0-10); EOSINOPHILS # (AUTO) 0.6 10^3/uL (0.0-0.3); EOSINOPHILS % (AUTO) 7 % (0-10); HEMATOCRIT 30 % (35-52); HEMOGLOBIN 10.1 g/dL (11.5-16.0); LYMPHOCYTES # (AUTO) 1.9 10^3/uL (1.0-4.0); LYMPHOCYTES % (AUTO) 23 % (12-44); MEAN CORPUSCULAR HEMOGLOBIN 31 pg (25-34); MEAN CORPUSCULAR HGB CONC 33 g/dL (32-36); MEAN CORPUSCULAR VOLUME 94 fL (80-99); MEAN PLATELET VOLUME 9.1 fL (9.0-12.2); MONOCYTES # (AUTO) 0.6 10^3/uL (0.0-1.0); MONOCYTES % (AUTO) 7 % (0-12); NEUTROPHILS # (AUTO) 5.5 10^3/uL (1.8-7.8); NEUTROPHILS % (AUTO) 63 % (42-75); PLATELET COUNT 283 10^3/uL (130-400); WHITE BLOOD COUNT 8.6 10^3/uL (4.3-11.0)
[2021-08-14 04:54] LABS: CALCIUM 8.1 MG/DL (8.5-10.1)
[2021-08-14 04:58] LABS: CREATININE SERUM 0.51 MG/DL (0.60-1.30); PHOSPHORUS 3.2 MG/DL (2.3-4.7)
[2021-08-14 05:00] LABS: MAGNESIUM 1.6 MG/DL (1.6-2.4)
[2021-08-14] MEDS: inSUlin ASPART (NovoLOG) 1 UNIT/0.01 ML (CHARGE PER UNIT) SC SCH ×4 (05:06→23:48)
[2021-08-14] MEDS: guaiFENesin/CODEINE (ROBITUSSIN AC) 10ML UDC PO PRN (07:40)
[2021-08-14] MEDS: PANTOPRAZOLE 40 MG (PROTONIX) VIAL IV SCH (08:50)
[2021-08-14] MEDS: ASPIRIN 81 MG CHEW (CHILDREN'S ASA) PO SCH (08:51)
[2021-08-14] MEDS: CLOPIDOGREL 75 MG (PLAVIX) TABLET PO SCH (08:53)
[2021-08-14] MEDS: SPIRONOLACTONE 25 MG (ALDACTONE) TAB PO SCH (08:53)
[2021-08-14] MEDS: LOSARTAN 25 MG (COZAAR) TAB PO SCH (08:53)
--- NOTE | 2021-08-14 08:54 | Progress Note - Cardiology ---
Cardiology SOAP Progress Note Subjective: In recliner at the bedside, lethargic (received IV Ativan for anxiety) Mother at the bedside Objective: I&O/Vital Signs 08/15/21 08/15/21 08/15/21 08/15/21 00:21 01:00 04:00 04:20 Temp 36.9 36.3 Pulse 88 82 78 88 Resp 18 18 B/P (MAP) 86/57 (67) 88/53 (65) 103/55 (71) Pulse Ox 93 93 O2 Delivery Room Air Room Air 08/15/21 08/15/21 08/15/21 07:00 07:58 08:19 Temp 37.0 Pulse 90 90 Resp 18 B/P (MAP) 105/61 (76) Pulse Ox 95 95 O2 Delivery Room Air Room Air O2 Flow Rate 0.00 08/15/21 00:00 Intake Total 780 ml Balance 780 ml Weight (Pounds): 150 Weight (Calculated Kilograms): 68.074050 Constitutional: AAO x 3 (lethargic this morning following IV Ativan this morning), well-developed, well-nourished Respiratory: No accessory muscle use; other (on mech vent) Cardiovascular: regular rate-rhythm, S1 and S2, systolic murmur (soft LIS at card basee) Gastrointestional: soft, audible bowel sounds Extremities: No clubbing, No cyanosis, No significant edema Neurologic/Psychiatric: other (awake, alert, appropriate; moving all extremities) Skin: No rash, No ulcerations Results/Procedures: Labs Laboratory Tests 08/14/21 11:59: Glucometer 113H 08/14/21 17:14: Glucometer 86 08/14/21 20:40: Glucometer 92 08/14/21 23:17: Glucometer 129H 08/15/21 04:20: White Blood Count 7.4, Red Blood Count 3.47L, Hemoglobin 10.7L, Hematocrit 32L, Mean Corpuscular Volume 93, Mean Corpuscular Hemoglobin 31, Mean Corpuscular Hemoglobin Concent 33, Red Cell Distribution Width 12.3, Platelet Count 274, Me an Platelet Volume 9.1, Immature Granulocyte % (Auto) 1, Neutrophils (%) (Auto) 62, Lymphocytes (%) (Auto) 25, Monocytes (%) (Auto) 8, Eosinophils (%) (Auto) 5, Basophils (%) (Auto) 0, Neutrophils # (Auto) 4.6, Lymphocytes # (Auto) 1.8, Monocytes # (Auto) 0.6, Eosinophils # (Auto) 0.4H, Basophils # (Auto) 0.0, Immature Granulocyte # (Auto) 0.1, Sodium Level 140, Potassium Level 4.1, Chloride Level 105, Carbon Dioxide Level 22, Anion Gap 13, Blood Urea Nitrogen 8, Creatinine 0.50L, Estimat Glomerular Filtration Rate 122, BUN/Creatinine Ratio 16, Glucose Level 87, Calcium Level 8.7, Phosphorus Level 4.6, Magnesium Level 1.7 Microbiology 08/07/21 Urine Culture - Final, Complete NO GROWTH 08/07/21 Blood Culture - Final, Complete No growth 08/07/21 Gram Stain - Final, Complete 08/07/21 Sputum Culture - Final, Complete Usual upper respiratory kimberly Laboratory Tests 08/14/21 03:00 08/14/21 04:34 08/15/21 04:20 A/P: Assessment: Cardiac arrest and subsequent cardiogenic shock due to acute anterolat [place] - card cath of 08/07/21: mid-vessel occlusion of LAD (treated with primary angioplasty and stenting with SkyPoint 2.5x33 stent), 60-70% prox stenosis of RCA, LVEDP 39 mmHg, LVEF 25%, ant-lat and apical hypokinesis to akinesis - echo on 08/08/21: LVEF 20%, nathen-apical and nathen-lateral hypokinesis to akinesis ICM - Life vest placement prior to discharge Ac resp failure - resolved Cough: CHF and/or intubation-related and/or OSMEL-inhib related - improving Plan: * Life Vest placement today * Cardiac rehab as an out pt * Continue PT/OT * Monitor labs * Discussed plan of care and discharge planning at length with mother at the bedside, answered questions KIRT OLIVER Aug 14, 2021 08:54
--- NOTE | 2021-08-14 09:55 | Physical Therapy Daily Note ---
PT Daily Note-Current Subjective Pt agrees to PT. Mental Status Patient Orientation: Normal For Age Attachments: Oxygen, IV Transfers SCALE: Activities may be completed with or without assistive devices. 0-Mxrctvpskw-mheappz completes the activity by him/herself with no assistance from a helper. 5-Set-up or Clean-up Assistance-helper sets up or cleans up; patient completes activity. [place] assists only prior to or following the activity. 4-Supervision or Touching Assistance-helper provides verbal cues and/or touching/steadying and/or contact guard assistance as patient completes activity. Assistance may be provided throughout the activity or intermittently. 3-Partial/Moderate Assistance-helper does LESS THAN HALF the effort. [place] lifts, holds or supports trunk or limbs, but provides less than half the effort. 2-Substantial/Maximal Assistance-helper does MORE THAN HALF the effort. [place] lifts or holds trunk or limbs and provides more than half the effort. 6-Clsjbzaiz-ohomcm does ALL the effort. Patient does none of the effort to complete the activity. Or, the assistance of 2 or more helpers is required for the patient to complete the activity. If activity was not attempted, code reason: 7-Patient Refused. 9-Not Applicable-not attempted and the patient did not perform the activity before the current illness, exacerbation or injury. 10-Not Attempted due to Environmental Limitations-(lack of equipment, weather restraints, etc.). 88-Not Attempted due to Medical Conditions or Safety Concerns. Roll Left & Right (QC): 4 Sit to Lying (QC): 4 Lying to Sitting/Side of Bed(Q: 4 Sit to Stand (QC): 4 Gait Training Does the Patient Walk?: Yes Distance: 400' Walk 10 feet (QC): 4 Walk 50 ft with 2 Turns(QC): 4 Walk 150 ft (QC): 4 Gait Persons Needed: 1 Gait Assistive Device: Cane Large Base Quad 2 episodes of slight unsteady gait with self correct Wheelchair Training Does the Pt Use a Wheelchair?: No Assessment Current Status: Good Progress Pt is motivated to get home and states she wants to get home soon. Pt's gait is better as she self corrects herself when unsteady. Pt laying in bed with all needs met, call light in hand. PT Hasher Operator Goals Hasher Operator Goals PT Hasher Operator Goals Time Frame: August 25, 2021 Roll Left & Right (QC): 6 Sit to Lying (QC): 6 Lying-Sitting on Side/Bed(QC): 6 Sit to Stand (QC): 6 Chair/Ege-iy-Simgo Xfer(QC): 6 Toilet Transfer (QC): 6 Walk 10 feet (QC): 6 Walk 50ft with 2 Turns (QC): 6 Walk 150 ft (QC): 6 PT Plan Treatment/Plan Treatment Plan: Continue Plan of Care Treatment Plan: Education, Functional Activity Heidi, Functional Strength, Gait, Safety, Therapeutic Exercise, Transfers Treatment Duration: August 25, 2021 Frequency: 6 times per week Estimated Hrs Per Day: .25 hour per day Patient and/or Family Agrees t: Yes Time/GCodes Time In: 915 Time Out: 925 Total Billed Treatment Time: 10 Total Billed Treatment 1, FA (10 min) HINA PLASCENCIA PT Aug 14, 2021 09:55
--- NOTE | 2021-08-14 10:18 | Occupational Ther Daily Note ---
OT Current Status-Daily Note Subjective Pt alert, lying in bed. Family present in room. Pt agrees to therapy. Mental Status/Objective Patient Orientation: Person, Place, Time, Situation Attachments: IV, Telemetry O2 sat on room air did drop to 89% but quickly elevated to 90% and above during session. Reported to nrsg. ADL-Treatment Pt agrees to shower. Pt did not have any LOB though appears slightly unsteady with ambulation and dynamic standing. Pt able to complete shower with SBA for safety using grabbars and shower bench. Pt able to don/doff socks by self after set up. Don/doffs hospital gown with assist only due to IV tubing. Set up donning lower body clothing. Independent standing at sink to complete oral care. Independent with toilet transfer and toileting. After therapy, pt lying in bed with call light/phone in reach. All needs met in room. Therapy Code Descriptions/Definitions Functional [place] Measure: 0=Not Assessed/NA 4=Minimal Assistance 1=Total Assistance 5=Supervision or Setup 2=Maximal Assistance 6=Modified [place] 3=Moderate Assistance 7=Complete IndependenceSCALE: Activities may be completed with or without assistive devices. 2-Oqudyryyvq-kgtanxe completes the activity by him/herself with no assistance from a helper. 5-Set-up or Clean-up Assistance-helper sets up or cleans up; patient completes activity. [place] assists only prior to or following the activity. 4-Supervision or Touching Assistance-helper provides verbal cues and/or touching/steadying and/or contact guard assistance as patient completes activity. Assistance may be provided throughout the activity or intermittently. 3-Partial/Moderate Assistance-helper does LESS THAN HALF the effort. [place] lifts, holds or supports trunk or limbs, but provides less than half the effort. 2-Substantial/Maximal Assistance-helper does MORE THAN HALF the effort. [place] lifts or holds trunk or limbs and provides more than half the effort. 2-Dtgvienxy-uzgvvg does ALL the effort. Patient does none of the effort to complete the activity. Or, the assistance of 2 or more helpers is required for the patient to complete the activity. If activity was not attempted, code reason: 7-Patient Refused. 9-Not Applicable-not attempted and the patient did not perform the activity before the current illness, exacerbation or injury. 10-Not Attempted due to Environmental Limitations-(lack of equipment, weather restraints, etc.). 88-Not Attempted due to Medical Conditions or Safety Concerns. Oral Hygiene (QC): 6 Shower/Bathe Self (QC): 4 (SBA) Upper Body Dressing (QC): 3 (Assist only due to IV tubing.) Lower Body Dressing (QC): 5 On/Off Footwear: 5 Toileting Hygiene (QC): 6 Toilet Transfer (QC): 6 OT Sound Equipment Mechanic Goals Nursing Home Goals Time Frame: August 20, 2021 Oral Hygiene (QC): 6 Toileting Hygiene (QC): 6 Shower/Bathe Self (QC): 5 Upper Body Dressing (QC): 5 Lower Body Dressing (QC): 5 On/Off Footwear (QC): 6 1=Demonstrate adherence to instructed precautions during ADL tasks. 2=Patient will verbalize/demonstrate understanding of assistive devices/modifications for ADL. 3=Patient will improve strength/tolerance for activity to enable patient to perform ADL's. OT Education/Plan Problem List/Assessment Assessment: Decreased Activ Tolerance, Impaired Funct Balance, Impaired Self- Care Skills Discharge Recommendations Plan/Recommendations: Continue POC Treatment Plan/Plan of Care Patient would benefit from OT for education, treatment and training to promote independence in ADL's, mobility, safety and/or upper extremity function for ADL's. Plan of Care: ADL Retraining, Functional Mobility, Group Exercise/Act as Ind, UE Funct Exercise/Act Treatment Duration: August 20, 2021 Frequency: 3 times per week (3-5x/week) Estimated Hrs Per Day: .25 hour per day Rehab Potential: Fair Time/GCodes Start Time: 09:35 Stop Time: 10:08 Total Time Billed (hr/min): 33 Billed Treatment Time 1 visit-ADL 2 (33 min) IZA NOEL Aug 14, 2021 10:18
[2021-08-14] MEDS: ENOXAPARIN 40 MG/0.4 ML (LOVENOX) SYR SC SCH (11:27)
[2021-08-14] MEDS: NS IV 1000 ML 1,000 ML IV SCH (11:50)
--- NOTE | 2021-08-14 15:24 | Progress Note - Cardiology ---
Cardiology SOAP Progress Note Subjective: No cp or palp or syncope or shortness of breath Gen weakness and malaise No n/v/d Objective: I&O/Vital Signs 08/14/21 08/14/21 08/14/21 08/14/21 04:26 05:57 07:13 07:19 Temp 36.6 36.6 Pulse 82 92 93 Resp 18 20 B/P (MAP) 93/61 (72) 101/62 (75) 111/75 (87) Pulse Ox 92 87 99 O2 Delivery High Flow N/C Room Air High Flow N/C O2 Flow Rate 1.00 1.00 08/14/21 08/14/21 08/14/21 08/14/21 08:00 10:49 12:03 13:00 Temp 36.9 Pulse 90 86 Resp 18 B/P (MAP) 93/64 (74) Pulse Ox 99 99 93 O2 Delivery Room Air Room Air Room Air 08/14/21 00:00 Intake Total 770 ml Balance 770 ml Weight (Pounds): 150 Weight (Calculated Kilograms): 68.400828 Constitutional: AAO x 3, well-developed, well-nourished Respiratory: No accessory muscle use; other (on mech vent) Cardiovascular: regular rate-rhythm, S1 and S2, systolic murmur (soft LIS at card basee) Gastrointestional: soft, audible bowel sounds Extremities: No clubbing, No cyanosis, No significant edema Neurologic/Psychiatric: other (awake, alert, appropriate; moving all extremities) Skin: No rash, No ulcerations Results/Procedures: Labs Laboratory Tests 08/13/21 17:20: Glucometer 95 08/13/21 23:40: Glucometer 117H 08/14/21 03:00: Sodium Level 141, Potassium Level 4.0, Chloride Level 108H, Carbon Dioxide Level 21, Anion Gap 12, Blood Urea Nitrogen 8, Creatinine 0.51L, Estimat Glomerular Filtration Rate 122, BUN/Creatinine Ratio 16, Glucose Level 93, Calcium Level 8.1L, Phosphorus Level 3.2, Magnesium Level 1.6 08/14/21 04:34: White Blood Count 8.6, Red Blood Count 3.23L, Hemoglobin 10.1L, Hematocrit 30L, Mean Corpuscular Volume 94, Mean Corpuscular Hemoglobin 31, Mean Corpuscular Hemoglobin Concent 33, Red Cell Distribution Width 12.2, Platelet Count 283, Mean Platelet Volume 9.1, Immature Granulocyte % (Auto) 1, Neutrophils (%) (Auto) 63, Lymphocytes (%) (Auto) 23, Monocytes (%) (Auto) 7, Eosinophils (%) (Auto) 7, Basophils (%) (Auto) 1, Neutrophils # (Auto) 5.5, Lymphocytes # (Auto) 1.9, Monocytes # (Auto) 0.6, Eosinophils # (Auto) 0.6H, Basophils # (Auto) 0.0, Immature Granulocyte # (Auto) 0.0 08/14/21 11:59: Glucometer 113H Microbiology 08/07/21 Urine Culture - Final, Complete NO GROWTH 08/07/21 Blood Culture - Preliminary, Resulted No growth 08/07/21 Gram Stain - Final, Complete 08/07/21 Sputum Culture - Final, Complete Usual upper respiratory kimberly Laboratory Tests 08/13/21 05:25 08/14/21 03:00 08/14/21 04:34 A/P: Assessment: Cardiac arrest and subsequent cardiogenic shock due to acute anterolat [place] - card cath of 08/07/21: mid-vessel occlusion of LAD (treated with primary angioplasty and stenting with SkyPoint 2.5x33 stent), 60-70% prox stenosis of RCA, LVEDP 39 mmHg, LVEF 25%, ant-lat and apical hypokinesis to akinesis - echo on 08/08/21: LVEF 20%, nathen-apical and nathen-lateral hypokinesis to akinesis - echo on 08/14/21: LVEF 30-35%, anteroseptal and apical hypokinesis Ac resp failure - improving Cough: CHF and/or intubation-related and/or OSMEL-inhib related - improving Plan: * Continue PT/OT * Monitor labs * Would need Life Vest * Discussed rehab. She says she will consider JACKELYN BROWN MD FACP [facility] Aug 14, 2021 15:24
--- NOTE | 2021-08-14 22:25 | Progress Note ---
Subjective Subjective/Events-last exam Patient states that she is feeling much better today and desires to go home. Denies any chest pain. Has been up walking the halls. Still having some shortness of breath with ambulation. Review of Systems General: Fatigue Pulmonary: Dyspnea Neurological: Weakness, Incoordination Objective Exam Last Set of Vital Signs Vital Signs Date Time Temp Pulse Resp B/P (MAP) Pulse Ox O2 Delivery O2 Flow Rate FiO2 08/14/21 20:00 36.8 91 18 104/56 (72) 92 Room Air 08/14/21 17:39 0.00 08/12/21 02:48 45 Capillary Refill : Less Than 3 Seconds I&O Intake and Output 08/14/21 00:00 Intake Total 970 ml Balance 970 ml Intake Oral 970 ml # Voids 6 # Bowel Movements 2 General: Alert, Oriented X3, No Acute Distress HEENT: Mucous Memb Moist/[place] Lungs: Clear to Auscultation, Normal Air Movement Heart: Regular Rate, No Murmurs Abdomen: Normal Bowel Sounds, Soft, No Tenderness Extremities: No Edema, No Tenderness/Swelling Neuro: Other (slowed gait, strength 4/5) Results/Procedures Lab Laboratory Tests 08/13/21 23:40: Glucometer 117H 08/14/21 03:00: Sodium Level 141, Potassium Level 4.0, Chloride Level 108H, Carbon Dioxide Level 21, Anion Gap 12, Blood Urea Nitrogen 8, Creatinine 0.51L, Estimat Glomerular Filtration Rate 122, BUN/Creatinine Ratio 16, Glucose Level 93, Calcium Level 8.1L, Phosphorus Level 3.2, Magnesium Level 1.6 08/14/21 04:34: White Blood Count 8.6, Red Blood Count 3.23L, Hemoglobin 10.1L, Hematocrit 30L, Mean Corpuscular Volume 94, Mean Corpuscular Hemoglobin 31, Mean Corpuscular Hemoglobin Concent 33, Red Cell Distribution Width 12.2, Platelet Count 283, Mean Platelet Volume 9.1, Immature Granulocyte % (Auto) 1, Neutrophils (%) (Auto) 63, Lymphocytes (%) (Auto) 23, Monocytes (%) (Auto) 7, Eosinophils (%) (Auto) 7, Basophils (%) (Auto) 1, Neutrophils # (Auto) 5.5, Lymphocytes # (Auto) 1.9, Monocytes # (Auto) 0.6, Eosinophils # (Auto) 0.6H, Basophils # (Auto) 0.0, Immature Granulocyte # (Auto) 0.0 08/14/21 11:59: Glucometer 113H 08/14/21 17:14: Glucometer 86 08/14/21 20:40: Glucometer 92 Microbiology 08/07/21 Urine Culture - Final, Complete NO GROWTH 08/07/21 Blood Culture - Final, Complete No growth 08/07/21 Gram Stain - Final, Complete 08/07/21 Sputum Culture - Final, Complete Usual upper respiratory kimberly Assessment/Plan Assessment/Plan (1) STEMI (ST elevation myocardial infarction) Status: Acute Assessment & Plan: 08/13: Dr Rojas managing, appreciate recommendations, Repeat echo today, 08/08 EF 15-20%, Continue DAP therapy, BB, ARB 08/14: Echo EF 30-35%, patient will need a lifevest per Dr Rojas, he is recommending acute rehab Qualifiers: Qualified Codes: I21.3 - ST elevation (STEMI) myocardial infarction of unspecified site (2) Cardiogenic shock Status: Resolved (3) Sudden cardiac arrest Status: Acute (4) Acute systolic (congestive) heart failure Status: Acute (5) Encephalopathy Status: Acute Assessment & Plan: 08/13: Mental status improving, Normal CT scan, possible anoxic brain injury due to cardiac arrest, will continue to monitor 08/14: continues to improve daily (6) DVT prophylaxis Assessment & Plan: - RAEGAN Sands MD Aug 14, 2021 22:25
[2021-08-15] VITALS (8 sets, daily range): BP systolic 86–109; BP diastolic 52–61
[2021-08-15 04:28] LABS: BASOPHILS % (AUTO) 0 % (0-10); EOSINOPHILS # (AUTO) 0.4 10^3/uL (0.0-0.3); EOSINOPHILS % (AUTO) 5 % (0-10); HEMATOCRIT 32 % (35-52); HEMOGLOBIN 10.7 g/dL (11.5-16.0); LYMPHOCYTES # (AUTO) 1.8 10^3/uL (1.0-4.0); LYMPHOCYTES % (AUTO) 25 % (12-44); MEAN CORPUSCULAR HEMOGLOBIN 31 pg (25-34); MEAN CORPUSCULAR HGB CONC 33 g/dL (32-36); MEAN CORPUSCULAR VOLUME 93 fL (80-99); MEAN PLATELET VOLUME 9.1 fL (9.0-12.2); MONOCYTES # (AUTO) 0.6 10^3/uL (0.0-1.0); MONOCYTES % (AUTO) 8 % (0-12); NEUTROPHILS # (AUTO) 4.6 10^3/uL (1.8-7.8); NEUTROPHILS % (AUTO) 62 % (42-75); PLATELET COUNT 274 10^3/uL (130-400); WHITE BLOOD COUNT 7.4 10^3/uL (4.3-11.0)
[2021-08-15 04:40] LABS: POTASSIUM 4.1 MMOL/L (3.6-5.0)
[2021-08-15 04:42] LABS: CALCIUM 8.7 MG/DL (8.5-10.1)
[2021-08-15 04:46] LABS: CREATININE SERUM 0.5 MG/DL (0.60-1.30); PHOSPHORUS 4.6 MG/DL (2.3-4.7)
[2021-08-15 04:48] LABS: MAGNESIUM 1.7 MG/DL (1.6-2.4)
[2021-08-15] MEDS: inSUlin ASPART (NovoLOG) 1 UNIT/0.01 ML (CHARGE PER UNIT) SC SCH ×3 (05:06→16:59)
[2021-08-15] MEDS: ACETAMINOPHEN 325 MG TABLET PO PRN ×2 (08:08→20:05)
[2021-08-15] MEDS: LORazepam INJ 2 MG/ML (ATIVAN) VIAL IVP PRN (08:08)
[2021-08-15] MEDS: NS IV 1000 ML 1,000 ML IV SCH (08:08)
[2021-08-15] MEDS: ASPIRIN 81 MG CHEW (CHILDREN'S ASA) PO SCH (08:55)
[2021-08-15] MEDS: PANTOPRAZOLE 40 MG (PROTONIX) VIAL IV SCH (08:55)
[2021-08-15] MEDS: CLOPIDOGREL 75 MG (PLAVIX) TABLET PO SCH (08:56)
[2021-08-15] MEDS: LOSARTAN 25 MG (COZAAR) TAB PO SCH (08:57)
[2021-08-15] MEDS: SPIRONOLACTONE 25 MG (ALDACTONE) TAB PO SCH (08:58)
[2021-08-15] MEDS: ENOXAPARIN 40 MG/0.4 ML (LOVENOX) SYR SC SCH (11:07)
--- NOTE | 2021-08-15 11:32 | Occupational Ther Daily Note ---
OT Current Status-Daily Note Subjective Pt alert, sitting in recliner. Pt is having difficulty with getting paystubs for LifeVest, SW assisting with this. Per nrsg, pt is having low BP this morning and requested GOINS to take care when working with pt. Mental Status/Objective Patient Orientation: Person, Place, Time, Situation Attachments: IV, Telemetry ADL-Treatment Therapy Code Descriptions/Definitions Functional [place] Measure: 0=Not Assessed/NA 4=Minimal Assistance 1=Total Assistance 5=Supervision or Setup 2=Maximal Assistance 6=Modified [place] 3=Moderate Assistance 7=Complete IndependenceSCALE: Activities may be completed with or without assistive devices. 4-Rfjfbylmlw-lbrtvci completes the activity by him/herself with no assistance from a helper. 5-Set-up or Clean-up Assistance-helper sets up or cleans up; patient completes activity. [place] assists only prior to or following the activity. 4-Supervision or Touching Assistance-helper provides verbal cues and/or touching/steadying and/or contact guard assistance as patient completes activity . Assistance may be provided throughout the activity or intermittently. 3-Partial/Moderate Assistance-helper does LESS THAN HALF the effort. [place] lifts, holds or supports trunk or limbs, but provides less than half the effort. 2-Substantial/Maximal Assistance-helper does MORE THAN HALF the effort. [place] lifts or holds trunk or limbs and provides more than half the effort. 1-Ukqxtplct-xsblof does ALL the effort. Patient does none of the effort to complete the activity. Or, the assistance of 2 or more helpers is required for the patient to complete the activity. If activity was not attempted, code reason: 7-Patient Refused. 9-Not Applicable-not attempted and the patient did not perform the activity before the current illness, exacerbation or injury. 10-Not Attempted due to Environmental Limitations-(lack of equipment, weather restraints, etc.). 88-Not Attempted due to Medical Conditions or Safety Concerns. Other Treatment Pt demonstrates WNL of strength and B UE ROM during functional tasks. Pt continues to demonstrate unsteadiness with mobility and difficulty with processing quickly and being aware of safety issues. After therapy, pt sitting in recliner talking with SW. Call light/phone in reach. All needs met. OT Shelter Goals Shelter Goals Time Frame: August 20, 2021 Oral Hygiene (QC): 6 Toileting Hygiene (QC): 6 Shower/Bathe Self (QC): 5 Upper Body Dressing (QC): 5 Lower Body Dressing (QC): 5 On/Off Footwear (QC): 6 1=Demonstrate adherence to instructed precautions during ADL tasks. 2=Patient will verbalize/demonstrate understanding of assistive devices/modifications for ADL. 3=Patient will improve strength/tolerance for activity to enable patient to perform ADL's. OT Education/Plan Problem List/Assessment Assessment: Decreased Activ Tolerance, Decreased Safety Aware, Impaired Funct Balance Discharge Recommendations Plan/Recommendations: Continue POC Treatment Plan/Plan of Care Patient would benefit from OT for education, treatment and training to promote independence in ADL's, mobility, safety and/or upper extremity function for ADL's. Plan of Care: ADL Retraining, Functional Mobility, Group Exercise/Act as Ind, UE Funct Exercise/Act Treatment Duration: August 20, 2021 Frequency: 3 times per week (3-5x/week) Estimated Hrs Per Day: .25 hour per day Rehab Potential: Fair Time/GCodes Start Time: 11:20 Stop Time: 11:30 Total Time Billed (hr/min): 10 Billed Treatment Time 1 visit-FA 1 (10 min) IZA NOEL Aug 15, 2021 11:32
[2021-08-15] MEDS ORDERED: ASPI81TA64 PO (12:53)
[2021-08-15] MEDS ORDERED: PANT40TA2 PO (12:53)
[2021-08-15] MEDS ORDERED: SPIR25TA5 PO (12:53)
[2021-08-15] MEDS ORDERED: CARV3.122 PO (12:53)
[2021-08-15] MEDS ORDERED: CLOP75TA28 PO (12:53)
[2021-08-15] MEDS ORDERED: LOSA25TA41 PO (12:53)
--- NOTE | 2021-08-15 12:58 | Discharge Inst-Cardiology ---
Discharge Inst-Cardiac Discharge Medications New Medications: Pantoprazole Sodium (Protonix) 40 Mg Tablet.dr 40 MG PO DAILY, #30 TAB 3 Refills Aspirin (Children's Aspirin) 81 Mg Tab.chew 81 MG PO DAILY, #90 TAB 3 Refills Carvedilol (Carvedilol) 3.125 Mg Tablet 3.125 MG PO BID, #180 TAB 3 Refills Clopidogrel Bisulfate (Clopidogrel) 75 Mg Tablet 75 MG PO DAILY, #90 TAB 3 Refills Losartan Potassium (Losartan Potassium) 25 Mg Tablet 12.5 MG PO DAILY, #90 TAB 3 Refills Spironolactone (Spironolactone) 25 Mg Tablet 25 MG PO DAILY, #90 TAB 3 Refills Continued Medications: Acetaminophen (Tylenol Extra Strength) 500 Mg Tablet 1000 MG PO Q6H PRN for PAIN-MILD (1-4), TAB TAKES 2 (500MG) TAB Atorvastatin Calcium (Atorvastatin Calcium) 80 Mg Tablet 80 MG PO DAILY Multivit-Minerals/Ferrous Gluc (Multi-Cornelia Liquid) 9 Mg Iron/15 Ml Liquid 9 MG PO DAILY, EA Discontinued Medications: Norgestimate-Ethinyl Estradiol (Tri-Lo-Marie Tablet) [id number] Lo Tablet 1 EACH PO DAILY New, Converted or Re-Newed RX: Transmitted to Pharmacy Patient Instructions Patient Instructions: Please schedule follow up appointment to see Dr. Rojas in 1 weeks Please have lab, BMP and Magnesium level done prior to follow up appointment Please be compliant with Life Vest as instructed KIRT OLIVER Aug 15, 2021 12:58
--- NOTE | 2021-08-15 14:42 | Physical Therapy Daily Note ---
PT Daily Note-Current Subjective Patient in bed pre tx, agrees to PT, has no complaints of pain. Appearance Patient in bed post tx with nurse call, phone, tray, all needs met. Mental Status Patient Orientation: Person, Place, Situation Attachments: IV Transfers SCALE: Activities may be completed with or without assistive devices. 4-Cjcbxoavpy-jzpseny completes the activity by him/herself with no assistance from a helper. 5-Set-up or Clean-up Assistance-helper sets up or cleans up; patient completes activity. [place] assists only prior to or following the activity. 4-Supervision or Touching Assistance-helper provides verbal cues and/or touching/steadying and/or contact guard assistance as patient completes activity. Assistance may be provided throughout the activity or intermittently. 3-Partial/Moderate Assistance-helper does LESS THAN HALF the effort. [place] lifts, holds or supports trunk or limbs, but provides less than half the effort. 2-Substantial/Maximal Assistance-helper does MORE THAN HALF the effort. [place] lifts or holds trunk or limbs and provides more than half the effort. 1-Dvwozrzqb-zpvlcv does ALL the effort. Patient does none of the effort to complete the activity. Or, the assistance of 2 or more helpers is required for the patient to complete the activity. If activity was not attempted, code reason: 7-Patient Refused. 9-Not Applicable-not attempted and the patient did not perform the activity before the current illness, exacerbation or injury. 10-Not Attempted due to Environmental Limitations-(lack of equipment, weather restraints, etc.). 88-Not Attempted due to Medical Conditions or Safety Concerns. Roll Left & Right (QC): 4 Sit to Lying (QC): 4 Lying to Sitting/Side of Bed(Q: 4 Sit to Stand (QC): 4 Chair/Uxt-bs-Rqxqs Xfer(QC): 4 Gait Training Distance: 500' Walk 10 feet (QC): 4 Walk 50 ft with 2 Turns(QC): 4 Walk 150 ft (QC): 4 Gait Persons Needed: 1 Gait Assistive Device: FWW Patient had slow ambulation and was unsteady but didn't have a betsy LOB or need assist from therapist to maintain balance. Treatments bed mobility and transfers, ambulation Assessment Current Status: Fair Progress improving endurance but still unsteady with ambulation PT Senior Living Goals Senior Living Goals PT Senior Living Goals Time Frame: August 25, 2021 Roll Left & Right (QC): 6 Sit to Lying (QC): 6 Lying-Sitting on Side/Bed(QC): 6 Sit to Stand (QC): 6 Chair/Gdd-ta-Ttaib Xfer(QC): 6 Toilet Transfer (QC): 6 Walk 10 feet (QC): 6 Walk 50ft with 2 Turns (QC): 6 Walk 150 ft (QC): 6 PT Plan Problem List Problem List: Activity Tolerance, Functional Strength, Safety, Balance, Gait, Transfer, Bed Mobility, ROM Treatment/Plan Treatment Plan: Continue Plan of Care Treatment Plan: Education, Functional Activity Heidi, Functional Strength, Gait, Safety, Therapeutic Exercise, Transfers Treatment Duration: August 25, 2021 Frequency: 6 times per week Estimated Hrs Per Day: .25 hour per day Patient and/or Family Agrees t: Yes Safety Risks/Education Patient Education: Gait Training, Transfer Techniques, Correct Positioning, Safety Issues Teaching Recipient: Patient Teaching Methods: Demonstration, Discussion Response to Teaching: Reinforcement Needed Time/GCodes Time In: 1355 Time Out: 1405 Total Billed Treatment Time: 10 Total Billed Treatment 1 visit GT 10' TERRY BUSBY PT Aug 15, 2021 14:42
--- NOTE | 2021-08-15 16:52 | Progress Note - Cardiology ---
Cardiology SOAP Progress Note Subjective: Somnolent Does not report any symptoms Mother by bedside who feels the patient has been doing well Objective: I&O/Vital Signs 08/15/21 08/15/21 08/15/21 08/15/21 07:00 07:58 08:00 08:19 Temp 37.0 Pulse 90 90 Resp 18 B/P (MAP) 105/61 (76) Pulse Ox 95 95 95 O2 Delivery Room Air Room Air Room Air O2 Flow Rate 0.00 0.00 08/15/21 08/15/21 11:42 13:00 Temp 36.8 Pulse 76 82 Resp 18 B/P (MAP) 89/54 (66) Pulse Ox 91 O2 Delivery Room Air 08/15/21 00:00 Intake Total 780 ml Balance 780 ml Weight (Pounds): 150 Weight (Calculated Kilograms): 68.806895 Constitutional: AAO x 3 (lethargic this morning following IV Ativan this morning), well-developed, well-nourished Respiratory: No accessory muscle use; other (on mech vent) Cardiovascular: regular rate-rhythm, S1 and S2, systolic murmur (soft LIS at card basee) Gastrointestional: soft, audible bowel sounds Extremities: No clubbing, No cyanosis, No significant edema Neurologic/Psychiatric: other (awake, alert, appropriate; moving all extremities) Skin: No rash, No ulcerations Results/Procedures: Labs Laboratory Tests 08/14/21 17:14: Glucometer 86 08/14/21 20:40: Glucometer 92 08/14/21 23:17: Glucometer 129H 08/15/21 04:20: White Blood Count 7.4, Red Blood Count 3.47L, Hemoglobin 10.7L, Hematocrit 32L, Mean Corpuscular Volume 93, Mean Corpuscular Hemoglobin 31, Mean Corpuscular Hemoglobin Concent 33, Red Cell Distribution Width 12.3, Platelet Count 274, Mean Platelet Volume 9.1, Immature Granulocyte % (Auto) 1, Neutrophils (%) (Auto) 62, Lymphocytes (%) (Auto) 25, Monocytes (%) (Auto) 8, Eosinophils (%) (Auto) 5, Basophils (%) (Auto) 0, Neutrophils # (Auto) 4.6, Lymphocytes # (Auto) 1.8, Monocytes # (Auto) 0.6, Eosinophils # (Auto) 0.4H, Basophils # (Auto) 0.0, Immature Granulocyte # (Auto) 0.1, Sodium Level 140, Potassium Level 4.1, Chloride Level 105, Carbon Dioxide Level 22, Anion Gap 13, Blood Urea Nitrogen 8, Creatinine 0.50L, Estimat Glomerular Filtration Rate 122, BUN/Creatinine Ratio 16, Glucose Level 87, Calcium Level 8.7, Phosphorus Level 4.6, Magnesium Level 1.7 08/15/21 11:35: Glucometer 98 08/15/21 16:31: Glucometer 72 Microbiology 08/07/21 Urine Culture - Final, Complete NO GROWTH 08/07/21 Blood Culture - Final, Complete No growth 08/07/21 Gram Stain - Final, Complete 08/07/21 Sputum Culture - Final, Complete Usual upper respiratory kimberly Laboratory Tests 08/14/21 03:00 08/14/21 04:34 08/15/21 04:20 A/P: Assessment: Cardiac arrest and subsequent cardiogenic shock due to acute anterolat [place] - card cath of 08/07/21: mid-vessel occlusion of LAD (treated with primary angioplasty and stenting with SkyPoint 2.5x33 stent), 60-70% prox stenosis of RCA, LVEDP 39 mmHg, LVEF 25%, ant-lat and apical hypokinesis to akinesis - echo on 08/08/21: LVEF 20%, nathen-apical and nathen-lateral hypokinesis to timbo nesis ICM - Life vest placement prior to discharge Ac resp failure - resolved Cough: CHF and/or intubation-related and/or OSMEL-inhib related - improved Plan: * May d/c after Life Vest placement * Cardiac rehab as an out pt * Continue PT/OT * Monitor labs * Discussed plan of care and discharge planning at length with mother at the bedside, answered questions [facility] BROWN [facility] Aug 15, 2021 16:52
--- NOTE | 2021-08-15 20:09 | Progress Note ---
Subjective Subjective/Events-last exam Patient ready to go home. She is awaiting information from [facility]. Denies any chest pain or shortness of breath. She was able to tolerate walking further today Review of Systems General: Fatigue, Malaise Neurological: Weakness, Incoordination Objective Exam Last Set of Vital Signs Vital Signs Date Time Temp Pulse Resp B/P (MAP) Pulse Ox O2 Delivery O2 Flow Rate FiO2 08/15/21 19:00 99 08/15/21 16:00 36.9 20 109/60 (76) 95 Room Air 08/15/21 08:19 0.00 08/12/21 02:48 45 Capillary Refill : Less Than 3 Seconds I&O Intake and Output 08/15/21 00:00 Intake Total 980 ml Balance 980 ml Intake Oral 980 ml # Voids 10 General: Alert, Oriented X3, No Acute Distress Lungs: Clear to Auscultation, Normal Air Movement Heart: Regular Rate, No Murmurs Abdomen: Normal Bowel Sounds, Soft, No Tenderness Extremities: No Edema, No Tenderness/Swelling Results/Procedures Lab Laboratory Tests 08/14/21 20:40: Glucometer 92 08/14/21 23:17: Glucometer 129H 08/15/21 04:20: White Blood Count 7.4, Red Blood Count 3.47L, Hemoglobin 10.7L, Hematocrit 32L, Mean Corpuscular Volume 93, Mean Corpuscular Hemoglobin 31, Mean Corpuscular Hemoglobin Concent 33, Red Cell Distribution Width 12.3, Platelet Count 274, Mean Platelet Volume 9.1, Immature Granulocyte % (Auto) 1, Neutrophils (%) (Auto) 62, Lymphocytes (%) (Auto) 25, Monocytes (%) (Auto) 8, Eosinophils (%) (Auto) 5, Basophils (%) (Auto) 0, Neutrophils # (Auto) 4.6, Lymphocytes # (Auto) 1.8, Monocytes # (Auto) 0.6, Eosinophils # (Auto) 0.4H, Basophils # (Auto) 0.0, Immature Granulocyte # (Auto) 0.1, Sodium Level 140, Potassium Level 4.1, Chloride Level 105, Carbon Dioxide Level 22, Anion Gap 13, Blood Urea Nitrogen 8, Creatinine 0.50L, Estimat Glomerular Filtration Rate 122, BUN/Creatinine Ratio 16, Glucose Level 87, Calcium Level 8.7, Phosphorus Level 4.6, Magnesium Level 1.7 08/15/21 11:35: Glucometer 98 08/15/21 16:31: Glucometer 72 Microbiology 08/07/21 Urine Culture - Final, Complete NO GROWTH 08/07/21 Blood Culture - Final, Complete No growth 08/07/21 Gram Stain - Final, Complete 08/07/21 Sputum Culture - Final, Complete Usual upper respiratory kimberly Assessment/Plan Assessment/Plan (1) STEMI (ST elevation myocardial infarction) Status: Acute Assessment & Plan: 08/13: Dr Rojas managing, appreciate recommendations, Repeat echo today, 08/08 EF 15-20%, Continue DAP therapy, BB, ARB 08/14: Echo EF 30-35%, patient will need a lifevest per Dr Rojas, he is recommending acute rehab 08/15: Patient wishes to go home, awaiting on lifevest Qualifiers: Qualified Codes: I21.3 - ST elevation (STEMI) myocardial infarction of unspecified site (2) Cardiogenic shock Status: Resolved (3) Sudden cardiac arrest Status: Acute (4) Acute systolic (congestive) heart failure Status: Acute (5) Encephalopathy Status: Acute Assessment & Plan: 08/13: Mental status improving, Normal CT scan, possible anoxic brain injury due to cardiac arrest, will continue to monitor 08/14: continues to improve daily (6) DVT prophylaxis Assessment & Plan: - RAEGAN Sands MD Aug 15, 2021 20:09
[2021-08-16] VITALS: BP 90/53
[2021-08-16 04:11] VITALS: BP 103/59
[2021-08-16 04:28] LABS: BASOPHILS % (AUTO) 0 % (0-10); EOSINOPHILS # (AUTO) 0.3 10^3/uL (0.0-0.3); EOSINOPHILS % (AUTO) 4 % (0-10); HEMATOCRIT 34 % (35-52); HEMOGLOBIN 11.2 g/dL (11.5-16.0); LYMPHOCYTES # (AUTO) 1.5 10^3/uL (1.0-4.0); LYMPHOCYTES % (AUTO) 19 % (12-44); MEAN CORPUSCULAR HEMOGLOBIN 31 pg (25-34); MEAN CORPUSCULAR HGB CONC 33 g/dL (32-36); MEAN CORPUSCULAR VOLUME 93 fL (80-99); MEAN PLATELET VOLUME 9.3 fL (9.0-12.2); MONOCYTES # (AUTO) 0.5 10^3/uL (0.0-1.0); MONOCYTES % (AUTO) 6 % (0-12); NEUTROPHILS # (AUTO) 5.4 10^3/uL (1.8-7.8); NEUTROPHILS % (AUTO) 70 % (42-75); PLATELET COUNT 305 10^3/uL (130-400); WHITE BLOOD COUNT 7.8 10^3/uL (4.3-11.0)
[2021-08-16 04:51] LABS: CALCIUM 9.2 MG/DL (8.5-10.1); CREATININE SERUM 0.61 MG/DL (0.60-1.30); MAGNESIUM 1.7 MG/DL (1.6-2.4); PHOSPHORUS 5.6 MG/DL (2.3-4.7); POTASSIUM 4.1 MMOL/L (3.6-5.0)
[2021-08-16] MEDS: NS IV 1000 ML 1,000 ML IV SCH (06:04)
[2021-08-16 08:08] VITALS: BP 103/59
[2021-08-16] MEDS ORDERED: PANTOPRAZOLE 40 MG (PROTONIX) TAB PO SCH (09:00)
--- NOTE | 2021-08-16 09:03 | Physical Therapy Daily Note ---
PT Daily Note-Current Subjective Pt agrees to PT. Pt has no complaints of pain and states she is ready to go home. Mental Status Patient Orientation: Normal For Age Attachments: IV Transfers SCALE: Activities may be completed with or without assistive devices. 9-Mawdqxsdtg-yjsmaau completes the activity by him/herself with no assistance from a helper. 5-Set-up or Clean-up Assistance-helper sets up or cleans up; patient completes activity. [place] assists only prior to or following the activity. 4-Supervision or Touching Assistance-helper provides verbal cues and/or touching/steadying and/or contact guard assistance as patient completes activity. Assistance may be provided throughout the activity or intermittently. 3-Partial/Moderate Assistance-helper does LESS THAN HALF the effort. Rothschild lifts, holds or supports trunk or limbs, but provides less than half the effort. 2-Substantial/Maximal Assistance-helper does MORE THAN HALF the effort. [place] lifts or holds trunk or limbs and provides more than half the effort. 0-Qmqjffvcu-xjldom does ALL the effort. Patient does none of the effort to complete the activity. Or, the assistance of 2 or more helpers is required for the patient to complete the activity. If activity was not attempted, code reason: 7-Patient Refused. 9-Not Applicable-not attempted and the patient did not perform the activity before the current illness, exacerbation or injury. 10-Not Attempted due to Environmental Limitations-(lack of equipment, weather restraints, etc.). 88-Not Attempted due to Medical Conditions or Safety Concerns. Roll Left & Right (QC): 6 Sit to Lying (QC): 6 Lying to Sitting/Side of Bed(Q: 6 Sit to Stand (QC): 6 independent for all bed mobility Gait Training Does the Patient Walk?: Yes Distance: 250' Walk 10 feet (QC): 4 Walk 50 ft with 2 Turns(QC): 4 Walk 150 ft (QC): 4 Gait Persons Needed: 1 Gait Assistive Device: Cane Large Base Quad CGA for amb. Exercises Supine Ex: Ankle pumps, Quad Set, Glut sets, Heel Slides Supine Reps: 10 Seated Therapy Exercises: Ankle pumps, Long arc quads, Hip flexion, Hip abd/add, Glut set Seated Reps: 10 Assessment Current Status: Good Progress Pt completes EX with ease and had no LOB while amb. PT Fpc Goals Fpc Goals PT Window Caser Goals Time Frame: August 25, 2021 Roll Left & Right (QC): 6 Sit to Lying (QC): 6 Lying-Sitting on Side/Bed(QC): 6 Sit to Stand (QC): 6 Chair/Tza-wa-Cmjzr Xfer(QC): 6 Toilet Transfer (QC): 6 Walk 10 feet (QC): 6 Walk 50ft with 2 Turns (QC): 6 Walk 150 ft (QC): 6 PT Plan Treatment/Plan Treatment Plan: Continue Plan of Care Treatment Plan: Education, Functional Activity Heidi, Functional Strength, Gait, Safety, Therapeutic Exercise, Transfers Treatment Duration: August 25, 2021 Frequency: 6 times per week Estimated Hrs Per Day: .25 hour per day Patient and/or Family Agrees t: Yes Time/GCodes Time In: 800 Time Out: 813 Total Billed Treatment Time: 13 Total Billed Treatment 1, FA (13 min) HINA PLASCENCIA PT Aug 16, 2021 09:03
[2021-08-16] MEDS: CLOPIDOGREL 75 MG (PLAVIX) TABLET PO SCH (09:27)
[2021-08-16] MEDS: SPIRONOLACTONE 25 MG (ALDACTONE) TAB PO SCH (09:27)
[2021-08-16] MEDS: ASPIRIN 81 MG CHEW (CHILDREN'S ASA) PO SCH (09:27)
[2021-08-16] MEDS: LOSARTAN 25 MG (COZAAR) TAB PO SCH (09:28)
--- NOTE | 2021-08-16 09:44 | Progress Note - Cardiology ---
Cardiology SOAP Progress Note Subjective: No cp or palp or syncope or shortness of breath No n/v/d Wishes to go home Objective: I&O/Vital Signs 08/16/21 08/16/21 08/16/21 08/16/21 00:00 01:00 04:11 07:00 Temp 36.0 36.4 Pulse 83 86 78 85 Resp 16 16 B/P (MAP) 90/53 (65) 103/59 (74) Pulse Ox 93 95 O2 Delivery Room Air Room Air 08/16/21 08:08 Temp 36.6 Pulse 90 Resp 18 B/P (MAP) 103/59 (74) Pulse Ox 95 O2 Delivery Room Air 08/16/21 00:00 Intake Total 1480 ml Balance 1480 ml Weight (Pounds): 150 Weight (Calculated Kilograms): [id number] Constitutional: AAO x 3 (lethargic this morning following IV Ativan this morning), well-developed, well-nourished Respiratory: No accessory muscle use; other (on mech vent) Cardiovascular: regular rate-rhythm, S1 and S2, systolic murmur (soft LIS at card basee) Gastrointestional: soft, audible bowel sounds Extremities: No clubbing, No cyanosis, No significant edema Neurologic/Psychiatric: other (awake, alert, appropriate; moving all ex tremities) Skin: No rash, No ulcerations Results/Procedures: Labs Laboratory Tests 08/15/21 11:35: Glucometer 98 08/15/21 16:31: Glucometer 72 08/15/21 20:48: Glucometer 109 08/16/21 04:12: White Blood Count 7.8, Red Blood Count 3.62L, Hemoglobin 11.2L, Hematocrit 34L, Mean Corpuscular Volume 93, Mean Corpuscular Hemoglobin 31, Mean Corpuscular Hemoglobin Concent 33, Red Cell Distribution Width 12.5, Platelet Count 305, Mean Platelet Volume 9.3, Immature Granulocyte % (Auto) 1, Neutrophils (%) (Auto) 70, Lymphocytes (%) (Auto) 19, Monocytes (%) (Auto) 6, Eosinophils (%) (Auto) 4, Basophils (%) (Auto) 0, Neutrophils # (Auto) 5.4, Lymphocytes # (Auto) 1.5, Monocytes # (Auto) 0.5, Eosinophils # (Auto) 0.3, Basophils # (Auto) 0.0, Immature Granulocyte # (Auto) 0.1, Sodium Level 143, Potassium Level 4.1, Chloride Level 106, Carbon Dioxide Level 21, Anion Gap 16H, Blood Urea Nitrogen 11, Creatinine 0.61, Estimat Glomerular Filtration Rate 117, BUN/Creatinine Ratio 18, Glucose Level 96, Calcium Level 9.2, Phosphorus Level 5.6H, Magnesium Level 1.7 Microbiology 08/07/21 Urine Culture - Final, Complete NO GROWTH 08/07/21 Blood Culture - Final, Complete No growth 08/07/21 Gram Stain - Final, Complete 08/07/21 Sputum Culture - Final, Complete Usual upper respiratory kimberly Laboratory Tests 08/15/21 04:20 08/16/21 04:12 A/P: Assessment: Cardiac arrest and subsequent cardiogenic shock due to acute anterolat MD - card cath of 08/07/21: mid-vessel occlusion of LAD (treated with primary angioplasty and stenting with SkyPoint 2.5x33 stent), 60-70% prox stenosis of RCA, LVEDP 39 mmHg, LVEF 25%, ant-lat and apical hypokinesis to akinesis - echo on 08/08/21: LVEF 20%, nathen-apical and nathen-lateral hypokinesis to akinesis ICM - Life vest placement prior to discharge Ac resp failure - resolved Cough: CHF and/or intubation-related and/or OSMEL-inhib related - resolved Plan: * August d/c after Life Vest placement * Cardiac rehab as an out pt * Continue PT/OT * Monitor labs * We discussed her CV issues and answered questions JACKELYN BROWN MD FACP [facility] CCDS Aug 16, 2021 09:44
--- NOTE | 2021-08-16 09:46 | Cardiology Discharge Summary ---
Diagnosis/Chief Complaint Date of Admission Aug 07, 2021 at 14:26 Date of Discharge 08/16/21 Final/Discharge Diagnosis Cardiac arrest and subsequent cardiogenic shock due to acute anterolat MO - card cath of 08/07/21: mid-vessel occlusion of LAD (treated with primary angioplasty and stenting with SkyPoint 2.5x33 stent), 60-70% prox stenosis of RCA, LVEDP 39 mmHg, LVEF 25%, ant-lat and apical hypokinesis to akinesis - echo on 08/08/21: LVEF 20%, nathen-apical and nathne-lateral hypokinesis to akinesis ICM - Life vest placement prior to discharge Ac resp failure - resolved Cough: CHF and/or intubation-related and/or OSMEL-inhib related - resolved Chief Complaint/HPI Chief Complaint/HPI 41 yo woman who presented to the ER in cardiac arrest. No history available. Stated to have gone to her doctor's for shortness of breath. Underwent resuscitation in the ER. Details of that are to be provided by the ER physician. Pulse and bp were restored, but remained in shock, requiring pressor support. ECG showed ant-lat ST elevation, indicating an MO as the source of her arrest and shock. Emergency cath was recommended, despite apparently very poor prognosis. I spoke with her only relative present (a 19 yo daughter) who agreed with emergency cath For condition at discharge, please see our progress note of today's date Discharge Summary Procedures None. Hospital Course Pending Labs Laboratory Tests 08/16/21 04:12: White Blood Count 7.8, Red Blood Count 3.62, Hemoglobin 11.2, Hematocrit 34, Mean Corpuscular Volume 93, Mean Corpuscular Hemoglobin 31, Mean Corpuscular Hemoglobin Concent 33, Red Cell Distribution Width 12.5, Platelet Count 305, Mean Platelet Volume 9.3, Immature Granulocyte % (Auto) 1, Neutrophils (%) (Auto) 70, Lymphocytes (%) (Auto) 19, Monocytes (%) (Auto) 6, Eosinophils (%) (Auto) 4, Basophils (%) (Auto) 0, Neutrophils # (Auto) 5.4, Lymphocytes # (Auto) 1.5, Monocytes # (Auto) 0.5, Eosinophils # (Auto) 0.3, Basophils # (Auto) 0.0, Immature Granulocyte # (Auto) 0.1, Sodium Level 143, Potassium Level 4.1, Chloride Level 106, Carbon Dioxide Level 21, Anion Gap 16, Blood Urea Nitrogen 11, Creatinine 0.61, Estimat Glomerular Filtration Rate 117, BUN/Creatinine Ratio 18, Glucose Level 96, Calcium Level 9.2, Phosphorus Level 5.6, Magnesium Level 1.7 Discussion & Recommendations Home Medications Reviewed patient Home Medication Reconciliation performed by pharmacy medication reconciliations test cell technician and/or nursing. Patients Allergies have been reviewed. Discharge Home Medications: Reviewed and agree with Discharge Medication list on patient's Discharge Instruction sheet JACKELYN BROWN MD FACP [facility]S Aug 16, 2021 09:46
--- NOTE | 2021-08-16 11:07 | Occ Therapy Progress Note ---
Therapy Progress Note OT visited with pt and family, they report they are just waiting on LifeVest, then plan to discharge home. Pt declined UE exercises and self care. OT provided education on purpose of OT, but she continued to decline. Family and pt indicate no concerns with her ability to complete ADLs at home, and do not wish to have further OT services. Pt instructed to let her nurse know if they have any further concerns and new orders can be issued, they verbalize understanding. D/C from OT services at this time per pt and family request. 1, refusal D/C from OT EULOGIO BALTAZAR OT Aug 16, 2021 11:07
[2021-08-16] MEDS: ENOXAPARIN 40 MG/0.4 ML (LOVENOX) SYR SC SCH (11:41)
[2021-08-16 12:11] VITALS: BP 103/59
[2021-08-16 16:03] VITALS: BP 90/59
== END 2021-08-16 18:09 | disposition home or self-care (01) | DRG 246 ==
LOC: EDUNIT# 12:06 → ER 12:09 → CATH 14:25 → ICU 14:25 → CATH 16:09 → 4TH 08-12 16:56
PROVIDERS: ADMIT Internal Medicine Cardiovascular Disease; ATTEND Internal Medicine Cardiovascular Disease
PROC: 027034Z Dilation of Coronary Artery, One Artery with Drug-eluting Intraluminal Device, Percutaneous Approach (ICD-10-PCS; principal; 2021-08-07)
PROC: 4A023N7 Measurement of Cardiac Sampling and Pressure, Left Heart, Percutaneous Approach (ICD-10-PCS; 2021-08-07)
PROC: B2111ZZ Fluoroscopy of Multiple Coronary Arteries using Low Osmolar Contrast (ICD-10-PCS; 2021-08-07)
PROC: B2151ZZ Fluoroscopy of Left Heart using Low Osmolar Contrast (ICD-10-PCS; 2021-08-07)
PROC: 5A1945Z Respiratory Ventilation, 24-96 Consecutive Hours (ICD-10-PCS; 2021-08-07)
PROC: 0BH18EZ Insertion of Endotracheal Airway into Trachea, Via Natural or Artificial Opening Endoscopic (ICD-10-PCS; 2021-08-07)
PROC: 5A12012 Performance of Cardiac Output, Single, Manual (ICD-10-PCS; 2021-08-07)
PROC: 5A2204Z Restoration of Cardiac Rhythm, Single (ICD-10-PCS; 2021-08-07)
PROC: 5A09357 Assistance with Respiratory Ventilation, Less than 24 Consecutive Hours, Continuous Positive Airway Pressure (ICD-10-PCS; 2021-08-09)
PROC: 5A0945A Assistance with Respiratory Ventilation, 24-96 Consecutive Hours, High Flow/Velocity Cannula (ICD-10-PCS; 2021-08-10)
DX: I21.02 ST elevation (STEMI) myocardial infarction involving left anterior descending coronary artery (principal); I46.2 Cardiac arrest due to underlying cardiac condition; R57.0 Cardiogenic shock; I49.01 Ventricular fibrillation; J96.01 Acute respiratory failure with hypoxia; I50.21 Acute systolic (congestive) heart failure; I47.2 Ventricular tachycardia; G93.1 Anoxic brain damage, not elsewhere classified; E87.2 Acidosis; I25.10 Atherosclerotic heart disease of native coronary artery without angina pectoris; I25.5 Ischemic cardiomyopathy; R73.9 Hyperglycemia, unspecified; E87.6 Hypokalemia; E83.51 Hypocalcemia; E83.39 Other disorders of phosphorus metabolism; D72.829 Elevated white blood cell count, unspecified; R74.01 Elevation of levels of liver transaminase levels; F41.9 Anxiety disorder, unspecified; Z88.1 Allergy status to other antibiotic agents; Z91.040 Latex allergy status
CPT/HCPCS: 31500; 36415; 36569; 36680; 51702; 70450; 71045; 76937; 80048; 80053; 80076; 80306; 81000; 82150; 82550; 82805; 82947; 83036; 83605; 83690; 83735; 84100; 84145; 84478; 84484; 84703; 85007; 85025; 85027; 85379; 85384; 85610; 85730; 86850; 86900; 86901; 87040; 87070; 87088; 87205; 93005; 93306; 93458; 94002; 94003; 94640; 94660; 94760; 94799

== ENCOUNTER → 2021-08-22 | Outpatient (CLI) | payer OTHER ==
[~2021-08-22] MED LIST changes: +ACET-2267 PO; +ASPI81TA64 PO; +ATOR80TA76 PO; +CARV3.122 PO; +CLOP75TA28 PO; +LOSA25TA41 PO; +MULT9LIQ9 PO; +NORG-41 PO; +PANT40TA2 PO; +SPIR25TA5 PO
[2021-08-22 11:04] LABS: CALCIUM 9.2 MG/DL (8.5-10.1); CREATININE SERUM 0.62 MG/DL (0.60-1.30); MAGNESIUM 1.8 MG/DL (1.6-2.4); POTASSIUM 3.9 MMOL/L (3.6-5.0)
== END ==
LOC: LAB 10:05
PROVIDERS: ATTEND Nurse Practitioner Family
DX: I50.21 Acute systolic (congestive) heart failure (principal)
CPT/HCPCS: 36415; 80048; 83735

== ENCOUNTER → 2021-09-06 | Outpatient (CLI) | payer OTHER ==
[2021-09-06 10:59] LABS: POTASSIUM 3.8 MMOL/L (3.6-5.0)
[2021-09-06 11:00] LABS: CALCIUM 9.1 MG/DL (8.5-10.1)
[2021-09-06 11:05] LABS: CREATININE SERUM 0.63 MG/DL (0.60-1.30)
[2021-09-06 11:07] LABS: MAGNESIUM 1.8 MG/DL (1.6-2.4)
== END ==
LOC: LAB 07:38
PROVIDERS: ATTEND Internal Medicine Cardiovascular Disease
DX: I25.10 Atherosclerotic heart disease of native coronary artery without angina pectoris (principal); I25.5 Ischemic cardiomyopathy; Z86.74 Personal history of sudden cardiac arrest
CPT/HCPCS: 36415; 80048; 83735

== ENCOUNTER → 2021-10-23 | Outpatient (CLI) | payer OTHER | LOC: CARD 11:00 | PROVIDERS: ATTEND Nurse Practitioner Family | DX: I25.5 Ischemic cardiomyopathy (principal); I25.10 Atherosclerotic heart disease of native coronary artery without angina pectoris | CPT/HCPCS: 93306 ==

== ENCOUNTER → 2022-04-30 | Outpatient (CLI) | payer OTHER ==
[2022-04-30 11:44] LABS: BASOPHILS % (AUTO) 0 % (0-10); EOSINOPHILS # (AUTO) 0.1 10^3/uL (0.0-0.3); EOSINOPHILS % (AUTO) 2 % (0-10); HEMATOCRIT 39 % (35-52); LYMPHOCYTES # (AUTO) 1.4 10^3/uL (1.0-4.0); LYMPHOCYTES % (AUTO) 19 % (12-44); MEAN CORPUSCULAR HEMOGLOBIN 31 pg (25-34); MEAN CORPUSCULAR HGB CONC 33 g/dL (32-36); MEAN CORPUSCULAR VOLUME 93 fL (80-99); MEAN PLATELET VOLUME 9.3 fL (9.0-12.2); MONOCYTES # (AUTO) 0.4 10^3/uL (0.0-1.0); MONOCYTES % (AUTO) 5 % (0-12); NEUTROPHILS # (AUTO) 5.6 10^3/uL (1.8-7.8); NEUTROPHILS % (AUTO) 74 % (42-75); PLATELET COUNT 277 10^3/uL (130-400); WHITE BLOOD COUNT 7.5 10^3/uL (4.3-11.0)
[2022-04-30 12:08] LABS: ALBUMIN 4.3 GM/DL (3.2-4.5); BILIRUBIN,TOTAL 0.6 MG/DL (0.1-1.0); CALCIUM 9.4 MG/DL (8.5-10.1); CREATININE SERUM 0.66 MG/DL (0.60-1.30); TOTAL PROTEIN 6.9 GM/DL (6.4-8.2)
[2022-04-30 12:24] LABS: FREE T4 (FREE THYROXINE) 0.96 NG/DL (0.70-1.48)
--- NOTE | 2022-04-30 15:02 | Diagnostic Imaging Report ---
PROCEDURE: MR imaging of the brain without contrast. TECHNIQUE: Multiplanar, multisequence MR imaging of the brain was performed without contrast. INDICATION: Memory problems. COMPARISON: No prior studies are available for comparison. FINDINGS: The ventricles and sulci are within normal limits. No sulcal effacement or midline shift is identified. There is no diffusion restriction. The normal expected flow-voids within the carotid siphons are seen. No acute intra-axial or extra-axial hemorrhage is detected. The corpus callosum is unremarkable. The sella and parasellar structures are unremarkable. IMPRESSION: Unremarkable noncontrast MRI of the brain. Dictated by: Dictated on workstation # [id number]
== END ==
LOC: RAD 11:21
PROVIDERS: ATTEND Psychiatry & Neurology Neurology
DX: R41.3 Other amnesia (principal)
CPT/HCPCS: 36415; 70551; 80053; 82607; 83921; 84439; 84443; 85025; 86780

== ENCOUNTER → 2022-06-24 | Outpatient (CLI) | payer OTHER ==
[2022-06-24 11:08] LABS: BILIRUBIN,TOTAL 0.5 MG/DL (0.1-1.0); CALCIUM 9.4 MG/DL (8.5-10.1); CREATININE SERUM 0.69 MG/DL (0.60-1.30); POTASSIUM 3.9 MMOL/L (3.6-5.0); TOTAL PROTEIN 6.9 GM/DL (6.4-8.2)
== END ==
LOC: LAB 10:23
PROVIDERS: ATTEND Nurse Practitioner Family
DX: I25.10 Atherosclerotic heart disease of native coronary artery without angina pectoris (principal); I25.5 Ischemic cardiomyopathy; E78.2 Mixed hyperlipidemia; Z86.74 Personal history of sudden cardiac arrest
CPT/HCPCS: 36415; 80053; 80061